=== PATIENT | female | born 1945 | race Caucasian/White ===

== ENCOUNTER → 2018-07-18 12:55 | Outpatient (CLI) | payer MEDICARE, SELFPAY ==
--- NOTE | 2018-07-18 | DI.MG.S_ITS ---
BILATERAL DIGITAL SCREENING MAMMOGRAM 3D/2D WITH CAD: 07/18/2018 CLINICAL: Routine screening. Comparison is made to exams dated: 02/05/2011 mammogram, 02/03/2010 mammogram, and 12/13/2008 mammogram - [facility]. The tissue of both breasts is heterogeneously dense. This may lower the sensitivity of mammography. Current study was also evaluated with a Computer Aided Detection (CAD) system. There is a focal asymmetry in the right breast central to the nipple middle depth. There also is a focal asymmetry with grouped calcifications in the right breast at 5 o'clock posterior depth. No other significant masses, calcifications, or other findings are seen in either breast. IMPRESSION: INCOMPLETE: NEEDS ADDITIONAL IMAGING EVALUATION The focal asymmetry in the right breast central to the nipple middle depth is indeterminate. Additional views with possible ultrasound are recommended. The focal asymmetry in the right breast at 5 o'clock posterior depth is indeterminate. Spot magnification views as well as additional views with possible ultrasound are recommended. This exam was interpreted at Station ID: [id number]. NOTE: For mammograms, a report in lay terms will be sent to the patient. Approximately 15% of breast malignancies will not be visualized mammographically. In the management of a palpable breast mass, a negative mammogram must not discourage biopsy of a clinically suspicious lesion. Electronically Signed By: Shira Perez M.D. lk/:07/18/2018 15:28:01 letter sent: Additional Imaging Needed ACR BI-RADS Category 0: Incomplete [id number]
== END ==
PROVIDERS: PCP Family Medicine; Visit Provider Family Medicine
DX: Z12.31 Encounter for screening mammogram for malignant neoplasm of breast (principal); Z78.0 Asymptomatic menopausal state
CPT/HCPCS: 77063; 77067; 77080

== ENCOUNTER → 2018-10-14 12:52 | Outpatient (CLI) | payer MEDICARE, SELFPAY ==
--- NOTE | 2018-10-14 | DI.MG.S_ITS ---
UNILATERAL RIGHT DIGITAL DIAGNOSTIC MAMMOGRAM 3D/2D WITH ADDITIONAL VIEWS: 10/14/2018 CLINICAL: Additional evaluation requested from prior study. Comparison is made to exams dated: 07/18/2018 mammogram, 02/05/2011 mammogram, and 02/03/2010 mammogram - [facility]. The tissue of right breast is heterogeneously dense. This may lower the sensitivity of mammography. There is 0.8 cm oval equal density asymmetry with an indistinct margin in the right breast at 7 o'clock posterior depth. There also are new grouped fine pleomorphic calcifications in the right breast at 5 o'clock posterior depth. No other significant masses or calcifications are seen in the breast. IMPRESSION: INCOMPLETE: NEEDS ADDITIONAL IMAGING EVALUATION The 0.8 cm oval equal density asymmetry in the right breast at 7 o'clock posterior depth is indeterminate. An ultrasound is recommended. The new grouped fine pleomorphic calcifications in the right breast at 5 o'clock posterior depth are at an intermediate suspicion for malignancy. A stereotactic biopsy is recommended. This exam was interpreted at Station ID: [id number]. NOTE: For mammograms, a report in lay terms will be sent to the patient. Approximately 15% of breast malignancies will not be visualized mammographically. In the management of a palpable breast mass, a negative mammogram must not discourage biopsy of a clinically suspicious lesion. Electronically Signed By: Dayton marshall/tamra:10/14/2018 13:40:12 letter sent: Need Ultrasound ACR BI-RADS Category 0: Incomplete [id number]
--- NOTE | 2018-10-14 | DI.US.S_ITS ---
LIMITED ULTRASOUND OF RIGHT BREAST AND AXILLA: 10/14/2018 CLINICAL: Patient returns for additional imaging over a suspected mass in the right breast. Comparison is made to exams dated: 10/14/2018 mammogram, 07/18/2018 mammogram, and 02/05/2011 mammogram - [facility]. Color flow and real-time ultrasound of the right breast lower outer quadrant and axilla regions were performed on the areas of interest. There is 0.6 cm x 0.7 cm x 0.6 cm irregular complicated cyst with a septated internal wall in the right breast at 7 o'clock middle depth. This irregular complicated cyst is hypoechoic with internal echoes and posterior acoustic enhancement. This correlates with mammography findings. Color flow imaging demonstrates that there is no vascularity present. No abnormalities were seen sonographically in the right axilla. IMPRESSION: SUSPICIOUS OF MALIGNANCY The 0.6 cm x 0.7 cm x 0.6 cm irregular complicated cyst in the right breast is consistent with a complicated cyst and is probably benign. A follow-up ultrasound in 6 months is recommended. A stereotactic guided biopsy is recommended for the calcifications at 5:00 seen on mammography. Findings were discussed with the patient at the conclusion of the study. This exam was interpreted at Station ID: [id number]. Electronically Signed By: Dayton marshall/:10/14/2018 15:28:16 letter sent: Biopsy Required Ultrasound BI-RADS: 4b Suspicious abnormality - intermediate suspicion of malignancy
== END ==
PROVIDERS: PCP Family Medicine; Visit Provider Family Medicine
DX: R92.1 Mammographic calcification found on diagnostic imaging of breast (principal); N60.01 Solitary cyst of right breast
CPT/HCPCS: 76642; 77065; G0279

== ENCOUNTER → 2019-05-06 14:21 | Outpatient (CLI) | payer MEDICARE, SELFPAY ==
--- NOTE | 2019-05-06 | DI.US.S_ITS ---
ULTRASOUND OF RIGHT BREAST AND AXILLA: 05/06/2019 CLINICAL: Patient returns for a 6 month follow up of the right breast. Comparison is made to exams dated: 10/14/2018 ultrasound, 10/14/2018 mammogram, 07/18/2018 mammogram, and 02/05/2011 mammogram - [facility]. Color flow and real-time ultrasound of the right breast axilla were performed. Baez scale images of the real-time examination were reviewed. There is a 0.9 cm x 0.7 cm x 0.7 cm cluster of irregular microcysts in the right breast at 7 o'clock middle depth 5 cm from the nipple. This cluster of irregular micro cysts is of mixed echogenicity, and in some views, appears taller than wide. This abnormality has increased slightly in size. Color flow imaging demonstrates that there is now increased vascularity in surrounding tissue. Possible adjacent architectural distortion. No abnormalities were seen sonographically in the right axilla. IMPRESSION: SUSPICIOUS OF MALIGNANCY The 0.9 cm cluster of irregular micro cysts in the right breast has developed mildly suspicious features and is at a low suspicion for malignancy. An ultrasound guided biopsy is recommended. Findings and recommendations were discussed with the patient by Dr. Beltrán at time of exam. This exam was interpreted at Station ID: [id number]. Electronically Signed By: Aliyah cruz/:05/06/2019 17:55:43 letter sent: Biopsy Required Ultrasound BI-RADS: 4a Suspicious abnormality - low suspicion for malignancy
== END ==
PROVIDERS: PCP Family Medicine; Visit Provider Family Medicine
DX: R92.8 Other abnormal and inconclusive findings on diagnostic imaging of breast (principal)
CPT/HCPCS: 76642

== ENCOUNTER → 2019-06-04 14:34 | Outpatient (CLI) | payer MEDICARE, SELFPAY ==
--- NOTE | 2019-06-04 | PATH_ITS ---
[facility] Accession Number: [id number] . 01 Material submitted: . breast - RIGHT BREAST MASS . 01 Diagnosis: Right Breast Mass, Biopsy: Portions of cyst wall, dilated ducts with hemosiderin-laden macrophages, minimal chronic inflammation, and multinucleated stromal giant cells. Background of fibrocystic change including microcysts, focal mild usual ductal hyperplasia, and associated scant microcalcifications. Negative for atypia, carcinoma in situ, and malignancy. [facility]/06/08/2019 . 01 Electronically signed: Stacey Macias MD, Pathologist NPI- [id number] . 01 Gross description: . Received in formalin and labeled right breast biopsy, are multiple pieces of alcantar-yellow soft tissue with a plastic filter. Specimen is loose in container. Specimen measures 1.9 x 1.0 x 0.3 cm in aggregate. Per the label on the jar, the specimen collection date was 06/04/2019 and the collection time was 3:35 p.m. Total fixation time between 12 and 24 hours. (MR:[id number]) /MRV . 01 Microscopic: . Deeper levels examined. . 01 Pathologist provided ICD-10: N63.10 . 01 CPT . 641080 Performed at: 01 [facility] [address], [place], [place] [id number] MD Dayton Nation MD Phone: [phone]
--- NOTE | 2019-06-04 | DI.US.S_ITS ---
ULTRASOUND GUIDED BIOPSY RIGHT BREAST USING VACUUM DEVICE WITH POST MAMMOGRAPHIC AND ULTRASOUND IMAGIN06/04/2019 CLINICAL: Right breast mass. PATIENT CONSENT: Risks (minor bleeding, infection, vasovagal reaction and repeat procedure), benefits and alternatives were explained to the patient and written informed consent was obtained. Correlation is made to exams dated: 06/04/2019 mammogram, 05/06/2019 ultrasound - [facility], 10/30/2018 specimen - [facility], 10/14/2018 ultrasound, 10/14/2018 mammogram, and 07/18/2018 mammogram - [facility]. An ultrasound guided biopsy using real-time ultrasound was performed for the oval mass located in the right breast at 7 o'clock middle depth. This was described on the previous ultrasound report. The skin was prepped in the usual manner. Local anesthetic was administered to the access site. The abnormality was approached from the lateral aspect. A 13 gauge biopsy needle was placed adjacent to the abnormality under ultrasound guidance. Once the needle was documented to be in the correct location, five specimens were obtained using the Mammotome biopsy system. Post procedure mammographic and ultrasound imaging demonstrates the clip at the targeted area. The specimens were sent to the laboratory for pathological analysis. IMPRESSION: ULTRASOUND GUIDED BIOPSY BENIGN Ultrasound guided biopsy of the mass in the right breast middle depth was successful. Pathology indicates portions of cyst wall, dilated ducts with hemosiderin laden macrophages, benign usual ductal hyperplasia (DHU), fibrocystic changes (FC), and chronic inflammation. Pathology results are concordant with imaging findings. Return to annual mammogram screening schedule is recommended. This exam was interpreted at Station ID: [id number]. Jaqueline Rea M.D. fx,aty/:06/09/2019 19:13:46
--- NOTE | 2019-06-04 | DI.MG.S_ITS ---
UNILATERAL RIGHT DIGITAL DIAGNOSTIC MAMMOGRAM POST-NEEDLE BIOPSY: 06/04/2019 CLINICAL: Post clip. Comparison is made to exams dated: 10/30/2018 stereotactic biopsy - [facility], 10/14/2018 mammogram, and 07/18/2018 mammogram - [facility]. The tissue of right breast is heterogeneously dense. This may lower the sensitivity of mammography. There is a surgical clip in the right breast at 7 o'clock posterior depth. IMPRESSION: POST PROCEDURE MAMMOGRAM FOR MARKER PLACEMENT The surgical clip is at the biopsy site. This exam was interpreted at Station ID: [id number]. NOTE: For mammograms, a report in lay terms will be sent to the patient. Approximately 15% of breast malignancies will not be visualized mammographically. In the management of a palpable breast mass, a negative mammogram must not discourage biopsy of a clinically suspicious lesion. Electronically Signed By: Jaqueline Garg M.D. fx/:06/05/2019 09:54:28 Entry: - 06/05/2019 09:54:28 ACR BI-RADS Category Post-procedure mammogram for marker placement
== END ==
PROVIDERS: PCP Family Medicine; Visit Provider Family Medicine
DX: N60.01 Solitary cyst of right breast (principal); N60.91 Unspecified benign mammary dysplasia of right breast; N60.41 Mammary duct ectasia of right breast; N61.0 Mastitis without abscess
CPT/HCPCS: 19083; 77065

== ENCOUNTER → 2020-01-06 16:11 | Outpatient (ROUT) | payer MEDICARE, SELFPAY ==
[2020-01-06 16:18] LABS: Add Manual Diff / Slide Review NO; Basophils Absolute Auto 0 /uL (0-100); Basophils Percent Auto 0.9 % (0-2); Eosinophils Absolute Auto 100 /uL (0-450); Eosinophils Percent Auto 2.8 % (2-4); Hematocrit 30.6 % (36-46); Hemoglobin 9.9 g/dL (12.0-16.0); Lymphocytes Absolute Auto 900 /uL (1100-4500); Lymphocytes Percent Auto 18.5 % (25-40); Mean Corpuscular HGB Conc 32.5 % (30-36); Mean Corpuscular Hemoglobin 33.4 PG (26-34); Mean Corpuscular Volume 102.9 fL (80-100); Monocytes Absolute Auto 400 /uL (0-900); Monocytes Percent Auto 7.8 % (3-14); Neutrophils Absolute Auto 3600 /uL (1500-7000); Platelet Count 293 X10^3/uL (150-400); Red Blood Cell Count 2.97 X10^6/uL (4.0-5.2); Red Cell Distribution Width 20.3 % (11.6-14.8); White Blood Cell Count 5.1 X10^3/uL (4.5-11.0)
[2020-01-06 16:30] LABS: Hemoglobin A1C% w Est Avg Glu 4.9 % (4.0-6.0)
[2020-01-06 16:39] LABS: Erythrocyte Sedimentation Rate 47 MM/HR (0-20)
== END ==
PROVIDERS: PCP Family Medicine; Visit Provider Family Medicine
DX: R73.01 Impaired fasting glucose (principal); R62.7 Adult failure to thrive; D64.9 Anemia, unspecified
CPT/HCPCS: 83036; 85025; 85651

== ENCOUNTER → 2020-01-14 15:27 | Outpatient (ROUT) | payer MEDICARE, SELFPAY ==
[2020-01-14 15:52] LABS: HEMOLYSIS < 15 (0-50); Iron 46 ug/dL (37-170)
[2020-01-14 15:56] LABS: Alanine Aminotransferase 14 IU/L (<35); Albumin 2.7 g/dL (3.5-5.0); Albumin Globulin Ratio 0.9 (1.0-2.8); Alkaline Phosphatase 97 U/L (38-126); Amylase < 30 U/L (30-110); Aspartate Aminotransferase 24 IU/L (14-36); BUN Creatinine Ratio 10.3 (6-22); Bilirubin Total 0.3 mg/dL (0.2-1.3); Blood Urea Nitrogen 6 mg/dL (7-17); C-Reactive Protein Quant 4.8 mg/dL (<1.0); Carbon Dioxide 25 mmol/L (22-32); Chloride 98 mmol/L (98-107); Estimated Glomerular Filt Rate > 60.0 mL/min (>60); Glucose 79 mg/dL (80-110); HEMOLYSIS < 15 (0-50); Lipase 45 U/L (23-300); Potassium 3.7 mmol/L (3.4-5.1); Sodium 131 mmol/L (137-145); Total Protein 5.7 g/dL (6.3-8.2)
[2020-01-14 16:03] LABS: Percent Iron Saturation 18 % (15-50); Total Iron Binding Capacity 253 ug/dL (265-497); Transferrin 198 mg/dL (206-381)
[2020-01-14 16:25] LABS: Thyroid Stimulating Hormone 4.31 uIU/mL (0.47-4.68)
[2020-01-14 16:29] LABS: Ferritin 31 ng/mL (11-264)
[2020-01-14 16:59] LABS: Folate 3.9 ng/mL (2.76-20.0); Vitamin B12 816 pg/mL (239-931)
== END ==
PROVIDERS: PCP Family Medicine; Visit Provider Family Medicine
DX: R62.7 Adult failure to thrive (principal); E03.9 Hypothyroidism, unspecified; N39.0 Urinary tract infection, site not specified; D64.9 Anemia, unspecified
CPT/HCPCS: 80053; 82150; 82607; 82728; 82746; 83540; 83550; 83690; 84443; 86140; 87086

== ENCOUNTER 2020-03-02 13:25 | Emergency (ER) | payer MEDICARE, SELFPAY ==
[2020-03-02 13:30] VITALS: BP 132/60; PULSE 69; RESP 13; TEMP 36.4; O2SAT 96; BMI 18.1
--- NOTE | 2020-03-02 13:34 | DI.CT.S_ITS ---
PROCEDURE: CT HEAD/BRAIN WO CON INDICATIONS: Acute altered mental status TECHNIQUE: Noncontrast 4.5 mm thick angled axial sections acquired from the foramen magnum to the vertex, with coronal and sagittal reformats. For radiation dose reduction, the following was used: automated exposure control, adjustment of mA and/or kV according to patient size. COMPARISON: None. FINDINGS: Image quality: Excellent. CSF spaces: Basal cisterns are patent. No extra-axial fluid collections. The ventricles are symmetric in size and shape. Brain: No intracranial bleeds or masses. There is cerebral volume loss for age, with resultant ventricular and sulcal prominence. There are periventricular and deep white matter chronic small vessel ischemic changes. There is intracranial internal carotid artery atherosclerosis. Skull and face: Calvarium and visualized facial bones appear intact, without suspicious lesions. Sinuses: Mucosal thickening causes complete opacification of the maxillary sinuses, ethmoid air cells and frontal sinuses. mastoids are clear. IMPRESSION: 1. No acute intracranial disease process. 2. 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 Dictated by: Kim Travis MD, PhD on 03/02/2020 at 14:10 Approved by: Kim Travis MD, PhD on 03/02/2020 at 14:14
[2020-03-02 13:58] LABS: Add Manual Diff / Slide Review NO; Basophils Absolute Auto 0 /uL (0-100); Basophils Percent Auto 0.7 % (0-2); Eosinophils Absolute Auto 100 /uL (0-450); Eosinophils Percent Auto 1.5 % (2-4); Hematocrit 32.3 % (36-46); Hemoglobin 11.2 g/dL (12.0-16.0); Lymphocytes Absolute Auto 1100 /uL (1100-4500); Lymphocytes Percent Auto 18.8 % (25-40); Mean Corpuscular HGB Conc 34.7 % (30-36); Mean Corpuscular Hemoglobin 38.2 PG (26-34); Mean Corpuscular Volume 110.2 fL (80-100); Monocytes Absolute Auto 500 /uL (0-900); Monocytes Percent Auto 8.5 % (3-14); Neutrophils Absolute Auto 4100 /uL (1500-7000); Neutrophils Percent Auto 70.5 % (50-75); Platelet Count 225 X10^3/uL (150-400); Red Blood Cell Count 2.93 X10^6/uL (4.0-5.2); Red Cell Distribution Width 21.3 % (11.6-14.8); White Blood Cell Count 5.8 X10^3/uL (4.5-11.0)
[2020-03-02 14:00] VITALS: BP 143/64; PULSE 67; RESP 12; O2SAT 98
[2020-03-02 14:05] LABS: Prothrombin Time 11.6 SECONDS (10.1-12.7)
--- NOTE | 2020-03-02 14:05 | PC.NURSE ---
Pt here from home. Pts states that she has been getting more weak over the last few months,mostly bed bound. Pt is normally asleep at this time of day per spouse,she is more of a night person up until approx 0400. Pt is very pale upon arrival and has some slurred speech and droopy eyelids. Pts spouse states that this is not abnormal for her.
[2020-03-02 14:08] LABS: PTT Partial Thromboplastin Tim 32 SECONDS (26.4-36.2)
--- NOTE | 2020-03-02 14:08 | ED.GENADULT ---
HPI - General Adult General Chief complaint: Weakness Stated complaint: increase in weakness Time Seen by Provider: 03/02/20 13:30 Source: patient and EMS Mode of arrival: EMS Limitations: no limitations History of Present Illness HPI narrative: 74-year-old female arrives by EMS with her after they were instructed to come to the emergency department by the patient's primary provider. Is reported by the patient's that over the past several months she has had a decline in oral intake to include food and liquid. Also spends most the time lying in bed during the day because she is too weak to get out of bed. Patient's states that over the past couple days she has had more problems even getting out of the bed and transitioning into the bedside commode. Related Data Home Medications Medication Instructions Recorded Confirmed Fexofenadine Hydrochloride 180 mg PO Q DAY #0 05/11/06 03/02/20 (Ada) Metoprolol Succinate (METOPROLOL 100 mg PO BID #0 06/06/13 03/02/20 XL) aspirin 81 mg PO QDAY #0 06/06/13 03/02/20 atorvastatin [Lipitor] 40 mg PO QDAY #0 tab 06/06/13 03/02/20 duloxetine [Cymbalta] 60 mg PO DAILY #0 ecc 06/06/13 03/02/20 furosemide 80 mg PO QDAY #0 tab 06/06/13 03/02/20 gabapentin [Neurontin] 900 mg PO TID #0 06/06/13 03/02/20 montelukast [Singulair] 10 mg PO QDAY #0 tab 06/06/13 03/02/20 omeprazole 40 mg PO QDAY #0 06/06/13 03/02/20 trazodone 100 mg PO ONCE HS #0 tab 06/06/13 03/02/20 Lactobacillus acidophilus 1 tab PO QDAY #0 12/25/16 03/02/20 alprazolam 0.25 mg PO QHS PRN #0 12/25/16 03/02/20 fluticasone propionate [24 Hour 1 spray INTRANASAL DAILY #0 12/25/16 03/02/20 Allergy Relief] acetaminophen 650 mg PO Q4H PRN 03/02/20 03/02/20 albuterol sulfate [Ventolin HFA] 2 puff INHALATION Q4-6H PRN 03/02/20 03/02/20 dicyclomine [Bentyl] 10 mg IM PRN PRN 03/02/20 03/02/20 naproxen sodium [Aleve] 220 mg PO Q12H PRN 03/02/20 03/02/20 ondansetron HCl [Zofran] 4 mg PO Q4HP PRN 03/02/20 03/02/20 Allergies Allergy/AdvReac Type Severity Reaction Status Date / Time No Known Drug Allergies Allergy Verified 03/02/20 13:33 Review of Systems Constitutional Constitutional: Reports fatigue, Denies fever(s), Denies headache(s), Reports lethargy, Reports malaise, Reports poor appetite and Reports weakness ENT Ears, Nose, Mouth, and Throat: Denies headache(s) Cardiovascular Cardiovascular: Denies chest pain Respiratory Respiratory: Denies cough Gastrointestinal Gastrointestinal: Denies abdominal pain Musculoskeletal Musculoskeletal: Denies deformity Integumentary/Breasts Skin/Breast: Denies lesions and Denies rash Neurologic Neurologic: Denies behavioral changes, Denies headache(s) and Reports weakness Psychiatric Psychiatric: Denies behavioral changes Endocrine Endocrine: Reports fatigue Hematologic/Lymphatic Hematologic/Lymphatic: Denies easy bleeding and Denies easy bruising Patient History Medical History Irritable bowel (Acute) Social History Smoking Status: Unknown if ever smoked Smoking Status: Unknown if ever smoked alcohol intake frequency: holidays/special occasions only Substance Use Type: does not use Exam Initial Vital Signs Initial Vital Signs: Vital Signs Temperature 97.6 F 03/02/20 13:30 Pulse Rate 69 03/02/20 13:30 Respiratory Rate 13 03/02/20 13:30 Blood Pressure 132/60 03/02/20 13:30 Pulse Oximetry 96 03/02/20 13:30 Const General: cooperative and frail appearing Limitations: mental status not altered HENSC Head: normal to inspection and normocephalic Resp Effort & Inspection: normal respiratory effort Auscultation: clear to auscultation bilaterally Cardio Rate: regular rate Rhythm: regular rhythm GI Inspection: non-distended Palpation: soft and No tender Skin General: pallor Lesions: no lesions Rashes: no rashes Neuro General: patient alert, patient awake and patient oriented x3 Cognition: normal cognition Speech: speech normal Extrem General: normal to inspection and capillary refill normal Psych Appearance: grossly normal and well kempt Scores GCS [place] coma scale eye opening: Spontaneous [place] coma scale verbal response: Orientated [place] coma scale motor response: Obey commands [place] coma scale total score: 15 Course Orders Ordered: ED Orders 03/02/20 13:32 EKG-12 Lead Stat 03/02/20 13:34 CT head/brain wo con Stat 03/02/20 13:45 Acetaminophen Stat Ammonia (NH3) Stat Complete Blood Count AUTO DIFF Stat Comprehensive Metabolic Panel Stat Ethanol (ETOH) Stat Lipase Stat Partial Thromboplastin Time Stat Prothrombin Time INR Stat Salicylate Stat Troponin I Stat Type and Screen Stat Sodium Chloride (Normal Saline 0.9%) 1,000 mls @ 100 mls/hr IV CONT CARINA Last Infusion: 03/02/20 18:05 Dose: 0 mls/hr Documented by: Admin: 03/02/20 15:12 Dose: 100 mls/hr Documented by: BRAVO Discontinued Medications Potassium Chloride 20 meq/ (Sodium Chloride) 260 mls @ 130 mls/hr IV NOW ONE Stop: 03/02/20 16:53 Last Infusion: 03/02/20 17:34 Dose: 0 mls/hr Documented by: MAGEN Cosigned by: RYLAND Admin: 03/02/20 15:24 Dose: 130 mls/hr Documented by: MAGEN Cosigned by: BRAVO Potassium Chloride (Potassium Chloride) 40 meq PO NOW ONE Stop: 03/02/20 14:55 Last Admin: 03/02/20 15:12 Dose: 40 meq Documented by: BRAVO Vital Signs Vital signs: Vital Signs - 8 hr 03/02/20 13:30 03/02/20 14:00 03/02/20 15:30 Temperature 97.6 F Pulse Rate 69 67 79 Respiratory Rate 13 12 16 Blood Pressure 132/60 Blood Pressure [Right Arm] 143/64 H 130/61 Pulse Oximetry 96 98 99 03/02/20 16:00 03/02/20 17:28 Temperature Pulse Rate 79 73 Respiratory Rate 14 18 Blood Pressure Blood Pressure [Right Arm] 158/86 H 109/53 L Pulse Oximetry 99 100 Medical Decision Making Lab Data Lab results reviewed: Yes I reviewed the patient's lab results. Result diagrams: 03/02/20 13:45 03/02/20 13:45 Labs: Lab Results 03/02/20 03/02/20 03/02/20 Range/Units 13:45 13:45 13:45 WBC 5.8 (4.5-11.0) X10^3/uL RBC 2.93 L (4.0-5.2) X10^6/uL Hgb 11.2 L (12.0-16.0) g/dL Hct 32.3 L (36-46) % MCV 110.2 H (80-100) fL MCH 38.2 H (26-34) PG MCHC 34.7 (30-36) % RDW 21.3 H (11.6-14.8) % Plt Count 225 (150-400) X10^3/uL Neut % (Auto) 70.5 (50-75) % Lymph % (Auto) 18.8 L (25-40) % [place] % (Auto) 8.5 (3-14) % Eos % (Auto) 1.5 L (2-4) % Baso % (Auto) 0.7 (0-2) % Neut # (Auto) 4100 (9570-5550) /uL Lymph # (Auto) 1100 (5922-3634) /uL [place] # (Auto) 500 (0-900) /uL Eos # (Auto) 100 (0-450) /uL Baso # (Auto) 0 (0-100) /uL RBC Morphology Not Reportable Macrocytosis 3+ H PT (10.1-12.7) SECONDS INR (0.9-1.3) APTT (26.4-36.2) SECONDS Sodium 129 L (137-145) mmol/L Potassium 2.5 L* (3.4-5.1) mmol/L Chloride 92 L (98-107) mmol/L Carbon Dioxide 31 (22-32) mmol/L BUN < 2 L (7-17) mg/dL Creatinine 0.43 L (0.52-1.04) mg/dL Estimated GFR > 60.0 (>60) mL/min BUN/Creatinine Ratio 4.7 L (6-22) Glucose 94 (80-110) mg/dL Calcium 7.8 L (8.4-10.2) mg/dL Total Bilirubin 0.6 (0.2-1.3) mg/dL AST 33 (14-36) IU/L ALT 24 (<35) IU/L Alkaline Phosphatase 88 (38-126) U/L Ammonia < 9 L (9-30) umol/L Troponin I (0.01-0.034) ng/mL Total Protein 6.0 L (6.3-8.2) g/dL Albumin 2.7 L (3.5-5.0) g/dL Globulin 3.3 (1.7-4.1) g/dL Albumin/Globulin Ratio 0.8 L (1.0-2.8) Lipase 58 (23-300) U/L Salicylates (<20) mg/dL Acetaminophen 36 H (10-30) ug/mL Ethyl Alcohol < 10 ( - 10) mg/dL Blood Type Antibody Screen 03/02/20 03/02/20 03/02/20 Range/Units 13:45 13:45 13:45 WBC (4.5-11.0) X10^3/uL RBC (4.0-5.2) X10^6/uL Hgb (12.0-16.0) g/dL Hct (36-46) % MCV (80-100) fL MCH (26-34) PG MCHC (30-36) % RDW (11.6-14.8) % Plt Count (150-400) X10^3/uL Neut % (Auto) (50-75) % Lymph % (Auto) (25-40) % [place] % (Auto) (3-14) % Eos % (Auto) (2-4) % Baso % (Auto) (0-2) % Neut # (Auto) (1734-2912) /uL Lymph # (Auto) (8879-8954) /uL [place] # (Auto) (0-900) /uL Eos # (Auto) (0-450) /uL Baso # (Auto) (0-100) /uL RBC Morphology Macrocytosis PT 11.6 (10.1-12.7) SECONDS INR 1.0 (0.9-1.3) APTT 32 (26.4-36.2) SECONDS Sodium (137-145) mmol/L Potassium (3.4-5.1) mmol/L Chloride (98-107) mmol/L Carbon Dioxide (22-32) mmol/L BUN (7-17) mg/dL Creatinine (0.52-1.04) mg/dL Estimated GFR (>60) mL/min BUN/Creatinine Ratio (6-22) Glucose (80-110) mg/dL Calcium (8.4-10.2) mg/dL Total Bilirubin (0.2-1.3) mg/dL AST (14-36) IU/L ALT (<35) IU/L Alkaline Phosphatase (38-126) U/L Ammonia (9-30) umol/L Troponin I < 0.012 (0.01-0.034) ng/mL Total Protein (6.3-8.2) g/dL Albumin (3.5-5.0) g/dL Globulin (1.7-4.1) g/dL Albumin/Globulin Ratio (1.0-2.8) Lipase (23-300) U/L Salicylates 1.0 (<20) mg/dL Acetaminophen (10-30) ug/mL Ethyl Alcohol ( - 10) mg/dL Blood Type A Positive Antibody Screen Negative Urine Dip Bedside Urine Glucose Negative Bedside Urine Bilirubin - Negative Bedside Urine Ketone - Negative Urine Specific [place] 1.005 Bedside Urine Occult Blood - Negative Bedside Urine pH 7.0 Bedside Urine Protein - Negative Bedside Urine Urobilinogen - Negative Bedside Urine Nitrite - Negative Bedside Urine Leukocytes - Negative Esterase Point of care testing: Urine Dip Bedside Urine Glucose Negative Bedside Urine Bilirubin - Negative Bedside Urine Ketone - Negative Urine Specific [place] 1.005 Bedside Urine Occult Blood - Negative Bedside Urine pH 7.0 Bedside Urine Protein - Negative Bedside Urine Urobilinogen - Negative Bedside Urine Nitrite - Negative Bedside Urine Leukocytes - Negative Esterase Imaging Data CT scan - head: Radiologist's Impression: [address] [address] [address] Scan Report Signed Patient: Kelly Benavidez R#: [id number] : 7Acct:[id number] Age/Sex: 74 / FDate of Service: 03/02/20 Loc: ED Accession Number: [id number] Procedure: CT head/brain wo con Ordering Provider: Berhane Espinal D.O. PROCEDURE: CT HEAD/BRAIN WO CON INDICATIONS: Acute altered mental status TECHNIQUE: Noncontrast 4.5 mm thick angled axial sections acquired from the foramen magnum to the vertex, with coronal and sagittal reformats. For radiation dose reduction, the following was used: automated exposure control, adjustment of mA and/or kV according to patient size. COMPARISON: None. FINDINGS: Image quality: Excellent. CSF spaces: Basal cisterns are patent. No extra-axial fluid collections. The ventricles are symmetric in size and shape. Brain: No intracranial bleeds or masses. There is cerebral volume loss for age, with resultant ventricular and sulcal prominence. There are periventricular and deep white matter chronic small vessel ischemic changes. There is intracranial internal carotid artery atherosclerosis. Skull and face: Calvarium and visualized facial bones appear intact, without suspicious lesions. Sinuses: Mucosal thickening causes complete opacification of the maxillary sinuses, ethmoid air cells and frontal sinuses. mastoids are clear. IMPRESSION: 1. No acute intracranial disease process. 2. 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 Dictated by: Kim Travis MD, PhD on 03/02/2020 at 14:10 Approved by: Kim Travis MD, PhD on 03/02/2020 at 14:14 ECG Data Attestation: I personally reviewed and interpreted this ECG as follows: Prior ECG tracings: not available for review Interpretation: Sinus rhythm Ventricular rate is 71 Normal axis Normal QRS Nonspecific ST T wave changes MDM Narrative Medical decision making narrative: Patient was hypokalemic upon arrival. This was replaced with oral and IV medicines. Patient's weakness has been progressively worsening over weeks/months per her . No definitive cause was found today. I feel that the hypokalemia his less likely the cause of her weakness. Had several discussions today with her primary provider. Patient does not meet criteria to be admitted to the hospital. Patient's primary provider would like to see the patient tomorrow in the office. Her already has an appointment with him. I did discuss this with the family the importance of taking her to this appointment. Patient has been given return precautions and follow-up instructions. They expressed understanding and agreement. Discharge Plan Departure Patient Disposition: Home Clinical Impression: Hypokalemia, Hyponatremia, Weakness Instructions: DI for Muscle Weakness Activity Restrictions/Additional Instructions: Continue all of your medications as directed. Dr. Mccloud would like to see both of you in his office tomorrow like we discussed. Return to the emergency department for any new symptoms Prescriptions: No Action Fexofenadine Hydrochloride (Ada) tablet 180 mg PO Q DAY Qty: 0 RF: 0 furosemide 40 MG tablet 80 mg PO QDAY Qty: 0 RF: 0 aspirin 81 MG tablet,delayed release (DR/EC) 81 mg PO QDAY Qty: 0 RF: 0 omeprazole 40 MG capsule,delayed release(DR/EC) 40 mg PO QDAY Qty: 0 RF: 0 Metoprolol Succinate (METOPROLOL XL) tablet 100 mg PO BID Qty: 0 RF: 0 atorvastatin [Lipitor] 20 MG tablet 40 mg PO QDAY Qty: 0 RF: 0 gabapentin [Neurontin] 300 MG capsule 900 mg PO TID Qty: 0 RF: 0 trazodone 50 MG tablet 100 mg PO ONCE HS Qty: 0 RF: 0 montelukast [Singulair] 10 MG tablet 10 mg PO QDAY Qty: 0 RF: 0 duloxetine [Cymbalta] 60 MG capsule,delayed release(DR/EC) 60 mg PO DAILY Qty: 0 RF: 0 Lactobacillus acidophilus 1 EACH capsule 1 tab PO QDAY Qty: 0 RF: 0 fluticasone propionate [24 Hour Allergy Relief] 16 GM spray,suspension 1 spray Intranasal DAILY Qty: 0 RF: 0 alprazolam 0.25 MG tablet 0.25 mg PO QHS PRN (Reason: Anxiety) Qty: 0 RF: 0 dicyclomine [Bentyl] 10 mg/mL Solution 10 mg IM PRN PRN (Reason: Diarrhea) RF: 0 naproxen sodium [Aleve] 220 mg Tablet 220 mg PO Q12H PRN (Reason: Pain (Scale Score 1-3)) RF: 0 albuterol sulfate [Ventolin HFA] 90 mcg/actuation Hfa Aerosol Inhaler 2 puff INHALATION Q4-6H PRN (Reason: Shortness Of Breath) RF: 0 ondansetron HCl [Zofran] 4 MG tablet 4 mg PO Q4HP PRN (Reason: Nausea) RF: 0 acetaminophen 325 mg Capsule 650 mg PO Q4H PRN (Reason: Pain (Scale Score 1-3)) RF: 0 Referrals: Berhane Mccloud MD [Primary Care Provider] -
[2020-03-02 14:11] LABS: Ammonia (NH3) < 9 umol/L (9-30)
[2020-03-02 14:12] LABS: Acetaminophen 36 ug/mL (10-30); Alanine Aminotransferase 24 IU/L (<35); Albumin 2.7 g/dL (3.5-5.0); Albumin Globulin Ratio 0.8 (1.0-2.8); Alkaline Phosphatase 88 U/L (38-126); Aspartate Aminotransferase 33 IU/L (14-36); Bilirubin Total 0.6 mg/dL (0.2-1.3); Calcium 7.8 mg/dL (8.4-10.2); Carbon Dioxide 31 mmol/L (22-32); Chloride 92 mmol/L (98-107); Estimated Glomerular Filt Rate > 60.0 mL/min (>60); Ethanol (ETOH) < 10 mg/dL; Globulin 3.3 g/dL (1.7-4.1); Glucose 94 mg/dL (80-110); HEMOLYSIS < 15 (0-50); Lipase 58 U/L (23-300); Sodium 129 mmol/L (137-145)
[2020-03-02 14:13] LABS: BUN Creatinine Ratio 4.7 (6-22); Blood Urea Nitrogen < 2 mg/dL (7-17)
[2020-03-02 14:14] LABS: Potassium 2.5 mmol/L (3.4-5.1)
[2020-03-02 14:17] LABS: Macrocytosis 3+
[2020-03-02 14:23] LABS: Troponin I < 0.012 ng/mL (0.01-0.034)
[2020-03-02] MEDS: SODIUM CHLORIDE 0.9% 1,000 ML 100 ML IV (15:12)
[2020-03-02] MEDS: POTASSIUM CHLORIDE 20 MEQ/15 ML UDC 40 MEQ PO (15:12)
[2020-03-02] MEDS: POTASSIUM CHLORIDE 20 MEQ in SODIUM CHLORIDE 0.9% 250 ML 130 ML IV (15:24)
[2020-03-02 15:30] VITALS: BP 130/61; PULSE 79; RESP 16; O2SAT 99
[2020-03-02 16:00] VITALS: BP 158/86; PULSE 79; RESP 14; O2SAT 99
[2020-03-02 17:28] VITALS: BP 109/53; PULSE 73; RESP 18; O2SAT 100
[2020-03-02 18:25] VITALS: BP 109/53; PULSE 73; RESP 22; O2SAT 100
== END 2020-03-02 18:26 | disposition home or self-care (01) ==
PROVIDERS: Emergency Provider Emergency Medicine; PCP Family Medicine
DX: E87.6 Hypokalemia (principal); E87.1 Hypo-osmolality and hyponatremia; R53.1 Weakness; R41.82 Altered mental status, unspecified
CPT/HCPCS: 36415; 70450; 80053; 80320; 80329; 81003; 82140; 83690; 84484; 85025; 85610; 85730; 86850; 86900; 86901; 93005; 93010; 96365; 96366; 96368; 99284; G0480; J3480

== ENCOUNTER 2020-03-07 10:10 | Inpatient (IN) | payer MEDICARE, SELFPAY ==
[2020-03-07 12:14] VITALS: BP 189/75; PULSE 73; RESP 16; TEMP 36.6; O2SAT 98
[2020-03-07 12:25] VITALS: BMI 16.8
[2020-03-07 12:27] LABS: Add Manual Diff / Slide Review NO; Basophils Absolute Auto 100 /uL (0-100); Basophils Percent Auto 1.9 % (0-2); Eosinophils Absolute Auto 100 /uL (0-450); Eosinophils Percent Auto 1.8 % (2-4); Hematocrit 33.2 % (36-46); Hemoglobin 11.3 g/dL (12.0-16.0); Lymphocytes Absolute Auto 1000 /uL (1100-4500); Lymphocytes Percent Auto 31.5 % (25-40); Mean Corpuscular HGB Conc 34.1 % (30-36); Mean Corpuscular Hemoglobin 38.3 PG (26-34); Mean Corpuscular Volume 112.4 fL (80-100); Monocytes Absolute Auto 300 /uL (0-900); Monocytes Percent Auto 10.1 % (3-14); Neutrophils Absolute Auto 1800 /uL (1500-7000); Neutrophils Percent Auto 54.7 % (50-75); Platelet Count 218 X10^3/uL (150-400); Red Blood Cell Count 2.95 X10^6/uL (4.0-5.2); Red Cell Distribution Width 20.8 % (11.6-14.8); White Blood Cell Count 3.3 X10^3/uL (4.5-11.0)
[2020-03-07] MEDS: SODIUM CHLORIDE 0.9% 1,000 ML 100 ML IV ×2 (12:30→23:47)
[2020-03-07 12:39] LABS: Alanine Aminotransferase 29 IU/L (<35); Albumin 2.5 g/dL (3.5-5.0); Albumin Globulin Ratio 0.7 (1.0-2.8); Alkaline Phosphatase 65 U/L (38-126); BUN Creatinine Ratio 12.5 (6-22); Bilirubin Total 0.6 mg/dL (0.2-1.3); Blood Urea Nitrogen 5 mg/dL (7-17); Calcium 7.6 mg/dL (8.4-10.2); Carbon Dioxide 28 mmol/L (22-32); Chloride 96 mmol/L (98-107); Estimated Glomerular Filt Rate > 60.0 mL/min (>60); Globulin 3.5 g/dL (1.7-4.1); Glucose 78 mg/dL (80-110); HEMOLYSIS 76 (0-50); Sodium 126 mmol/L (137-145)
[2020-03-07 12:40] LABS: Anisocytosis 1+; Aspartate Aminotransferase 43 IU/L (14-36); Poikilocytosis 1+
--- NOTE | 2020-03-07 13:35 | DI.CT.S_ITS ---
PROCEDURE: CT ABDOMEN PELVIS W CON INDICATIONS: failure to thrive. abdominal pain TECHNIQUE: After the administration of oral and intravenous contrast, 5 mm thick sections acquired from the diaphragms to the symphysis. 5 mm thick coronal and sagittal reformats were performed. For radiation dose reduction, the following was used: automated exposure control, adjustment of mA and/or kV according to patient size. COMPARISON: None. FINDINGS: Image quality: Excellent. ABDOMEN: Lung bases: There are partially visualized bilateral [id number] pleural effusions with associated mild compressive atelectasis. Heart size is normal. Solid organs: Within the anterior left hepatic lobe in segment 2, there is a subcapsular oval hypodense lesion measuring up to 1.8 x 1.0 cm with attenuation values higher than expected for a simple cyst. In segment 4B of the anterior left hepatic lobe, there is also a small subcapsular hypodense lesion measuring up to 1.1 x 1.0 cm also demonstrating attenuation values higher than expected for a simple cyst. The liver demonstrates heterogeneous enhancement with indistinct peripheral areas of mild hypervascularity. The hepatic artery and portal vein appear patent. The inferior vena cava also appears grossly patent with mild mixing or or artifact. The gallbladder appears within normal limits without calcified gallstones. Biliary system is non-dilated. Pancreas enhances normally. No peripancreatic fat stranding or fluid collections. No pancreatic duct dilatation. The spleen is normal in size. No adrenal nodules. Kidneys demonstrate no hydronephrosis. Peritoneum and bowel: Stomach and small bowel loops are normal in caliber and wall thickness. No pericecal inflammatory changes to suggest appendicitis. There is mild segmental wall thickening of the descending and sigmoid colon compatible with a mild nonspecific colitis. A small amount of intraperitoneal free fluid is demonstrated in the abdomen and pelvis. No free air. Nodes and vessels: No retroperitoneal or mesenteric adenopathy. Aorta and inferior vena cava are normal in caliber. Miscellaneous: No ventral hernias. PELVIS: Genitourinary: Bladder wall thickness is normal. Miscellaneous: No inguinal hernias or adenopathy. Bones: No suspicious bony lesions. No vertebral body compression fractures. IMPRESSION: 1. Mild segmental wall thickening within the descending and sigmoid colon compatible with a nonspecific colitis, likely infectious or inflammatory. 2. Low-density lesions in the left hepatic lobe with attenuation values higher than expected for simple cysts. The findings are nonspecific and may represent complex cysts or hemangiomas among other etiologies. 3. Partially visualized bilateral [id number] pleural effusions. Dictated by: Dayton Warren M.D. on 03/07/2020 at 14:18 Approved by: Dayton Warren M.D. on 03/07/2020 at 14:35
[2020-03-07 13:52] LABS: Iron 69 ug/dL (37-170)
[2020-03-07 13:53] LABS: HEMOLYSIS 63 (0-50)
[2020-03-07 14:03] LABS: Percent Iron Saturation 36 % (15-50); Total Iron Binding Capacity 191 ug/dL (265-497); Transferrin 143 mg/dL (206-381)
--- NOTE | 2020-03-07 14:20 | PC.NURSE ---
Day Shift- Pt arrived via [employer] transfer to room 221 via stretcher at 1150. Pt settled into the bed, oriented to call light. Pt's Davey entered room shortly after and helped wih admission questions. NS @ 100mls per hr per order started at 1230 to new PIV to right AC. Bed alarm on, pt has hx of falls at home, states is bed bound, weakness, malnourished. Pt to CT abd Scan and back at 1405 via bed.
[2020-03-07 14:31] LABS: Ferritin 47 ng/mL (11-264)
[2020-03-07 16:00] VITALS: BP 139/92; PULSE 70; RESP 17; TEMP 36.1; O2SAT 99
[2020-03-07 16:12] VITALS: BP 139/92; PULSE 70
[2020-03-07] MEDS: METOPROLOL ER 50 MG TABLET PO (16:12)
[2020-03-07] MEDS: GABAPENTIN 300 MG CAPSULE 900 MG PO ×2 (16:12→20:56)
--- NOTE | 2020-03-07 17:06 | P.HP_ITS ---
History of Present Illness History of Present Illness Date Patient Seen: 03/07/20 Time Patient Seen: 13:52 Date of Onset of Symptoms: 07/08/19 Chief complaint: Failure to thrive Narrative: Patient is a patient of Dr. Mccloud is doing cross covering for. Apparently she has had since July progressive weakness and to the point of bed-bound status. There was no definitive event as far as I can tell. It was just a progressive worsening. She has had a history of some emotional issues but patient herself felt like mostly is just she did not feel like eating and she had diarrhea. It has been chronic. There has never been any blood. Over the last 2 months or so. She has been unable to do much other than stay in bed. She had been getting up to go to the bathroom but even toileting is become an issue recently. Is at least a single person if not 2 person assist getting out of bed. Home health had came in and did not feel as if they had anything definitive to offer. She is is not felt well. Has progressively been weak. Has had some headaches but a CT scan done not too long ago was normal. She has had no chest pain. No shortness of breath. No orthopnea. No PND. She has had a history of ulcer disease. With multiple ulcers in the past. She is not really having any dysphagia or early satiety. She is really not eating. She has been progressively nauseated. No fevers or chills. No cough. No night sweats. No urinary complaints. No one else has been sick in the house. Patient did was having significant cramping in her abdomen over the last 3 weeks but started on dicyclomine and now is doing much better. Still having loose stools but no other issues. Patient does have a history of colon polyps. Is past due for her last colonoscopy. It sounds as if she had adenomatous polyps but unclear. Patient has had a 20 lb plus weight loss over the last 6-12 months Patient has a history of anxiety and depression. Does not totally feel that way. Has been seen by psych in the past. Past medical history: Myocardial infarction, hypertension, hyperlipidemia, anxiety, history of gastric ulcer, history of colon polyps, hypokalemia, asthma, history of anemia, Past surgical history: Eye surgery 1958, D&C x3, hysterectomy 1988 Family history: Father age 88 prostate cancer, mother age 51 lung cancer, siblings diabetes, hypertension, hyperlipidemia, Social history. 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[facility] [employer], 1 son Noah, Habits nonsmoker, occasional alcohol in the past, Patient History Medical History Irritable bowel (Acute) Family & Social History Social History: household members spouse Prior Living Arrangements House Safety & Behavioral: Feels Safe in Current Yes Environment Been Physically Hurt or No Threatened By a Person Suicidal Ideation Description None Suicide Plan Description No Plan Tobacco & Substance use: Smoking Status Never smoker alcohol intake frequency holiday/special occasion Substance Use Type does not use Meds Home Medications and Allergies Home Medications Medication Instructions Recorded Confirmed Type Fexofenadine Hydrochloride 180 mg PO Q DAY #0 05/11/06 03/02/20 History (Ada) Metoprolol Succinate (METOPROLOL 100 mg PO BID #0 06/06/13 03/02/20 History XL) aspirin 81 mg PO QDAY #0 06/06/13 03/02/20 History atorvastatin [Lipitor] 40 mg PO QDAY #0 tab 06/06/13 03/02/20 History duloxetine [Cymbalta] 60 mg PO DAILY #0 ecc 06/06/13 03/02/20 History furosemide 80 mg PO QDAY #0 tab 06/06/13 03/02/20 History gabapentin [Neurontin] 900 mg PO TID #0 06/06/13 03/02/20 History montelukast [Singulair] 10 mg PO QDAY #0 tab 06/06/13 03/02/20 History omeprazole 40 mg PO QDAY #0 06/06/13 03/02/20 History trazodone 100 mg PO ONCE HS #0 tab 06/06/13 03/02/20 History Lactobacillus acidophilus 1 tab PO QDAY #0 12/25/16 03/02/20 History alprazolam 0.25 mg PO QHS PRN #0 12/25/16 03/02/20 History fluticasone propionate [24 Hour 1 spray INTRANASAL DAILY #0 12/25/16 03/02/20 History Allergy Relief] acetaminophen 650 mg PO Q4H PRN 03/02/20 03/02/20 History albuterol sulfate [Ventolin HFA] 2 puff INHALATION Q4-6H PRN 03/02/20 03/02/20 History dicyclomine [Bentyl] 10 mg IM PRN PRN 03/02/20 03/02/20 History naproxen sodium [Aleve] 220 mg PO Q12H PRN 03/02/20 03/02/20 History ondansetron HCl [Zofran] 4 mg PO Q4HP PRN 03/02/20 03/02/20 History Allergies Allergy/AdvReac Type Severity Reaction Status Date / Time adhesive tape AdvReac Rash Verified 03/07/20 12:05 Review of Systems Review of Systems ROS: Yes All systems reviewed with the patient and are negative except as otherwise documented Exam Vital Signs (past 8 hours): - 03/07/20 12:14 03/07/20 16:00 03/07/20 16:12 Temperature 98 F 97.0 F L Pulse Rate 73 70 70 Respiratory Rate 16 17 Blood Pressure 189/75 H 139/92 H 139/92 H Pulse Oximetry 98 99 Oxygen Delivery Method Room Air Oxygen Flow Rate 0 Narrative Exam Narrative: Alert elderly female pale in appearance in no acute distress. Fatigued. Mucous membranes moist. Bulbar conjunctivae are pale. No oral lesions. Neck supple without adenopathy JVD or bruits. No thyromegaly. No adenopathy supraclavicular period lungs are clear. Heart regular rate and rhythm. Abdomen is soft positive bowel sounds nontender. Extremities without cyanosis clubbing edema. Neurologic exam is nonfocal. Patient is somewhat flat affect but interactive and answering questions. Objective Labs Result Diagrams: 03/07/20 12:17 03/07/20 12:17 Labs: Laboratory Results - last 24 hr 03/07/20 03/07/20 03/07/20 12:17 12:17 12:17 WBC 3.3 L RBC 2.95 L Hgb 11.3 L Hct 33.2 L MCV 112.4 H MCH 38.3 H MCHC 34.1 RDW 20.8 H Plt Count 218 Neut % (Auto) 54.7 Lymph % (Auto) 31.5 [place] % (Auto) 10.1 Eos % (Auto) 1.8 L Baso % (Auto) 1.9 Neut # (Auto) 1800 Lymph # (Auto) 1000 L [place] # (Auto) 300 Eos # (Auto) 100 Baso # (Auto) 100 RBC Morphology Not Reportable Poikilocytosis 1+ H Anisocytosis 1+ H Sodium 126 L Potassium 4.0 D Chloride 96 L Carbon Dioxide 28 BUN 5 L Creatinine 0.40 L Estimated GFR > 60.0 BUN/Creatinine Ratio 12.5 Glucose 78 L Calcium 7.6 L Iron 69 TIBC 191 L % Saturation 36 Transferrin 143 L Ferritin Total Bilirubin 0.6 AST 43 H ALT 29 Alkaline Phosphatase 65 Total Protein 6.0 L Albumin 2.5 L Globulin 3.5 Albumin/Globulin Ratio 0.7 L 03/07/20 12:17 WBC RBC Hgb Hct MCV MCH MCHC RDW Plt Count Neut % (Auto) Lymph % (Auto) [place] % (Auto) Eos % (Auto) Baso % (Auto) Neut # (Auto) Lymph # (Auto) [place] # (Auto) Eos # (Auto) Baso # (Auto) RBC Morphology Poikilocytosis Anisocytosis Sodium Potassium Chloride Carbon Dioxide BUN Creatinine Estimated GFR BUN/Creatinine Ratio Glucose Calcium Iron TIBC % Saturation Transferrin Ferritin 47 Total Bilirubin AST ALT Alkaline Phosphatase Total Protein Albumin Globulin Albumin/Globulin Ratio Assessment & Plan Assessment & Plan narrative: Failure to thrive. Consists of multiple issues. Well patient does seem to be or have an interesting psychological presentation she does have some issues at need to be addressed. Question is why issue so nauseated we can she eat and will have to figure that out. Will go from where we are and proceed from there. Chronic diarrhea with abnormal CT scan. Probably needs colonoscopy. Will see what she has for blood in her stool. Does not appear to be part of her anemia. Seems to be more chronic. Whether not her diarrhea is related to her: Her not will have to be seen. Will discuss with surgeons tomorrow. Continue with her Bentyl. Nausea. Etiology is unclear. Patient has significant history gastric ulcers. May need EGD. Certainly have a lot of work to do before we have answers to this question. Could be related to: Issues also. Will continue her PPI Zofran for nausea and will discuss with surgeons once I know more. Bilateral pleural effusions. Could be related to her nutritional status. Could be other issues. May need echo. May also need CT scan to evaluate pulmonary status and rule out any masses. Certainly with her history of weight loss. I would like to go over the CT scan with radiologist when I have the chance. Will do that in the morning. Liver masses. Probably benign but unclear. Will discuss with radiologist may need ultrasound to evaluate. Hypertension. Poorly controlled the patient did take her medicines this morning will see what that means. Will follow from there. Hopefully getting back on medicine is an adequate otherwise will have to follow. Generalized weakness. Patient has had a CT scan certainly not an MRI but no ev idence of loss. Otherwise no significant other change. At this point will need physical therapy but I would like to clear a few things up before I order. Hopefully in the next day he. Suspect that will have some time to do this. History of hypokalemia stable. History of coronary artery disease. Does not appear to be cardiac but does have bilateral pleural effusions. May need echo to follow. Otherwise will continue usual medicines. Anemia. Appears to be chronic iron studies overall look pretty good. Will check B12 and folate. Will see will guaiac shows but I do not think this is an iron deficiency anemia. Code status full. DVT prophylaxis SCDs. GI prophylaxis will be on PPI. Disposition. Interesting case patient is severely compromised at this point. I suspect it will take 3 or 4 days to clarify what is going on depending on what we need and surgical consults input. Hopefully will have clarity once I talk with radiologist and get a better idea what is going on. Will go from there. Quality VTE Deep Vein Thrombosis/Pulmonary Embolism Present on Admission: No
[2020-03-07 17:18] LABS: Bacteria Urine None Seen; RBC Urine None Seen (0-5/HPF)
[2020-03-07 17:22] LABS: Appearance Urine UA CLEAR; Bilirubin Urine UA NEGATIVE (NEGATIVE); Color Urine UA YELLOW; Glucose Urine UA NEGATIVE (Negative); Ketones Urine UA TRACE (NEGATIVE); Leukocyte Esterase Urine UA NEGATIVE (NEGATIVE); Nitrite Urine UA NEGATIVE (Negative); Occult Blood Urine UA NEGATIVE (Negative); Protein Urine UA NEGATIVE (Negative); Specific Gravity Urine UA <=1.005 (1.000-1.035); Urobilinogen Urine UA 0.2 E.U./dL (0.2)
[2020-03-07 17:28] LABS: Culture Indicated Urine Cult Not Indicated; Squamous Epithelial Cell Urine 0-1 /HPF (0-5/HPF); WBC Urine 0-1/HPF (0-5/HPF)
[2020-03-07 20:25] VITALS: BP 163/66; PULSE 75; RESP 16; TEMP 36.4
[2020-03-07] MEDS: ATORVASTATIN 20 MG TABLET 40 MG PO (20:56)
[2020-03-07] MEDS: TRAZODONE 50 MG TABLET 100 MG PO (20:56)
[2020-03-07] MEDS: SODIUM CHLORIDE 0.9% FLUSH 10 ML IV (20:56)
[2020-03-07] MEDS: DULOXETINE 30 MG CAPSULE 60 MG PO ×2 (20:56→21:13)
[2020-03-07] MEDS: ONDANSETRON 4 MG/2 ML INJ IV (20:56)
[2020-03-07 22:20] VITALS: O2SAT 98
[2020-03-07 23:35] VITALS: BP 120/54; PULSE 81; RESP 14; TEMP 36.6; O2SAT 96
[2020-03-08] MEDS: PANTOPRAZOLE 40 MG TABLET PO (05:56)
[2020-03-08 07:00] VITALS: BP 160/60; PULSE 75; RESP 18; TEMP 36.4; O2SAT 98
[2020-03-08 07:19] LABS: Add Manual Diff / Slide Review NO; Basophils Absolute Auto 0 /uL (0-100); Basophils Percent Auto 0.2 % (0-2); Eosinophils Absolute Auto 100 /uL (0-450); Hematocrit 30.1 % (36-46); Hemoglobin 10.3 g/dL (12.0-16.0); Lymphocytes Absolute Auto 1000 /uL (1100-4500); Lymphocytes Percent Auto 15.6 % (25-40); Mean Corpuscular HGB Conc 34.1 % (30-36); Mean Corpuscular Hemoglobin 38.7 PG (26-34); Mean Corpuscular Volume 113.6 fL (80-100); Monocytes Absolute Auto 500 /uL (0-900); Neutrophils Absolute Auto 4900 /uL (1500-7000); Neutrophils Percent Auto 75.2 % (50-75); Platelet Count 198 X10^3/uL (150-400); Red Blood Cell Count 2.65 X10^6/uL (4.0-5.2); Red Cell Distribution Width 20.9 % (11.6-14.8); White Blood Cell Count 6.5 X10^3/uL (4.5-11.0)
[2020-03-08 07:26] LABS: BUN Creatinine Ratio 11.8 (6-22); Blood Urea Nitrogen 4 mg/dL (7-17); Calcium 7.2 mg/dL (8.4-10.2); Carbon Dioxide 24 mmol/L (22-32); Chloride 102 mmol/L (98-107); Estimated Glomerular Filt Rate > 60.0 mL/min (>60); Glucose 80 mg/dL (80-110); HEMOLYSIS 18 (0-50); Magnesium 1.1 mg/dL (1.6-2.3); Potassium 3.2 mmol/L (3.4-5.1); Sodium 130 mmol/L (137-145)
[2020-03-08 07:41] LABS: Anisocytosis 2+
--- NOTE | 2020-03-08 07:51 | PM.CN ---
History of Present Illness Consult details Date Patient Seen: 03/08/20 Time Patient Seen: 07:50 Chief complaint: Failure to thrive Reason for consult: Failure to thrive Requesting provider: Berhane Santana Narrative: CHIEF COMPLAINT: ??I had a rough year? HISTORY OF PRESENT ILLNESS: Kelly Benavidez is a 74-year-old female who was referred by her home team for an evaluation of depression after being admitted with vague symptoms of nausea and chronic diarrhea as well as significant weight loss, weakness, and failure to thrive. The patient reports a long history of depression most closely associated with seasonal affective disorder dating back to 1971. She was 1st diagnosed with depression after she was caring for her mother who had cancer and while at the same time the patient lost her 1st to miscarriage. This plunged her into a significant level of depression and she has had numerous episodes of depression over the ensuing 50 years since then. The patient states that many of her depressive episodes relate to living in the [place] and suffering from seasonal affective disorder. For many years she and her would travel [facility] for the winter and this was effective in helping to reduce the level of her depression, but in the last 3-4 years, they have been unable to do so due to various reasons related to family obligations. This past winter, they were planning to go to [facility] when the patient's and son both came down with a very severe upper respiratory illness in August and September which she then contracted into October and November. By that time the COVID-[address] and they were unable to leave. During the past several months, her mood has gradually declined with worsening depression, as well as decreased motivation and energy. Patient states that she has a fairly large master bedroom which makes comfortable to stay there and essentially never leave. In terms of symptoms, the patient reports severely depressed mood, anhedonia, initial insomnia, psychomotor retardation, fatigue, anergy, poor concentration, and most significantly anorexia with a 20 lb weight loss since October. She denies any suicidal ideation, intent, or plan and this has never been an issue for her during her lifetime with depression. She also endorses symptoms of chronic anxiety for which she takes a very low dose of alprazolam on a daily basis. She denies any symptoms of psychosis, susanna, or PTSD. She has been treated in the past with numerous antidepressants including tricyclic antidepressants, serotonin reuptake inhibitors, and others. Her usual antidepressant regimen of Cymbalta 60 mg per day and trazodone 50 mg at bedtime has been recently changed by Dr. Santana to taper off the Cymbalta and start her on Lexapro. COLLATERAL FROM STAFF: The patient has been alert and cooperative as well as friendly with the staff. PAST PSYCHIATRIC HISTORY: As noted above, the patient was 1st evaluated for depression in 1971 and has had multiple psychiatrists over the years. He has also been treated with numerous different antidepressants. She had difficulty remembering her naming them at the time many include multiple tricyclics as well as several SSRIs including fluoxetine, sertraline, and paroxetine. She has no prior suicide attempts or psychiatric admissions. He has also been treated with multiple series of psychotherapy. Her most recent and successful treatment of depression was with Cymbalta 60 mg per day and trazodone 50 mg at night. SUBSTANCE USE HISTORY: Rarely drinks, does not use drugs FAMILY HISTORY: Patient denies a family history of depression at this time DEVELOPMENTAL AND SOCIAL HISTORY: The patient was born and raised in [facility] and lived there until age 12 when she moved with her family around various problems is in [facility] including [facility], [place], and [place]. Her mom was a [id number] mom and did a lot of volunteer work. Her dad was an product safety administrator with the [email or web address]. Her childhood was described as generally unremarkable. 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 She moved to the [place] after meeting her in college and marrying him and then went to graduate school for nursing as well. 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 She has been for 50 years with their 50th anniversary coming up next month. PCP: DR. BERHANE SANTANA SIGNIFICANT MEDICAL HISTORY: SEE BELOW Meds Home Medications and Allergies Home Medications Medication Instructions Recorded Confirmed Type Fexofenadine Hydrochloride 180 mg PO Q DAY #0 05/11/06 03/08/20 History (Ada) Metoprolol Succinate (METOPROLOL See Rx Instructions .ROUTE 06/06/13 03/08/20 History XL) .COMPLEX #0 MDD 150 aspirin 81 mg PO QDAY #0 06/06/13 03/08/20 History atorvastatin [Lipitor] 40 mg PO QDAY #0 tab 06/06/13 03/08/20 History duloxetine [Cymbalta] 30 mg PO DAILY #0 ecc 06/06/13 03/08/20 History gabapentin [Neurontin] 900 mg PO TID #0 06/06/13 03/08/20 History montelukast [Singulair] 10 mg PO QDAY #0 tab 06/06/13 03/08/20 History omeprazole 40 mg PO QDAY #0 06/06/13 03/08/20 History trazodone 100 mg PO ONCE HS #0 tab 06/06/13 03/08/20 History Lactobacillus acidophilus 1 tab PO QDAY #0 12/25/16 03/08/20 History alprazolam 0.25 mg PO QHS PRN #0 12/25/16 03/08/20 History fluticasone propionate [24 Hour 1 spray INTRANASAL DAILY #0 12/25/16 03/02/20 History Allergy Relief] acetaminophen 650 mg PO Q4H PRN 03/02/20 03/08/20 History albuterol sulfate [Ventolin HFA] 2 puff INHALATION Q4-6H PRN 03/02/20 03/08/20 History dicyclomine [Bentyl] 10 mg IM PRN PRN 03/02/20 03/08/20 History naproxen sodium [Aleve] 220 mg PO Q12H PRN 03/02/20 03/08/20 History ondansetron HCl [Zofran] 4 mg PO Q4HP PRN 03/02/20 03/08/20 History conjugated estrogens [Premarin] 03/08/20 History dimenhydrinate [Dramamine] 25 mg PO Q4-6H PRN 03/08/20 03/08/20 History escitalopram oxalate 20 mg PO DAILY 03/08/20 03/08/20 History eszopiclone 2 mg PO BEDTIME 03/08/20 03/08/20 History Allergies Allergy/AdvReac Type Severity Reaction Status Date / Time adhesive tape AdvReac Rash Verified 03/07/20 12:05 Review of Systems Review of Systems ROS: Yes All systems reviewed with the patient and are negative except as otherwise documented Constitutional Constitutional: Reports fatigue, Reports lethargy and Reports weight loss Gastrointestinal Gastrointestinal: Reports cramping and Reports nausea Psychiatric Psychiatric: Reports as per HPI Endocrine Endocrine: Reports fatigue Exam Vital Signs (past 8 hours): Oxygen Delivery Method Room Air Oxygen Flow Rate 0 Narrative Exam Narrative: MENTAL STATUS EXAM: Appearance: the patient is a thin and pale female seen in her hospital room lying in her hospital bed. She is dressed in [facility] and adequately groomed for her situation 1st thing in the morning. Behavior: She is pleasant, friendly, calm, and cooperative with the evaluation. Eye contact is good. There appears to be mild psychomotor slowing. There were no involuntary movements or tremor. Gait: Not observed Speech: Normal rate, volume, and herlinda Mood: I have been pretty depressed. Affect: Moderately dysphoric, somewhat constricted but congruent with content. Thought Process: Linear, logical, goal-directed Thought Content: Thought content consists of vague nihilistic thoughts of but no overt suicidal or homicidal ideation, intent, or plan. There was no evidence of a formal thought or perceptual disturbance. Attention: Attentive to interview Orientation: Oriented to person place and time Memory: Intact for interview, not formally tested Insight: Good Judgment: Good Objective Labs Result Diagrams: 03/08/20 06:55 03/08/20 06:55 Labs: Laboratory Results - last 24 hr 03/07/20 03/07/20 03/07/20 12:17 12:17 12:17 WBC 3.3 L RBC 2.95 L Hgb 11.3 L Hct 33.2 L MCV 112.4 H MCH 38.3 H MCHC 34.1 RDW 20.8 H Plt Count 218 Neut % (Auto) 54.7 Lymph % (Auto) 31.5 [place] % (Auto) 10.1 Eos % (Auto) 1.8 L Baso % (Auto) 1.9 Neut # (Auto) 1800 Lymph # (Auto) 1000 L [place] # (Auto) 300 Eos # (Auto) 100 Baso # (Auto) 100 RBC Morphology Not Reportable Poikilocytosis 1+ H Anisocytosis 1+ H Sodium 126 L Potassium 4.0 D Chloride 96 L Carbon Dioxide 28 BUN 5 L Creatinine 0.40 L Estimated GFR > 60.0 BUN/Creatinine Ratio 12.5 Glucose 78 L Calcium 7.6 L Magnesium Iron 69 TIBC 191 L % Saturation 36 Transferrin 143 L Ferritin Total Bilirubin 0.6 AST 43 H ALT 29 Alkaline Phosphatase 65 Total Protein 6.0 L Albumin 2.5 L Globulin 3.5 Albumin/Globulin Ratio 0.7 L Urine Color Urine Appearance Urine pH Ur Specific [place] Urine Protein Urine Glucose (UA) Urine Ketones Urine Occult Blood Urine Nitrate Urine Bilirubin Urine Urobilinogen Ur Leukocyte Esterase Urine RBC Urine WBC Ur Squamous Epith Cells Urine Bacteria Ur Culture Indicated? 03/07/20 03/07/20 03/08/20 12:17 17:05 06:55 WBC 6.5 D RBC 2.65 L Hgb 10.3 L Hct 30.1 L MCV 113.6 H MCH 38.7 H MCHC 34.1 RDW 20.9 H Plt Count 198 Neut % (Auto) 75.2 H D Lymph % (Auto) 15.6 L [place] % (Auto) 8.0 Eos % (Auto) 1.0 L Baso % (Auto) 0.2 Neut # (Auto) 4900 Lymph # (Auto) 1000 L [place] # (Auto) 500 Eos # (Auto) 100 Baso # (Auto) 0 RBC Morphology Not Reportable Poikilocytosis Anisocytosis 2+ H Sodium Potassium Chloride Carbon Dioxide BUN Creatinine Estimated GFR BUN/Creatinine Ratio Glucose Calcium Magnesium Iron TIBC % Saturation Transferrin Ferritin 47 Total Bilirubin AST ALT Alkaline Phosphatase Total Protein Albumin Globulin Albumin/Globulin Ratio Urine Color Yellow Urine Appearance Clear Urine pH 7.0 Ur Specific [place] <=1.005 Urine Protein Negative Urine Glucose (UA) Negative Urine Ketones Trace H Urine Occult Blood Negative Urine Nitrate Negative Urine Bilirubin Negative Urine Urobilinogen 0.2 Ur Leukocyte Esterase Negative Urine RBC None seen Urine WBC 0-1/hpf Ur Squamous Epith Cells 0-1 /hpf Urine Bacteria None seen Ur Culture Indicated? Cult not indicated 03/08/20 06:55 WBC RBC Hgb Hct MCV MCH MCHC RDW Plt Count Neut % (Auto) Lymph % (Auto) [place] % (Auto) Eos % (Auto) Baso % (Auto) Neut # (Auto) Lymph # (Auto) [place] # (Auto) Eos # (Auto) Baso # (Auto) RBC Morphology Poikilocytosis Anisocytosis Sodium 130 L Potassium 3.2 L Chloride 102 Carbon Dioxide 24 BUN 4 L Creatinine 0.34 L Estimated GFR > 60.0 BUN/Creatinine Ratio 11.8 Glucose 80 Calcium 7.2 L Magnesium 1.1 L Iron TIBC % Saturation Transferrin Ferritin Total Bilirubin AST ALT Alkaline Phosphatase Total Protein Albumin Globulin Albumin/Globulin Ratio Urine Color Urine Appearance Urine pH Ur Specific [place] Urine Protein Urine Glucose (UA) Urine Ketones Urine Occult Blood Urine Nitrate Urine Bilirubin Urine Urobilinogen Ur Leukocyte Esterase Urine RBC Urine WBC Ur Squamous Epith Cells Urine Bacteria Ur Culture Indicated? Assessment & Plan Assessment & Plan narrative: ASSESSMENT: Kelly Benavidez is a 74-year-old woman with a long history of depression and probable seasonal affective disorder recently suffered a number of stressors which inhibited her ability to go to [facility] for the winter. Since the beginning of the year, her symptoms of depression have gradually worsened to the point that she is practically bed rid and has no energy to do anything. Diagnostically, she clearly fits a diagnosis of recurrent episode of major depression. However, given that she has a family history of cancer and her age of 74, prudence would indicate a thorough medical workup in addition to initiating treatment for depression. She has had multiple trials of different antidepressants with successfully treatment with duloxetine and trazodone for many years, but their effectiveness seems to have waned in the last couple of years. At this time, we will do a trial of an SSRI, Lexapro, as already initiated by Dr. Santana. However we may also be more aggressive with respect to augmentation strategies given the level of weight loss and decline which puts this patient at significant risk of other complications. DIAGNOSES: Major depressive disorder, recurrent episode, severe without psychotic features Anxiety RECOMMENDATIONS: 1. Continue escitalopram 20 mg p.o. q.day 2. Continue trazodone 100 mg p.o. q.h.s. 3. Concur with nutritional augmentation and dietary consult 4. Concur with physical therapy evaluation and treatment, would also encourage, as much as feasible, that patient get up and about and move to interact with people and get exposure to daylight. 5. Will continue to follow with you while patient is an inpatient. Also happy to follow up with this patient as an outpatient following discharge. 6. Will consider antidepressant augmentation strategies in future. Time Spent With Patient Time with patient: Greater than 35 minutes
[2020-03-08 08:31] LABS: Vitamin B12 854 pg/mL (239-931)
--- NOTE | 2020-03-08 08:38 | PM.PN.1 ---
Subjective Subjective Date Patient Seen: 03/08/20 Time Patient Seen: 08:42 Interval history: Patient overall about the same. Had some increase in diet last night. Has not had a bowel movement. Nausea is overall controlled. Seen by psychiatrist today. Feels depression certainly has a major contributors to her issue. She otherwise has no change. Exam Vital Signs (past 8 hours): Oxygen Delivery Method Room Air Oxygen Flow Rate 0 Narrative Exam Narrative: Alert fatigued female in no acute distress. HEENT exam mucous membranes moist. Neck supple without adenopathy. Lungs are clear. Heart regular rate and rhythm without murmurs clicks rubs or gallops. Abdomen is soft positive bowel sounds nontender. Extremities without cyanosis clubbing edema. Skin is pale. Neurologic exam is nonfocal. Objective Labs Result Diagrams: 03/08/20 06:55 03/08/20 06:55 Labs: Laboratory Results - last 24 hr 03/07/20 03/07/20 03/07/20 12:17 12:17 12:17 WBC 3.3 L RBC 2.95 L Hgb 11.3 L Hct 33.2 L MCV 112.4 H MCH 38.3 H MCHC 34.1 RDW 20.8 H Plt Count 218 Neut % (Auto) 54.7 Lymph % (Auto) 31.5 Ness % (Auto) 10.1 Eos % (Auto) 1.8 L Baso % (Auto) 1.9 Neut # (Auto) 1800 Lymph # (Auto) 1000 L Ness # (Auto) 300 Eos # (Auto) 100 Baso # (Auto) 100 RBC Morphology Not Reportable Poikilocytosis 1+ H Anisocytosis 1+ H Sodium 126 L Potassium 4.0 D Chloride 96 L Carbon Dioxide 28 BUN 5 L Creatinine 0.40 L Estimated GFR > 60.0 BUN/Creatinine Ratio 12.5 Glucose 78 L Calcium 7.6 L Magnesium Iron 69 TIBC 191 L % Saturation 36 Transferrin 143 L Ferritin Total Bilirubin 0.6 AST 43 H ALT 29 Alkaline Phosphatase 65 Total Protein 6.0 L Albumin 2.5 L Globulin 3.5 Albumin/Globulin Ratio 0.7 L Vitamin B12 Folate Urine Color Urine Appearance Urine pH Ur Specific [place] Urine Protein Urine Glucose (UA) Urine Ketones Urine Occult Blood Urine Nitrate Urine Bilirubin Urine Urobilinogen Ur Leukocyte Esterase Urine RBC Urine WBC Ur Squamous Epith Cells Urine Bacteria Ur Culture Indicated? 06/05/1903/07/20 03/08/20 12:17 17:05 06:55 WBC 6.5 D RBC 2.65 L Hgb 10.3 L Hct 30.1 L MCV 113.6 H MCH 38.7 H MCHC 34.1 RDW 20.9 H Plt Count 198 Neut % (Auto) 75.2 H D Lymph % (Auto) 15.6 L Ness % (Auto) 8.0 Eos % (Auto) 1.0 L Baso % (Auto) 0.2 Neut # (Auto) 4900 Lymph # (Auto) 1000 L Ness # (Auto) 500 Eos # (Auto) 100 Baso # (Auto) 0 RBC Morphology Not Reportable Poikilocytosis Anisocytosis 2+ H Sodium Potassium Chloride Carbon Dioxide BUN Creatinine Estimated GFR BUN/Creatinine Ratio Glucose Calcium Magnesium Iron TIBC % Saturation Transferrin Ferritin 47 Total Bilirubin AST ALT Alkaline Phosphatase Total Protein Albumin Globulin Albumin/Globulin Ratio Vitamin B12 Folate Urine Color Yellow Urine Appearance Clear Urine pH 7.0 Ur Specific [place] <=1.005 Urine Protein Negative Urine Glucose (UA) Negative Urine Ketones Trace H Urine Occult Blood Negative Urine Nitrate Negative Urine Bilirubin Negative Urine Urobilinogen 0.2 Ur Leukocyte Esterase Negative Urine RBC None seen Urine WBC 0-1/hpf Ur Squamous Epith Cells 0-1 /hpf Urine Bacteria None seen Ur Culture Indicated? Cult not indicated 03/08/20 03/08/20 06:55 06:55 WBC RBC Hgb Hct MCV MCH MCHC RDW Plt Count Neut % (Auto) Lymph % (Auto) Ness % (Auto) Eos % (Auto) Baso % (Auto) Neut # (Auto) Lymph # (Auto) Ness # (Auto) Eos # (Auto) Baso # (Auto) RBC Morphology Poikilocytosis Anisocytosis Sodium 130 L Potassium 3.2 L Chloride 102 Carbon Dioxide 24 BUN 4 L Creatinine 0.34 L Estimated GFR > 60.0 BUN/Creatinine Ratio 11.8 Glucose 80 Calcium 7.2 L Magnesium 1.1 L Iron TIBC % Saturation Transferrin Ferritin Total Bilirubin AST ALT Alkaline Phosphatase Total Protein Albumin Globulin Albumin/Globulin Ratio Vitamin B12 854 Folate 3.0 Urine Color Urine Appearance Urine pH Ur Specific [place] Urine Protein Urine Glucose (UA) Urine Ketones Urine Occult Blood Urine Nitrate Urine Bilirubin Urine Urobilinogen Ur Leukocyte Esterase Urine RBC Urine WBC Ur Squamous Epith Cells Urine Bacteria Ur Culture Indicated? Assessment & Plan Assessment & Plan narrative: Failure to thrive. Suspected multiple issues see below. Certainly depression from Dr. baxter prospective does have a potential significant role. Will see how things go. And work from there. Severe malnutrition. Dietitian will be seen and hopefully as we get her feeling better and established diagnosis is completely this will improve but will have to watch closely. Hypo magnesium. IV replacement today. Hypokalemia. Will replace orally today recheck tomorrow. Decrease calcium. IV replacement today. Re-evaluate in a.m.. Pleural effusions. Etiology is unclear. Could be secondary to a low-protein for malnutrition, could be secondary to congestive heart failure we have to see what develops with that. Could be pulmonary issue. Discussed with radiologist. Will obtain CT scan with and without contrast and re-evaluate. Depending on findings may need to consider tap but will see what that shows. History of ulcers with decreased ability to eat and failure to thrive. Has been on medication but due to her history I think she with her nausea needs EGD period of discussed with surgeon. Chronic diarrhea with abnormal CT scan: with persistent diarrhea needs to have colonoscopy. Patient has a history of abnormalities. Discussed with surgeon hopefully we get this done in the near future. Depression. Probably main contributor but certainly have multiple other issues to deal with. Appreciate Dr. baxter input. Will continue trazodone switch to Lexapro has been recent and will need to continue to follow as an outpatient. Dr. ruano said he would follow her as an outpatient and we will see how things go. Generalized weakness. No evidence of central change. CT scan was negative at this point I think this is just deconditioning but will have to see what happens. PT evaluation today. Anemia. B12 and folate are normal. Iron studies are low normal. Could be secondary to GI loss will hold further treatment at this time seems to be stable and see what GI evaluation shows. May need to consider housekeeping department worker if no obvious findings are developed. Could be secondary [place] nutrition. History of coronary artery disease. No evidence of cardiac issue other than possible pleural effusions. Will see. Liver lesions. Suspect this is secondary to benign cyst discussed with radiologist will follow-up ultrasound as outpatient. Code status full. DVT prophylaxis SCDs. GI prophylaxis on PPI. Disposition. Patient with multiple issues that need to be resolved. Will begin with electrolyte treatment today and will begin physical therapy. Consult surgeons for EGD and colonoscopy. Will follow and proceed from there. If CT scan of chest does not show anything definitive will obtain echo. Quality VTE Deep Vein Thrombosis/Pulmonary Embolism Present on Admission: No
[2020-03-08] MEDS: MONTELUKAST 10 MG TABLET PO (08:58)
[2020-03-08] MEDS: GABAPENTIN 300 MG CAPSULE 900 MG PO ×4 (08:58→20:52)
[2020-03-08] MEDS: METOPROLOL ER 50 MG TABLET PO (08:58)
[2020-03-08] MEDS: SODIUM CHLORIDE 0.9% FLUSH 10 ML IV (08:59)
[2020-03-08] MEDS: CALCIUM GLUCONATE 9.3 MEQ in SODIUM CHLORIDE 0.9% 50 ML 70 ML IV (09:03)
[2020-03-08] MEDS: MAGNESIUM SULFATE 2 GM/50 ML PIGGYBACK IV (09:04)
--- NOTE | 2020-03-08 09:46 | DI.CT.S_ITS ---
PROCEDURE: CT CHEST WO/W CON COMPARISON: [facility], CT, CT ABDOMEN PELVIS W CON, 03/07/2020, 13:27. INDICATIONS: plueral effusion Technique: [address] images of chest were obtained before and after IV infusion of contrast material. Coronal and sagittal reformats were obtained and reviewed. FINDINGS: Lungs: Moderate left greater than right bilateral pleural effusion is seen with adjacent compressive atelectasis in posterior aspect of bilateral upper and lower lobes. No pneumothorax. Biapical scarring is seen. Central and peripheral airway is patent and normal in size. Mediastinum: The heart size is normal, and no pericardial effusion. Subcentimeter right precarinal lymph node measures 8mm in size is seen. No enlarged hilar lymph node is seen by size criteria. Thoracic aorta and pulmonary arteries are well-opacified with no intraluminal filling defect or dissection. No thoracic aortic aneurysm. Esophageal wall thickness is normal, with a small hiatal hernia. Chest wall: There is no supraclavicular or axillary lymphadenopathy. Thyroid gland is within normal limits. No acute osseous abnormality. No suspicious osseous lesion. No compression fracture is seen in thoracic spine. Abdomen: Visualized upper abdomen again shows hypodense areas involving right and left hepatic lobes which may represent hemangioma. IMPRESSION: 1. Left greater than right bilateral moderate pleural effusion with atelectasis in posterior aspect of bilateral lung restrepo. No pneumothorax. Airway is patent. 2. Subcentimeter mediastinal lymph nodes as above. Heart size is normal. No thoracic aortic aneurysm or dissection. No gross pulmonary embolism. 3. Stable hypodensities in right and left hepatic lobes likely represent benign process such as hepatic cysts and hemangioma. Dictated by: Artemio Shaw M.D. on 03/08/2020 at 9:58 Approved by: Artemio Shaw M.D. on 03/08/2020 at 10:39
[2020-03-08 10:44] VITALS: BMI 16.9
--- NOTE | 2020-03-08 10:47 | DIET.PN ---
Dietary Progress Note Assessment: 74y F admitted for failure to thrive referred to nutrition to assess malnutrition. Spoke c pt and her spouse at bedside. Pt has had slow decline for +3mo with quicker decline in past few weeks. Pt UBW is 47kg most of adult life, pt has 15% unintentional wt loss since late 2019 with 6.5% unintentional wt loss in past week c accompanying chronic diarrhea, weakness, low BMI (16.9) qualifying pt as Severe Acute on Chronic Protein Calorie Malnutrition. Pt has IBS manifesting as cramping diarrhea frequently c undigested vegetable matter in toilet. Pt reports her mother always said pt has sensitive stomach. Pt endorses food avoidance r/t fear of IBS sx. Additionally pt has loss of appetite consuming 1 meal/d c a few bites otherwise. Pt's started measuring her fluid intake which has been 20-24oz water/d for past week. Pt has IBS associated chronic diarrhea and takes no MVI, was taking align probiotic. Pt had met c RD several years in past. Used to tolerate a glass of wine c dinner, but has no current etoh intake. Pt's says pt has [employer] on 22/04 as background noise which leads her to become stressed. High association c stress and IBS flares. HT: 154.9cm WT: 40.5kg UBW: 47kg (85% of [place] Body Weight) BMI: 16.9 Labs: Na 130 L, K+ 3.2 L MNA: 2 malnourished George: 15 high risk for skin breakdown Nutrition Diagnosis: Severe Acute on Chronic PCM r/t low appetite and also fear of IBS sx (diarrhea) aeb unintentional weight loss 15% in 6 mo and 6.5% in 1 w, pt consuming <50% EERs in >1mo, BMI 16.9 (severe), chronic cramping diarrhea secondary to IBS, severe muscle and fat wasting throughout c accompanying weakness. Interventions: 1. Discussed stress management for IBS flares, pt idea generated several easy to access stress reducers (sitting on her boat, napping, turning off tv). 2. Recc ONS Ricardo as PRO supp as pt appetite still quite low and pt not drinking Ensures. Diet Order: General EER: 1400 kcal (+350kcal for weight gain), 55g PRO (1.3g/kg per malnutrition) Monitoring/Evaluations: ONS tolerance, POs
[2020-03-08 11:47] VITALS: BP 154/68; PULSE 81
[2020-03-08] MEDS: ONDANSETRON 4 MG/2 ML INJ IV ×2 (12:29→23:53)
[2020-03-08 12:56] VITALS: BP 167/68; PULSE 85; RESP 18; TEMP 36.6; O2SAT 99
[2020-03-08] MEDS: SODIUM CHLORIDE 0.9% 1,000 ML 100 ML IV ×2 (13:11→21:04)
--- NOTE | 2020-03-08 13:30 | PT.IIE ---
Surgery Performed Operation Date: 03/09/20 15:45 <No data on this case meets the specified criteria> Medical History (Last Reviewed 03/08/20 @ 09:17 by Chris Perez MD) Irritable bowel (Acute) Physical Therapy Inpatient Evaluation/Re-Eval M1 PT/OT-IP Prior Functional Status Start: 03/08/20 16:50 Freq: NEEDED Status: Active Protocol: Document 03/08/20 13:30 AB (Rec: 03/08/20 17:24 AB [id number]) Medical Review Prior Functional Status Medical History Reviewed Yes Communication able to make needs known Mobility and Gait pt stated that she is able to walk to the toilet using 4WW but has not been walking or moving much and just stays in bed or sitting on her recliner . spouse stated that pt has been declining in function since last june but due to the pandemic did not go to the hospital Social History Household Members spouse,children Living Arrangements House Number of Floors (Floors) 3 or More Floors Number of Stairs To Enter/Railing? has no step to get into the house but has 1 flight of steps with R rail to living area and another flight of steps with L rail to bedroom level Home Environment Standard Height Toilet,Walk in Shower Home Equipment Four Wheel Walker,Bedside Commode,Shower Seat without Backrest,Hand Held Shower,Grab Bars In Shower Additional Social History Comment stated that she has an adjustable bed with L rail M2 PT-IP Current Condition Start: 03/08/20 16:50 Freq: NEEDED Status: Active Protocol: Document 03/08/20 13:30 AB (Rec: 03/08/20 17:24 AB [id number]) Physical Therapy Current Condition Current Condition Evaluation Date 03/08/20 Treatment Diagnosis failure to thrive; difficulty in walking Onset Date 03/07/20 M3 PT-IP Subjective Start: 03/08/20 16:50 Freq: NEEDED Status: Active Protocol: Document 03/08/20 13:30 AB (Rec: 03/08/20 17:24 AB [id number]) Subjective Physical Therapy Visit Type Type Initial Evaluation Visit Start Time 13:30 Visit Stop Time 14:10 Total Visit Minutes 40 Number of PRECONSTRUCTION MANAGER Visits 0 Physical Therapy Visit Comments Patient Comments pt agreed to do PT but refused to sit up on chair Therapy Pain Assessment Pain Present Pain Present Denied Pain M4 PT-IP Mobility and Gait Start: 03/08/20 16:50 Freq: NEEDED Status: Active Protocol: Document 03/08/20 13:30 AB (Rec: 03/08/20 17:24 AB [id number]) PT-Bed Mobility Assessment Supine to Sit Supine to Sit Maximum Assistance,1 Person Assistance,Head of Bed Elevated Sit to Supine Sit to Supine Maximum Assistance Scooting Scooting to Edge of Bed Maximum Assistance Scooting Up and Down in Bed Maximum Assistance PT-Transfer Assessment Sit to and From Stand Sit to and from Stand Maximum Assistance,1 Person Assistance,2 Person Assistance ,Use of Upper Extremities Equipment Transfer Assistive Device Bed Rail,Front Wheeled Walker Orthotic/Prosthetic Devices or Brace: No Transfers Transfer Destination Bedside Commode Transfer Technique Stand Step Pivot Transfer Ability Level of Assist Maximum Assistance,1 Person Assistance,2 Person Assistance ,Use of Upper Extremities Comments Mobility Comments BP in supine: 140/60. completed supine to sit with HOB elevated max A and max cues. pt required mod A to maintain sitting balance on EOB. pt with increase cervical flexion and cued to sit up straigth but pt stated that it is hard to keep her head up. c/o dizziness. completed sit to stand max A x 2 and max cues but stated that she has to sit down. BP checked: 122/62. pt completed sit to stand max A x 2 and max cues and completed stand step transfer max A x 1-2 to bedside commode. completed sit to stand from bedside commode max A x 2 and max cues and was able to maintain standing using FWW for support max A. pt stated that she will not be able to sit up on chair and just wants to go back to bed. completed step transfer using FWW max A x 1-2 and max cues. sit to supine max A and max cues. positioned pt on bed. call light and table placed within reach. BP: 147/63. PT-Balance Assessment Sitting Balance and Reactions Static Sitting Balance Ability Fair Dynamic Sitting Balance Ability Poor Standing Balance and Reactions Static Standing Balance Ability Poor Dynamic Standing Balance Ability Poor Device Used FWW M5 PT-IP Objective Assessments Start: 03/08/20 16:50 Freq: NEEDED Status: Active Protocol: Document 03/08/20 13:30 AB (Rec: 03/08/20 17:24 AB [id number]) Orientation Orientation/Cognition Level of Alertness Alert Orientation Name Safety Awareness Decreased Safety Awareness Memory Description Short Term Impaired Gross Range of Motion Lower Extremity ROM Assessment Within Functional Limits Strength Lower Extremity Strength Assessment Bilaterally Impaired Hip 3+/5 Knee 3+/5 Coordination Assessment Gross Coordination Gross Coordination WNL Sensation Assessment Sensation Gross Sensation WNL Muscle Tone Muscle Tone WNL Yes M6 PT-IP Treatment Start: 03/08/20 16:50 Freq: NEEDED Status: Active Protocol: Document 03/08/20 13:30 AB (Rec: 03/08/20 17:24 AB [id number]) Physical Therapy Treatment Education Education Provided Safety M7 PT-IP Assessment and Plan Start: 03/08/20 16:50 Freq: NEEDED Status: Active Protocol: Document 03/08/20 13:30 AB (Rec: 03/08/20 17:24 AB [id number]) PT Summary Assessment and Plan Potential Rehabilitation Potential Fair Status of Condition at Evaluation Evolving Summary Impairments Pain,ROM,Strength,Balance, Coordination,Sensation,Tone, Cognition,Bed Mobility, Transfers,Gait,Activity Tolerance Assessment Summary pt requiring 2person max A with mobility and has decrease activity tolerance and unable to ambulate at this time. pt will require SNF rehab to improve strength and mobility. Goals Bed Mobility Goal Contact Guard Assistance Transfer Goal Contact Guard Assistance,Front Wheeled Walker Gait Goal Contact Guard Assistance,Front Wheel Walker Gait Distance 50 Other Goals up/down 12 steps 1 rail CGA Days to Meet Goals 10 Frequency of Treatment Frequency Of Treatment Once a Day Treatment Plan Physical Therapy Treatment Plan Bed Mobility Training,Transfer Training,Gait Training, Therapeutic Exercise,Balance Retraining,Discharge Planning, Neuromuscular Re-ed, Coordination Retraining Recommendations To Nursing Amount of Assist Needed 2 Person Assist Discharge Recommendations PT Discharge Recommendations SNF Rehab Transportation Needs at Discharge Wheelchair/Cabulance,Stretcher /Ambulance
--- NOTE | 2020-03-08 14:24 | PC.NURSE ---
Day shift note: Dr. Kendall made aware regarding Gabapentin dose change from 900 mg to 300 mg as per home routine TID, also addition of Albuterol INH.
[2020-03-08 15:40] VITALS: BP 143/61; PULSE 81; RESP 15; TEMP 36.6; O2SAT 97
--- NOTE | 2020-03-08 16:12 | CM.DANOTE ---
DCP/Assessment: Reviewed chart. Patient is a 74yr old female admitted to [facility] with failure to thrive. Patient admitted directly by PCP office. PCP is Dr. Mccloud. Primary payor is 1)Medicare 2)[facility]. Met with patient this AM explained role. Patient alert and oriented, resting in bed at time of visit. Patient reports a decline in her mobility over the last week. Patient reports up until last week she had home health through [facility] for therapy. Patient having difficulty with meal intake and reports that she is a small eater. Patient resides with spouse/Davey and has supportive son/Noah nearby. Patient currently with therapy evaluation pending to help determine d/c planning needs. Patient also with psychiatric consult with Dr. Perez. Patient agreeable to return home with HH but refuses SNF if recommended. Patient reports that she has plenty of help at home. SPINNING FRAME CHANGER notified patient that CM team will follow up tomorrow 03-09-20 to assist with safe d/c planning. P: Anticipate home with and outpatient psychiatry if recommended? Patient would like to use [facility]. Continue to follow. KASSIDY Valles Discharge Planning/Care Management Advanced directive, confirm from FAMILY Start: 03/07/20 12:40 Freq: Q24H Status: Active Protocol: Document 03/08/20 11:41 (Rec: 03/08/20 11:41 [id number]) Advance Directive, confirm on record Time 11:41 Person contacted patient Copy received No CM Discharge Assessment Start: 03/08/20 16:08 Freq: Status: Active Protocol: Document 03/08/20 16:08 KJS (Rec: 03/08/20 16:12 KJS [id number]) Discharge Planning Assessment Assigned Blaster Helper KASSIDY Valles Contact Information Davey Benavidez (spouse) Advance Directives? Yes Advance Directives on File Yes: gave to ED 4 days ago History Provided By Patient,Medical Record Prior Living Arrangements House Household Members spouse Type of transporation used prior to Relies on Others admit Comment Patient reports that spouse/ Davey and son/Noah take her to/from errands. Independent with ADL's No: Patient reports decline in mobllity Is patient alert and oriented? Yes Needs Assistance With Meal Prep,Home Chores / Shopping Caregiver for Another No DME Already Rented / Owned FWW / Walker Comment Pending needs. Discharge Plan Home with Home Health Transportation Arrangement Family available to provide transport. Additional Comment Pending therapy evaluations. SNF/HH Preference [facility] if HH needed ph# [phone] Whiteboard Updated in Patient Room with Yes name and ext. # of Blaster Helper Review Status In Process Next Review Type Continued Stay Review
[2020-03-08] MEDS: BISACODYL 5 MG TABLET 10 MG PO (17:14)
[2020-03-08] MEDS: MAGNESIUM CITRATE 300 ML SOLUTION 150 ML PO (17:15)
--- NOTE | 2020-03-08 17:29 | PC.NURSE ---
Addendum entered by Qian Skinner R.N. 03/08/20 21:34: Pt resting @ intervals this evening. IVF continue as per orders. Beginning to have results from bowel prep. Relatively uneventful evening. Call light w/in reach, bed alarm on for pt safety. Continue w/plan of care. Original Note: Pt awake, Lungs clear/diminished at bases bilaterally. SpO2 96% RA. Continues w/some old brusing on left arm. Assisted to BSC, voided clear yellow urine. Dr Martin in to see, orders for bowel prep for 03/09 given. Pt drank 150cc mag citrate & two ducolax given as per orders. IVF NS@ 100ccc/hr infusing into the RAC via pump with out incidence. SCD on. Call light w/in reach/ bed alarm on for pt safety.
--- NOTE | 2020-03-08 17:46 | PM.CN ---
History of Present Illness Consult details Date Patient Seen: 03/08/20 Time Patient Seen: 11:02 Chief complaint: Failure to thrive Reason for consult: Need for colonoscopy an EGD Requesting provider: Thai Kendall Narrative: The patient is a woman who has been having issues with intestinal function for long time. She has developed persistent nausea and weight loss and had an abnormal CT scan showing some thickening in her colon. She has had numerous EGD and colonoscopies in the past done elsewhere. Dr. Kendall has asked me to evaluate her and see if she needs additional endoscopic evaluation. She has lost about 10 lb over the last month or 2 according to her . She has lost more than that over the last several months. She feels generally weak. Has some diarrhea and crampy abdominal pain. The only relief she has found is with bentyl. Nothing else seems to work. She has not seen any blood in her stool. Meds Home Medications and Allergies Home Medications Medication Instructions Recorded Confirmed Type Fexofenadine Hydrochloride 180 mg PO Q DAY #0 05/11/06 03/08/20 History (Ada) Metoprolol Succinate (METOPROLOL See Rx Instructions .ROUTE 06/06/13 03/08/20 History XL) .COMPLEX #0 MDD 150 aspirin 81 mg PO QDAY #0 06/06/13 03/08/20 History atorvastatin [Lipitor] 40 mg PO QDAY #0 tab 06/06/13 03/08/20 History duloxetine [Cymbalta] 30 mg PO DAILY #0 ecc 06/06/13 03/08/20 History gabapentin [Neurontin] 300 mg PO TID #0 06/06/13 03/08/20 History montelukast [Singulair] 10 mg PO QDAY #0 tab 06/06/13 03/08/20 History omeprazole 40 mg PO QDAY #0 06/06/13 03/08/20 History trazodone 100 mg PO ONCE HS #0 tab 06/06/13 03/08/20 History Lactobacillus acidophilus 1 tab PO QDAY #0 12/25/16 03/08/20 History alprazolam 0.25 mg PO QHS PRN #0 12/25/16 03/08/20 History acetaminophen 650 mg PO Q4H PRN 03/02/20 03/08/20 History albuterol sulfate [Ventolin HFA] 2 puff INHALATION Q4-6H PRN 03/02/20 03/08/20 History dicyclomine [Bentyl] 10 mg IM PRN PRN 03/02/20 03/08/20 History naproxen sodium [Aleve] 220 mg PO Q12H PRN 03/02/20 03/08/20 History ondansetron HCl [Zofran] 4 mg PO Q4HP PRN 03/02/20 03/08/20 History Sudafed 120 mg PO PRN PRN 03/08/20 03/08/20 History conjugated estrogens [Premarin] 0.625 applic TOPICAL PRN PRN 03/08/20 03/08/20 History dimenhydrinate [Dramamine] 25 mg PO Q4-6H PRN 03/08/20 03/08/20 History escitalopram oxalate 20 mg PO DAILY 03/08/20 03/08/20 History eszopiclone 2 mg PO BEDTIME 03/08/20 03/08/20 History Allergies Allergy/AdvReac Type Severity Reaction Status Date / Time adhesive tape AdvReac Rash Verified 03/07/20 12:05 Review of Systems Review of Systems Narrative: Patient denies pain arise earaches or sore throat. No tooth aches. No trouble swallowing unless her throat is dry. No chronic cough or cold. No heart problems or chest pain. No black or bloody bowel movements. No hematemesis. No appetite. Last EGD and colonoscopy was about 5 years ago. No history kidney stones or blood in her urine. No seizures or blackouts. She does suffer from some psychiatric problems. She is under treatment for those. Exam Vital Signs (past 8 hours): - 03/08/20 11:47 03/08/20 12:56 03/08/20 15:40 Temperature 97.9 F 97.8 F Pulse Rate 81 85 81 Respiratory Rate 18 15 Blood Pressure 154/68 H 167/68 H 143/61 H Pulse Oximetry 99 97 Oxygen Delivery Method Room Air Oxygen Flow Rate 0 Narrative Exam Narrative: Thin, gas sleep pale emaciated looking woman. Cooperative trying to be pleasant. Clearly appears weak. Her eyes are nonicteric. Pupils equal round reactive to light. Conjunctivae are pink. Ears without lesion. Nasal septum is midline. Oral mucosa without open lesion. Tongue is a bit red and dry. I feel no nodes in the neck or supraclavicular areas. Trachea is midline mobile. Thyroid is not enlarged. No masses or tenderness in the neck or thyroid. Her lungs are clear to auscultation without rales or rhonchi. No wheezing appreciated. Equal percussion. Somewhat hyper resonant. Heart regular rate and rhythm without murmur gallop. No bruit in the neck. Abdomen skin on her abdomen is almost the consistency of leather. It is not dark it is just thickened dry. She has no significant abdominal musculature on exam. There is no tenderness no mass liver and spleen are not enlarged. The patient is alert and oriented. Flat affect. Speech rate and content are appropriate. Objective Labs Result Diagrams: 03/08/20 06:55 03/08/20 06:55 Labs: Laboratory Results - last 24 hr 03/08/20 03/08/20 03/08/20 06:55 06:55 06:55 WBC 6.5 D RBC 2.65 L Hgb 10.3 L Hct 30.1 L MCV 113.6 H MCH 38.7 H MCHC 34.1 RDW 20.9 H Plt Count 198 Neut % (Auto) 75.2 H D Lymph % (Auto) 15.6 L [place] % (Auto) 8.0 Eos % (Auto) 1.0 L Baso % (Auto) 0.2 Neut # (Auto) 4900 Lymph # (Auto) 1000 L [place] # (Auto) 500 Eos # (Auto) 100 Baso # (Auto) 0 RBC Morphology Not Reportable Anisocytosis 2+ H Sodium 130 L Potassium 3.2 L Chloride 102 Carbon Dioxide 24 BUN 4 L Creatinine 0.34 L Estimated GFR > 60.0 BUN/Creatinine Ratio 11.8 Glucose 80 Calcium 7.2 L Magnesium 1.1 L Vitamin B12 854 Folate 3.0 Assessment & Plan Assessment & Plan narrative: Patient with various GI symptoms due for a colonoscopy. She has had chronic nausea and vomiting and has been having reflux. Will proceed to an EGD and a colonoscopy. She is not able to tolerate large volumes of fluid so I have adapted her bowel prep somewhat and will check on her in the morning to make sure things are coming out clear will not be able to probably do this before the afternoon. Clear liquids have already been ordered by her primary care provider. I discussed the procedure and rationale with her. Risks of bleeding, infection, failure to find removal lesions in the potential tattoo discussed. Risk of perforation also discussed. She appears to understand wishes to proceed
[2020-03-08] MEDS: ATORVASTATIN 20 MG TABLET 40 MG PO (20:53)
[2020-03-08] MEDS: DULOXETINE 30 MG CAPSULE 60 MG PO (20:53)
[2020-03-08] MEDS: TRAZODONE 50 MG TABLET 100 MG PO (20:53)
[2020-03-09] VITALS (16 sets, daily range): BP systolic 121–159; BP diastolic 39–75; PULSE 79–108; RESP 12–19; TEMP 36.3–36.9; O2SAT 93–100
--- NOTE | 2020-03-09 | PATH_ITS ---
[facility] Accession Number: [id number] . 01 Material submitted: . PART A: gastrointestinal site - PROXIMAL STOMACH BIPOSY PART B: colon - RANDOM COLON BIOPSIES . 02 Diagnosis: A. Proximal Stomach, Biopsy: Body-type mucosa with no diagnostic abnormality. Negative for Helicobacter by immunochemistry. Negative for intestinal metaplasia. Negative for dysplasia and malignancy. . B. Random Colon, Biopsies: Colonic mucosa with no diagnostic abnormality. Negative for active, chronic, and microscopic colitis. Negative for dysplasia and malignancy. . V 03/15/2020 1445 Local . 02 Electronically signed: . Keyla Ulloa MD, Pathologist NPI- [id number] . 01 Gross description: . Part A: PROXIMAL STOMACH BIPOSY: Received in formalin are multiple fragment(s) of alcantar, soft tissue measuring 0.1 x 0.1 x 0.1 cm to 0.4 x 0.2 x 0.2 cm submitted entirely in 1 cassette(s) Part B: RANDOM COLON BIOPSIES: Received in formalin are multiple fragment(s) of alcantar, soft tissue measuring 0.1 x 0.1 x 0.1 cm to 0.2 x 0.2 x 0.2 cm submitted entirely in 1 cassette(s) /JEAN 03/11/2020 1848 Local . 02 Microscopic: . A. An immunohistochemical stain was performed to evaluate for Helicobacter organisms and is negative. . B. A trichrome stain wsa performed to evaluate the subepithelial collagen layer and is normal. Both control stains showed appropriate reactivity. . * This test was developed and its performance characteristics determined by [facility]. It has not been cleared or approved by the U.S. Food and Drug Administration. The FDA has determined that such clearance or approval is not necessary. This test is used for clinical purposes. It should not be regarded as investigational or for research. . 02 Pathologist provided ICD-10: R10.9 . 02 CPT . 143507, 671742, U15116, 771356 Performed at: 01 [facility] [address] [id number] MD Dayton Nation MD Phone: [phone] Performed at: 02 [place] [id number] [place] [address] [id number] MD Keyla Ulloa MD Phone: [phone]
[2020-03-09] MEDS: ONDANSETRON 4 MG/2 ML INJ IV ×2 (05:13→13:30)
[2020-03-09] MEDS: SODIUM CHLORIDE 0.9% FLUSH 10 ML IV (05:13)
[2020-03-09] MEDS: SODIUM CHLORIDE 0.9% 1,000 ML 100 ML IV ×2 (06:49→22:05)
[2020-03-09 07:26] LABS: Add Manual Diff / Slide Review NO; Basophils Absolute Auto 0 /uL (0-100); Basophils Percent Auto 0.7 % (0-2); Eosinophils Absolute Auto 0 /uL (0-450); Eosinophils Percent Auto 1.2 % (2-4); Hematocrit 26.8 % (36-46); Lymphocytes Absolute Auto 800 /uL (1100-4500); Lymphocytes Percent Auto 25.3 % (25-40); Mean Corpuscular HGB Conc 33.7 % (30-36); Mean Corpuscular Hemoglobin 38.7 PG (26-34); Mean Corpuscular Volume 114.7 fL (80-100); Monocytes Absolute Auto 500 /uL (0-900); Monocytes Percent Auto 14.3 % (3-14); Neutrophils Absolute Auto 1800 /uL (1500-7000); Neutrophils Percent Auto 58.5 % (50-75); Platelet Count 182 X10^3/uL (150-400); Red Blood Cell Count 2.34 X10^6/uL (4.0-5.2); Red Cell Distribution Width 21.3 % (11.6-14.8); White Blood Cell Count 3.1 X10^3/uL (4.5-11.0)
[2020-03-09 07:36] LABS: Alanine Aminotransferase 27 IU/L (<35); Albumin 1.9 g/dL (3.5-5.0); Albumin Globulin Ratio 0.7 (1.0-2.8); Alkaline Phosphatase 63 U/L (38-126); Aspartate Aminotransferase 28 IU/L (14-36); BUN Creatinine Ratio 9.4 (6-22); Bilirubin Total 0.3 mg/dL (0.2-1.3); Blood Urea Nitrogen 3 mg/dL (7-17); Calcium 7.3 mg/dL (8.4-10.2); Carbon Dioxide 24 mmol/L (22-32); Chloride 104 mmol/L (98-107); Estimated Glomerular Filt Rate > 60.0 mL/min (>60); Globulin 2.8 g/dL (1.7-4.1); Glucose 93 mg/dL (80-110); HEMOLYSIS < 15 (0-50); Sodium 132 mmol/L (137-145); Total Protein 4.7 g/dL (6.3-8.2)
[2020-03-09 07:40] LABS: Potassium 2.7 mmol/L (3.4-5.1)
[2020-03-09 07:43] LABS: Anisocytosis 2+
[2020-03-09] MEDS: METOCLOPRAMIDE 10 MG/2 ML INJ IV (08:31)
[2020-03-09] MEDS: POTASSIUM CHLORIDE 40 MEQ in SODIUM CHLORIDE 0.9% 500 ML 130 ML IV (08:59)
--- NOTE | 2020-03-09 09:03 | P.PN_ITS ---
Subjective Subjective Date Patient Seen: 03/09/20 Time Patient Seen: 09:03 Interval history: Nauseated this morning. No pain feeling weaker. Having no other changes or complaints. Was prepped yesterday for colonoscopy today. Appreciate surgeon's input. Patient otherwise having no chest pain. No shortness of breath. Has not seen any blood in her stool. Exam Vital Signs (past 8 hours): - 03/09/20 05:33 03/09/20 08:03 Temperature 97.7 F 97.3 F L Pulse Rate 87 79 Respiratory Rate 19 16 Blood Pressure 143/67 H 131/74 Pulse Oximetry 97 100 Oxygen Delivery Method Room Air Oxygen Flow Rate 0 Narrative Exam Narrative: Fatigued pale-appearing female lying in bed in no acute distress. Mucous membranes moist. Neck supple without adenopathy JVD or bruits. Lungs are mostly clear. Maybe some decreased base lung sounds. Heart regular rate and rhythm. Abdomen is soft positive bowel sounds nontender. Extremities without cyanosis clubbing edema. Neurologic exam continues to be nonfocal. Although she has fatigue. Emotionally somewhat flat but quite tired. Inte ractive but no real spark today. Objective Labs Result Diagrams: 03/09/20 07:00 03/09/20 07:00 Labs: Laboratory Results - last 24 hr 03/09/20 03/09/20 07:00 07:00 WBC 3.1 L D RBC 2.34 L Hgb 9.0 L Hct 26.8 L MCV 114.7 H MCH 38.7 H MCHC 33.7 RDW 21.3 H Plt Count 182 Neut % (Auto) 58.5 Lymph % (Auto) 25.3 [place] % (Auto) 14.3 H Eos % (Auto) 1.2 L Baso % (Auto) 0.7 Neut # (Auto) 1800 Lymph # (Auto) 800 L [place] # (Auto) 500 Eos # (Auto) 0 Baso # (Auto) 0 RBC Morphology Not Reportable Anisocytosis 2+ H Sodium 132 L Potassium 2.7 L* Chloride 104 Carbon Dioxide 24 BUN 3 L Creatinine 0.32 L Estimated GFR > 60.0 BUN/Creatinine Ratio 9.4 Glucose 93 Calcium 7.3 L Total Bilirubin 0.3 AST 28 ALT 27 Alkaline Phosphatase 63 Total Protein 4.7 L Albumin 1.9 L Globulin 2.8 Albumin/Globulin Ratio 0.7 L Assessment & Plan Assessment & Plan narrative: Hypokalemia. Probably worsened with bowel prep. IV replacement. Will give p.o. today this morning and recheck later this afternoon. When 1st K rider is done. Probably will need more but will see how things go. Hypo magnesium. Replace yesterday repeat in a.m.. Decrease calcium. Still low. Repeat with 2 g today. Pleural effusions. CT scan did not show any significant lesion. Bilateral pleural effusions. Could be secondary to her poor nutritional status and decreased protein. While she has no cardiac symptoms. She has a history of coronary artery disease. Will obtain echo to make sure she does not have any significant congestive heart failure although were not seeing it clinically. Question is whether not we need to do pleural effusion tap. I would like to see how it goes as we improve things but may need some that is needed to be done down the road. I do not think she is strong enough now to be doing this. Would just add a risk that I do not think we need to do right now but will see what echo shows. Chronic nausea with history of ulcers. EGD today. Anemia. Dropped 4 points. No evidence of bleeding. Probably combination hydration but will need to follow. Any lower will need type and screen. Patient has low but normal iron status B12 and folate are normal. Depending on results may need iron replacement would consider IV Hopefully today will find out if there is any risk secondary to colon or upper GI. Re-evaluate a.m.. Chronic diarrhea. Abnormal CT scan. Colonoscopy today hopefully and will get some answers. Re-evaluate tomorrow. Depression. Appreciate Dr. baxter input. Will continue her current medicine for now. And will adjust as outpatient with him. Failure to thrive. I think this is a multiple causes. We will be ruling out physical causes through this admission and may be related mostly to her depression will have to see what happens. Generalized weakness. Secondary to all of the above. Certainly nothing neurologic. Physical therapy. Patient may need penitentiary placement short stay but is not interested in that right now. Will see how things go. History of coronary artery disease appears stable as far as we can tell. Liver lesion benign but will need to be followed up as outpatient. Severe malnutrition. Will need reporter anchor and hopefully once we get her bowel issues dealt with we can start feeding at a more aggressive rate. Code status. Full. DVT prophylaxis SCDs. Disposition. Patient is not interested in penitentiary placement. Will need at least home health. Will see how we can get her strength. Also be determined by how much we can get figured out and diagnosed during this admission. I do not expect that to happen until Saturday at the earliest but will see how things go. She understands. Questions answered. Quality VTE Deep Vein Thrombosis/Pulmonary Embolism Present on Admission: No
[2020-03-09] MEDS: FLEETS ENEMA 1 EACH PR ×2 (09:48→13:12)
[2020-03-09] MEDS: MONTELUKAST 10 MG TABLET PO (09:48)
[2020-03-09] MEDS: GABAPENTIN 300 MG CAPSULE 900 MG PO ×2 (09:48→21:57)
[2020-03-09] MEDS: METOPROLOL ER 50 MG TABLET PO (09:48)
[2020-03-09] MEDS: POTASSIUM CHLORIDE 20 MEQ TAB 40 MEQ PO (09:49)
[2020-03-09] MEDS: ALBUTEROL 2.5 MG/3 ML NEB (ADULT) INH (11:00)
--- NOTE | 2020-03-09 12:41 | PT-IP ANOTE ---
checked on pt and pt refused PT. stated that she is too exhausted since they have been doing bowel prep on her for colonoscopy procedure this afternoon.
[2020-03-09] MEDS: CALCIUM GLUCONATE 9.3 MEQ in SODIUM CHLORIDE 0.9% 50 ML 140 ML IV (13:12)
--- NOTE | 2020-03-09 13:18 | OT.IPNOTE ---
Hold OT for pt as going to get colonoscopy soon, to check on pt tomorrow for OT eval.
--- NOTE | 2020-03-09 14:12 | PT-IP ANOTE ---
Pt refused PT this pm, stating I am feeling to weak to do anything and need some energy for her procedure in a little while. Pt verbally confirmed importance of mobility for increased strength post education and encouragement. Pt commented we can do more tomorrow.
[2020-03-09 14:29] LABS: COVID19 -Nasal RAPID Negative (Negative)
[2020-03-09] MEDS: MORPHINE 2 MG/ML INJ IV (15:22)
--- NOTE | 2020-03-09 15:25 | PM.PREOP ---
Pre-operative Note COVID-19 COVID-19 status: Negative Result date/Date tested (Pos, Neg/Pending): 03/09/20 Interval Note History & Physical reviewed/Exam performed by Physician: Yes Changes to H&P: No ASA Class (for procedural sedation): III
--- NOTE | 2020-03-09 15:27 | PC.NURSE ---
Addendum entered by Mariaelena Arreola R.N. 03/09/20 19:50: Pt requests assistance to commode. Two staff assist pt to commode for void. Back to bed and positioned onto right side with pillows to support. Room air 97%. Pedal pulses present BL with doppler. Addendum entered by Mariaelena Arreola R.N. 03/09/20 18:36: Pt fully awake and spouse is in room with pt. Pt's oxygen level 99% so trial of room air in progress. Pt denies pain, denies nausea. Sipping water. Diminished breath sounds to left posterior base, clear through all other posterior restrepo. Pt is actively coughing and clearing sputum into kleenex. Addendum entered by Mariaelena Arreola R.N. 03/09/20 17:39: Phone call from Dr. Martin. Telephone order to resume all orders as per pre procedure and pt may have clear liquids with ensure clear. Addendum entered by Mariaelena Arreola R.N. 03/09/20 17:31: Pt returned to room 220. Drowsy, but rousable. Congested cough. Room air 83% and SALVAGE CLERK placed pt on 3L per nc. 02 saturation level per continuous monitor increases to 96%. Pt denies pain. Normal saline infusing to newly started (in PACU) iv left ac. Pt has generalized edema and is pale. Original Note: Pt given 2 mg morphine ivp for complaints of pain in multiple areas; headache, neck pain. To O.R. with RN's x 2. Pt left room 221 alert, awake, conversant and pale.
--- NOTE | 2020-03-09 15:30 | PC.NURSE ---
GI: Nausea off and on all day, some retching this am. To soon for more zofran, called and order received for reglan and same given. Pt reported it was effective. Then this afternoon had nausea again and zofran was given. Pt reports nausea improved. Reporting some pain and order received for morphine and then she decided not to take anything until she went to the OR. Had fleets enema x2, mucous, greenish as well as quite odorous. pt reports she is exhausted after everything she has been through. Off to OR
[2020-03-09 15:39] LABS: HEMOLYSIS < 15 (0-50); Potassium 4.3 mmol/L (3.4-5.1)
[2020-03-09] MEDS: LACTATED RINGERS 1,000 ML 42 ML IV (15:50)
--- NOTE | 2020-03-09 15:51 | SUR.HOLD ---
Received patient from inpatient room. Right antecubital IV site noted to be red, swollen and tender on arrival to Pre-op. Removed existing IV catheter with tip intact. Compression placed with gauze. New IV site placed to left antecubital with one attempt, flushes well, good blood return noted.
--- NOTE | 2020-03-09 15:59 | CM.DANOTE ---
DCP/continued: Reviewed chart. Patient having procedure today. PT/OT both following. OT plans to see tomorrow 03-10-20. Spoke with Dr. Kendall this AM. He is aware that patient is refusing SNF if needed. Patient agreeable to HH with [facility] and [facility]2F signed. Dr. Kendall reports that Dr. Perez at [facility] is agreeable to follow patient as outpatient as well. Patient off floor and spouse not in room at time of visit today. Patient will need f/u for d/c planning needs. It would be beneficial to include spouse in d/c planning and possible caregiver training as well. Recommend checking latest PT/OT recommendations on 03-10-20 for most accurate planning. As noted patient refusing SNF but if recommended may need to revisit with spouse present. P: Pending. Needs f/u for safe d/c planning. Anticipate home with HH through [facility] and outpatient MH with Dr. Perez. All will need to be coordinated prior to d/c. KASSIDY Valles
--- NOTE | 2020-03-09 16:44 | P.OP.ENDO_ITS ---
Operative Date/Time/Diagnoses Date of procedure: 03/09/20 Time of procedure: 16:30 Pre-op diagnosis: Persistent nausea vomiting, anemia macrocytic, abnormal CT suggesting colonic narrowing, failure to thrive. Incredibly weak and felt to be high risk of complication and therefore anesthesiologist was requested to provide deep sedation Post-op diagnosis: same (Probable atrophic gastritis. Biopsies taken. Visually normal appearing but Friable colonic wall without distinct lesion. Random biopsies taken. Internal hemorrhoids without ulceration. External hemorrhoids pick) Procedure & Clinicians Study performed: EGD with cold biopsy. Colonoscopy with cold biopsy. Same procedure as scheduled: Yes Indications: See preop diagnosis Surgeon: Torsten Martin Procedure Notes SCOAP/Timeout: Performed Procedure in detail: The patient had topical anesthetic applied to oropharynx. She was placed in supine position and underwent deep IV sedation directed by the anesthesiologist. A bite block was inserted and the scope was advanced through it into the esophagus. The esophagus was unremarkable. GE junction was noted at 36 cm from the incisors. The stomach insufflated well. There were no ulcerative lesions seen in the body, antrum or at the incisura. Mucosa was bit pale. The pyloric channel was widely patent. The duodenum was unremarkable to the 3rd part. The scope was brought back into the stomach and retroflexed. The proximal stomach appeared to have punctate red lesion suggesting atrophic gastritis. Biopsies were taken.. The scope was straightened and brought out through the esophagus again. No lesions were seen. The scope was removed and the patient tolerated the procedure well. The patient was placed in the left lateral decubitus position and digital exam of the anus performed. The patient was noted to have external hemorrhoids. Scope was inserted advanced through the rectum into the sigmoid descending transverse and ascending colon. The cecum was reached identified by the ileocec al valve and the appendiceal opening. Of note on the way in the sigmoid was somewhat tubular. The mucosa was pale throughout but there was no distinct abnormality. Where the scope brushed against the wall of the colon it seemed to be a little bit friable. The ileocecal valve was cannulated and the terminal ileum was normal in appearance. I began backing the scope out taking random biopsies as I went. No other mucosal lesions were seen. I attempted to retroflex in the rectum but was unsuccessful so came through very slowly and noted internal hemorrhoids without ulceration. Patient tolerated the procedures well Scope withdrawal time: 8 minutes Sedation minutes: 0 (Anesthesiologist provided deep sedation) Findings: colitis (Mild) and gastritis Specimen(s): other (Gastric and colonic biopsies) Complications: none Post-procedure Plan for aftercare: As per primary care providers Follow up: as needed Disposition: PACU
[2020-03-09 16:48] LABS: Folate 3.1 ng/mL (2.76-20.0); Vitamin B12 881 pg/mL (239-931)
--- NOTE | 2020-03-09 17:02 | SUR.PHASEI ---
gisel-care given, new brief, minimal BM on brief. Coughing up pale colored sputum - suctioned prn. Pt states that it started this past weekend. Able to assist in turning herself in the bed. Report called to Sagrario Arreola RN.
--- NOTE | 2020-03-09 17:22 | SUR.PHASEI ---
1711 to room 221, bed down and locked, call light within reach, O2 on at 3LNP. Pt responsive to voice, mostly sleeping. SCDs on by GENERAL COUNSEL. No questions from staff.
[2020-03-09] MEDS: TRAZODONE 50 MG TABLET 100 MG PO (21:56)
[2020-03-09] MEDS: ATORVASTATIN 20 MG TABLET 40 MG PO (21:56)
[2020-03-09] MEDS: DULOXETINE 30 MG CAPSULE 60 MG PO (21:56)
[2020-03-10 02:33] VITALS: BP 146/66; PULSE 105; RESP 16; TEMP 36.2; O2SAT 96
--- NOTE | 2020-03-10 03:41 | PC.NURSE ---
Addendum entered by Debbie Moreau R.N. 03/10/20 06:16: Has only had small amount urine in brief tonight so bladder scan done showing 278cc. Original Note: Patient seen and assessed at 0230. Is alert and oriented. Breath sounds diminished throughout; RA sat 96% and is on continuous oximetry. HRR but tachy at 105 bpm. BP 146/66 which is consistent with previous readings. Denies nausea. BT present and abdomen is soft. Denies dysuria, frequency or urgency; has not yet voided on this shift but previous has been both continent and incontinent. Is not able to turn self due to weakness so is being repositioned q2h. Generalized 2+ edema. Red, abraised areas on bilateral forearms noted. Denies pain. Wearing bilateral calf SCD's. Fall risk score is high and bed alarm is activated.
[2020-03-10] MEDS: PANTOPRAZOLE 40 MG TABLET PO (05:56)
[2020-03-10 07:34] LABS: Add Manual Diff / Slide Review NO; Basophils Absolute Auto 0 /uL (0-100); Basophils Percent Auto 1.1 % (0-2); Eosinophils Absolute Auto 100 /uL (0-450); Eosinophils Percent Auto 2.5 % (2-4); Hematocrit 26.3 % (36-46); Hemoglobin 8.8 g/dL (12.0-16.0); Lymphocytes Absolute Auto 800 /uL (1100-4500); Mean Corpuscular HGB Conc 33.6 % (30-36); Mean Corpuscular Hemoglobin 38.7 PG (26-34); Mean Corpuscular Volume 115.3 fL (80-100); Monocytes Absolute Auto 500 /uL (0-900); Monocytes Percent Auto 13.5 % (3-14); Neutrophils Absolute Auto 2200 /uL (1500-7000); Neutrophils Percent Auto 60.9 % (50-75); Platelet Count 191 X10^3/uL (150-400); Red Blood Cell Count 2.28 X10^6/uL (4.0-5.2); Red Cell Distribution Width 21.5 % (11.6-14.8); White Blood Cell Count 3.6 X10^3/uL (4.5-11.0)
[2020-03-10 07:44] LABS: Alanine Aminotransferase 28 IU/L (<35); Albumin 1.9 g/dL (3.5-5.0); Albumin Globulin Ratio 0.6 (1.0-2.8); Alkaline Phosphatase 62 U/L (38-126); Aspartate Aminotransferase 29 IU/L (14-36); Bilirubin Total 0.3 mg/dL (0.2-1.3); Calcium 7.6 mg/dL (8.4-10.2); Carbon Dioxide 21 mmol/L (22-32); Chloride 108 mmol/L (98-107); Estimated Glomerular Filt Rate > 60.0 mL/min (>60); Glucose 85 mg/dL (80-110); HEMOLYSIS < 15 (0-50); Potassium 3.6 mmol/L (3.4-5.1); Sodium 134 mmol/L (137-145); Total Protein 4.9 g/dL (6.3-8.2)
[2020-03-10 07:45] LABS: BUN Creatinine Ratio 6.7 (6-22); Blood Urea Nitrogen < 2 mg/dL (7-17); Magnesium 1.6 mg/dL (1.6-2.3)
[2020-03-10 07:50] VITALS: BP 163/71; PULSE 96; RESP 18; TEMP 36.7; O2SAT 96
[2020-03-10 08:28] LABS: Anisocytosis 2+; Macrocytosis 3+
[2020-03-10] MEDS: METOPROLOL ER 50 MG TABLET PO (08:30)
[2020-03-10] MEDS: GABAPENTIN 300 MG CAPSULE 900 MG PO ×3 (08:30→21:11)
[2020-03-10] MEDS: MONTELUKAST 10 MG TABLET PO (08:31)
[2020-03-10] MEDS: POTASSIUM CHLORIDE 20 MEQ TAB 40 MEQ PO (08:31)
[2020-03-10] MEDS: SODIUM CHLORIDE 0.9% 1,000 ML 100 ML IV (08:46)
--- NOTE | 2020-03-10 09:01 | DI.ECHO.S_ITS ---
[place] [facility]---------+ [facility] +---------+ : : [address] : : : : [id number] : : : : Phone: [phone]+ Echocardiogram Report + + :Name: SEBAS BRENNER Study Date: 03/10/2020 Height: 60 in : :[facility] Weight: 91 lb : : Gender: Female BSA: 1.3 m2 : :: 1945 Age: 74 yrs BP: 139/63 mmHg: :Reason For Study: bilateral plueral effuisons, history of CAD : :Ordering Physician: Martha : :Hospitalist Performed By: Koki Wesley : :Referring: NOREEN ADAME : + + Interpretation Summary The left ventricular cavity is small; although this may be normal given small body habitus. The left ventricular ejection fraction is normal. There are no focal wall motion abnormalities. The right ventricle is normal in size and function. The right ventricular systolic pressure is estimated to be at least 40 mmHg based on an estimated right atrial pressure of 3 mm Hg. There is mild aortic regurgitation. There is moderate mitral regurgitation. There is a moderately large right-sided pleural effusion. -The prior echo was not available for direct comparison. -However, comparing to the report of the prior echocardiogram, the anterior wall motion abnormality has resolved and LVEF has normalized. Procedure: A two-dimensional transthoracic echocardiogram with color flow and Doppler was performed. The study quality was technically adequate. Comparison is made with the echocardiogram of 06/07/2013. The patient was in sinus rhythm with heart rates between 85-90 bpm during the exam. Left Ventricle: The left ventricular cavity is small. There is normal left ventricular wall thickness. The ejection fraction is estimated to be 60-65%. The left ventricular ejection fraction is normal. There are no focal wall motion abnormalities. Diastolic parameters suggest a relaxation abnormality of the left ventricle, consistent with probable normal filling pressures. Right Ventricle: The right ventricle is normal in size and function. Atria: The left atrium is mildly dilated. Right atrial size is normal. There is no Doppler evidence for an interatrial shunt. Mitral Valve: The mitral valve leaflets appear mildly thickened, but open well. There is moderate mitral regurgitation. Aortic Valve: The aortic valve is trileaflet. The aortic valve opens well. There is no aortic valve stenosis. There is mild aortic regurgitation. Tricuspid Valve: The tricuspid valve leaflets are thin and pliable. There is moderate tricuspid regurgitation. The right ventricular systolic pressure is estimated to be at least 40 mmHg based on an estimated right atrial pressure of 3 mm Hg. Pulmonic Valve: The pulmonic valve is not well visualized. There is no pulmonic valvular regurgitation. Great Vessels: The aortic root is normal size. The ascending aorta could not be visualized. The IVC is of normal diameter and collapses greater than 50% with a sniff. This suggests a low right atrial pressure of 3 mm Hg. Pericardium/ Pleura There is a trace pericardial effusion that is circumferential. There is a moderately large right-sided pleural effusion. MMode/2D Measurements & Calculations LVIDd: 3.5 cm LVOT diam: 1.9 cm LVIDs: 2.5 cm Ao root diam: 2.7 cm FS: 28.1 % Ao Arch Diam (Prox Trans): 2.1 cm EPSS: 0.45 cm IVSd: 0.70 cm LVPWd: 0.75 cm LV fang. diameter/BSA (cm/m^2): 2.6 LV sys. diameter/BSA (cm/m^2): 1.9 LA A2 area: 19.1 cm2 RA long axis: 4.0 cm LA A4 area: 16.9 cm2 RA area: 12.6 cm2 LA length (vol): 5.0 cm RA vol: 34.1 ml LA vol: 54.8 ml RA : 25.5 ml/m2 LA vol index: 41.0 ml/m2 IVC diam: 1.0 cm RVD1 (basal): 2.7 cm LVAd ap4: 20.1 cm2 TAPSE: 1.9 cm LVAs ap4: 12.4 cm2 LVLs ap4: 5.3 cm Doppler Measurements & Calculations Ao V2 max: 141.7 cm/sec LVOT Max Benitez: 91.9 cm/sec Ao V2 mean: 90.3 cm/sec LV V1 max P.4 mmHg Ao max P.0 mmHg LV V1 VTI: 20.5 cm Ao mean P.7 mmHg PREET(I,D): 2.0 cm2 Ao V2 VTI: 28.1 cm PREET(V,D): 1.8 cm2 sev ratio: 0.73 PREET indexed to BSA (cm^2/m^2): 1.5 MV E max benitez: 108.4 cm/sec TR max benitez: 301.8 cm/sec MV A max benitez: 136.0 cm/sec TR max P.5 mmHg MV E/A: 0.80 PA V2 max: 63.6 cm/sec Med Peak E' Benitez: 7.3 cm/sec PA V2 mean: 47.1 cm/sec E/E' med: 14.9 PA mean P.98 mmHg Lat Peak E' Benitez: 5.3 cm/sec PA pr(Accel): 36.2 mmHg E/E' lat: 20.3 E/e' average: 17.6 MV dec time: 0.16 sec SV(LVOT): 55.9 ml Electronically signed by: Milton Meza M.D. on Reading Physician:03/10/2020 08:15 PM
--- NOTE | 2020-03-10 09:57 | PM.PN.1 ---
Subjective Subjective Date Patient Seen: 03/10/20 Time Patient Seen: 09:57 Interval history: Patient is feeling tired this morning. I just want to rest. Denies pain. Appetite has been poor, no nausea or vomiting. Has been ambulating up to the commode. Nursing has no overnight concerns. Exam Vital Signs (past 8 hours): - 03/10/20 02:33 03/10/20 07:50 Temperature 97.1 F L 98.1 F Pulse Rate 105 H 96 H Respiratory Rate 16 18 Blood Pressure 146/66 H 163/71 H Pulse Oximetry 96 96 Oxygen Delivery Method Room Air Oxygen Flow Rate 0 Narrative Exam Narrative: GENERAL: Alert and oriented, appearing fraild and older than stated age and in no acute distress. HEENT: Head normocephalic/atraumatic. Pupils equal, round, and reactive to light and accomodation. Extraocular muscles intact. Nasal mucosa moist, septum midline. Oral mucosa moist, no lesions. Neck soft and supple, no lymphadenopathy. LUNGS: Clear to ausculation bilaterally, no wheezes, rhonchi or rales. CV: Normal S1 and S2 with regular rate and rhythm, no audible murmurs, rubs or gallops. ABDOMEN: Soft, non-tender, non-distended, no organomegaly. Positive bowel sounds. EXTREMITIES: No clubbing, cyanosis, or edema. NEURO: Cranial nerves II through XII grossly intact, no focal deficits. PSYCH: Alert and oriented x 3. SKIN: Pale, no concerning lesions. Objective Labs Result Diagrams: 03/10/20 07:20 03/10/20 07:20 Labs: Laboratory Results - last 24 hr 03/09/20 03/09/20 03/09/20 13:12 15:20 15:20 WBC RBC Hgb Hct MCV MCH MCHC RDW Plt Count Neut % (Auto) Lymph % (Auto) [place] % (Auto) Eos % (Auto) Baso % (Auto) Neut # (Auto) Lymph # (Auto) [place] # (Auto) Eos # (Auto) Baso # (Auto) RBC Morphology Anisocytosis Macrocytosis Sodium Potassium 4.3 D Chloride Carbon Dioxide BUN Creatinine Estimated GFR BUN/Creatinine Ratio Glucose Calcium Magnesium Total Bilirubin AST ALT Alkaline Phosphatase Total Protein Albumin Globulin Albumin/Globulin Ratio Vitamin B12 881 Folate 3.1 COVID-19 PCR Negative 03/10/20 03/10/2020 07:20 07:20 07:20 WBC 3.6 L RBC 2.28 L Hgb 8.8 L Hct 26.3 L MCV 115.3 H MCH 38.7 H MCHC 33.6 RDW 21.5 H Plt Count 191 Neut % (Auto) 60.9 Lymph % (Auto) 22.0 L [place] % (Auto) 13.5 Eos % (Auto) 2.5 Baso % (Auto) 1.1 Neut # (Auto) 2200 Lymph # (Auto) 800 L [place] # (Auto) 500 Eos # (Auto) 100 Baso # (Auto) 0 RBC Morphology See below Anisocytosis 2+ H Macrocytosis 3+ H Sodium 134 L Potassium 3.6 Chloride 108 H Carbon Dioxide 21 L BUN < 2 L Creatinine 0.30 L Estimated GFR > 60.0 BUN/Creatinine Ratio 6.7 Glucose 85 Calcium 7.6 L Magnesium 1.6 Total Bilirubin 0.3 AST 29 ALT 28 Alkaline Phosphatase 62 Total Protein 4.9 L Albumin 1.9 L Globulin 3.0 Albumin/Globulin Ratio 0.6 L Vitamin B12 Folate COVID-19 PCR Assessment & Plan Assessment & Plan narrative: 1. Hypokalemia. Normalized, will trend labs in am. 2. Hypomagnesemia. Normalized, will trend labs in a.m. 3. Hypocalcemia. Still low. Repeat with 2 g today. 4. Pleural effusions. CT scan did not show any significant lesion. Bilateral pleural effusions. Could be secondary to her poor nutritional status and decreased protein. Echo is pending, will follow closely. 5. Chronic nausea with history of ulcers. EGD showed likely gastritis, pathology pending. Will continue Protonix. 6. Anemia, megaloblastic with leukopenia. H/H slightly lower but stable this morning. EGD/colonoscopy reassuring. 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 Vitamin B12 and folate or normal. With her level of MCV and associated leukopenia, need to rule out a bone marrow problem such as myelodysplasia. Her anemia is especially concerning in light of her weight loss and protein deficiency. Will consult hematology. 7. Chronic diarrhea. Abnormal CT scan with colitis and liver lesions. Colonoscopy showed friable colonic mucosa, biopsies pending. Possibly related to larger systemic disease. Will continue to follow pathology and treat as appropriate. May benefit from budesonide course. 8. Depression. Dr. Perez has consulted, will proceed per his recommendations. 9. Failure to thrive. Possibly multifactorial, currently ruling out various etiologies. Concern for malignancy. Please see above. 10. Generalized weakness. Secondary to all of the above. Continue physical therapy. Likely need for home health upon discharge. 11. History of coronary artery disease, appears stable. 12. Liver cysts, appears to be benign, will need to be followed up as outpatient. 13. Severe malnutrition. Nutrition consulting, will start to advance diet as tolerated. Code status. Full. DVT prophylaxis SCDs. Quality VTE Deep Vein Thrombosis/Pulmonary Embolism Present on Admission: No
[2020-03-10] MEDS: CALCIUM GLUCONATE 9.3 MEQ in SODIUM CHLORIDE 0.9% 50 ML 140 ML IV (10:18)
[2020-03-10] MEDS: ALBUTEROL 2.5 MG/3 ML NEB (ADULT) INH ×2 (10:38→21:20)
[2020-03-10 10:39] VITALS: PULSE 87; RESP 16; O2SAT 98
--- NOTE | 2020-03-10 12:01 | PT.IPTN ---
Current Diagnoses Failure to thrive (child) (03/07/20) Surgery Performed Operation Date: 03/09/20 15:45 Actual Procedures p Esophagogastroduodenoscopy WITH BIOPSY(Not Applicable) - Torsten Martin MD s Colonoscopy WITH BIOPSY(Not Applicable) - Torsten Martin MD Physical Therapy Treatment Note M2 PT-IP Current Condition Start: 03/08/20 16:50 Freq: NEEDED Status: Active Protocol: Document 03/08/20 13:30 AB (Rec: 03/08/20 17:24 AB [id number]) Physical Therapy Current Condition Current Condition Evaluation Date 03/08/20 Treatment Diagnosis failure to thrive; difficulty in walking Onset Date 03/07/20 M3 PT-IP Subjective Start: 03/08/20 16:50 Freq: NEEDED Status: Active Protocol: Document 03/10/20 10:45 SP (Rec: 03/10/20 13:34 SP [id number]) Subjective Physical Therapy Visit Type Type Treatment Note Visit Start Time 10:45 Visit Stop Time 12:01 Total Visit Minutes 74 Notes Cotreatment with OT, caregiver training with . Number of PERSONAL LINES INSURANCE AGENT Visits 1 Physical Therapy Visit Comments Patient Comments Pt willing to work with therapy and work on caregiver training. I am very weak but will do what I can with my . Therapy Pain Assessment Pain Present Pain Present Denied Pain M4 PT-IP Mobility and Gait Start: 03/08/20 16:50 Freq: NEEDED Status: Active Protocol: Document 03/10/20 10:45 SP (Rec: 03/10/20 13:34 SP [id number]) PT-Bed Mobility Assessment Rolling Type of Rolling Bilateral Level of Assist Moderate Assistance,1 Person Assistance Supine to Sit Supine to Sit Maximum Assistance,1 Person Assistance,Head of Bed Elevated,Bedrails Sit to Supine Sit to Supine Maximum Assistance,1 Person Assistance,Bedrails Scooting Scooting to Edge of Bed Moderate Assistance PT-Transfer Assessment Sit to and From Stand Sit to and from Stand Standby Assistance,Minimal Assistance,Moderate Assistance ,1 Person Assistance,Use of Upper Extremities Equipment Transfer Assistive Device Gait Belt,Front Wheeled Walker Orthotic/Prosthetic Devices or Brace: No Transfers Transfer Destination Bed,Chair,Wheelchair Transfer Technique Stand Step Pivot Transfer Ability Level of Assist Minimal Assistance,Moderate Assistance,1 Person Assistance ,Use of Upper Extremities Comments Mobility Comments Pt had increased edema L>R hands and B LEs. stated hands is new. Pt was elevated supine when arrived with in room. PT/OT cotreatment including caregiver trainining and provided patient assist required. Supine <> sitting Max A of 1 doing a scoop pivot by with support at upper back and under legs, Mod A to scoot forward to EOB using bed pad as needed and BUE self support on bed. Pt able to sit EOB CGA, sit <> stand from EOB Mod-Min A of 1 initially and step pivot transfer to R onto commode Max cuing for safety proper hand placement. Pt required increased time throughout treatment for rest recovery secondary to decreased strength and activity tolerance. Pt required sitting support while on commode from OT due tiring and unableto support self. Sit to stand from bed side commode Min A x1 by using FWW then ambulated around bed to sit in chair CGA-Min A and cuing for pivoting and backing up to chair using fWW, Min A to descent in to chair with cue BUE reaaching back. Pt willing to assess stair mgt, required increase time seated rest. Pt ambulated chair to w/c then therapist wheeling her down to stairs. Pt required Mod A of 2 persons for trunk assist ascending/descending with RHR and SUPERVISOR [employer]IST[employer] at LUE and 3rd person to Min A reposition R LE ascend positioning step to gait. Pt required mod A of 2 person to descend and therapist positioning their LE in front LLE to decrease risk of buckling secondary to unsteady while descending RLE. Pt declined further walking. Completed step pivot transfer w/c> bed using FWW Max A of 1 person, sitting >supine scoop pivot assisted by back to bed. Pt and realize patient is very weak and unable to complete 12-14 ( 7 stairs each flight wtih 2 flights and landing between) stairs has at home at this time. Considering installing chair lift one or both flights . Patient and family are addiment that wanting to go home. Therapy recommending BLS transportation, stretcher assist to get into home, 24/7 assist, home health PT, and son to asssit but maybe consider additional caregivers for support. Pt requires continued acute PT at this time to increase strength and functional mobility. Pt required encouragement for participation to tolerance. Gait Assessment Gait Gait Assistance Required: Minimum Assistance,1 Person Assist Distance (Feet) 15 Able to Maintain Weight Bearing Status Yes During Gait Assistive Devices Assistive Device Gait Belt,Front Wheeled Walker Orthotic/Prosthetic Devices or Brace: No Gait Deviations General Gait Pattern Antalgic,Decreased Stride Length,Decreased Feet Clearance,Flexed Trunk,Narrow Based Gait Factors Limiting Gait Function Factors Limiting Gait Function Decreased Activity Tolerance, Decreased Strength,Poor Balance,Poor Safety Awareness Comments Gait Comments See mobility comments. Stair Climbing Assessment Evaluation Level of Assist On Stairs Moderate Assistance,2 Person Assistance Devices Stair Climbing Assistive Devices Right Railing Technique/Endurance Stair Climbing Direction Ascend and Descend Stair Climbing Technique Step to Step Number of Steps Climbed 3 Stair Climbing Set # Repetitions (reps) 1 Comments Stair Climbing Comments See mobility comments. PT-Balance Assessment Sitting Balance and Reactions Static Sitting Balance Ability Poor Dynamic Sitting Balance Ability Poor Standing Balance and Reactions Static Standing Balance Ability Poor Dynamic Standing Balance Ability Poor Device Used FWW M5 PT-IP Objective Assessments Start: 03/08/20 16:50 Freq: NEEDED Status: Active Protocol: Document 03/08/20 13:30 AB (Rec: 03/08/20 17:24 AB [id number]) Orientation Orientation/Cognition Level of Alertness Alert Orientation Name Safety Awareness Decreased Safety Awareness Memory Description Short Term Impaired Gross Range of Motion Lower Extremity ROM Assessment Within Functional Limits Strength Lower Extremity Strength Assessment Bilaterally Impaired Hip 3+/5 Knee 3+/5 Coordination Assessment Gross Coordination Gross Coordination WNL Sensation Assessment Sensation Gross Sensation WNL Muscle Tone Muscle Tone WNL Yes M6 PT-IP Treatment Start: 03/08/20 16:50 Freq: NEEDED Status: Active Protocol: Document 03/10/20 10:45 SP (Rec: 03/10/20 13:34 SP [id number]) Physical Therapy Treatment Education Education Provided Safety M7 PT-IP Assessment and Plan Start: 03/08/20 16:50 Freq: NEEDED Status: Active Protocol: Document 03/10/20 10:45 SP (Rec: 03/10/20 13:34 SP [id number]) PT Summary Assessment and Plan Potential Rehabilitation Potential Fair Status of Condition at Evaluation Evolving Summary Impairments Pain,ROM,Strength,Balance, Coordination,Sensation,Tone, Cognition,Bed Mobility, Transfers,Gait,Activity Tolerance Assessment Summary pt requiring 1 person max A with mobility using FWW, Mod A of 2-3 persons on limited stairs, unable to complete 12- 14 stairs has as at home and has decrease activity tolerance requiring encouragement to participate and increase multiple rest time for recovery . pt will require SNF rehab to improve strength and mobility or 24/7 assist of /son with home health PT and possibly caregiver assist support. Goals Bed Mobility Goal Contact Guard Assistance Transfer Goal Contact Guard Assistance,Front Wheeled Walker Gait Goal Contact Guard Assistance,Front Wheel Walker Gait Distance 50 Other Goals up/down 12 steps 1 rail CGA Days to Meet Goals 10 Frequency of Treatment Frequency Of Treatment Once a Day Treatment Plan Physical Therapy Treatment Plan Bed Mobility Training,Transfer Training,Gait Training, Therapeutic Exercise,Balance Retraining,Discharge Planning, Neuromuscular Re-ed, Coordination Retraining Recommendations To Nursing Amount of Assist Needed 1 Person Assist Discharge Recommendations PT Discharge Recommendations Home with 24/7 Assist,Home Health,SNF Rehab Transportation Needs at Discharge Wheelchair/Cabulance,Stretcher /Ambulance
--- NOTE | 2020-03-10 12:01 | OT.IP.EVAL ---
Current Diagnoses Failure to thrive (child) (03/07/20) Surgery Performed Operation Date: 03/09/20 15:45 Actual Procedures p Esophagogastroduodenoscopy WITH BIOPSY(Not Applicable) - Torsten Martin MD s Colonoscopy WITH BIOPSY(Not Applicable) - Torsten Martin MD Past Medical History (Last Updated 03/08/20 @ 17:50 by Torsten Martin MD) Acid reflux disease (Acute) Irritable bowel (Acute) Surgical History (Last Updated 03/08/20 @ 17:50 by Torsten Martin MD) H/O hysterectomy for benign disease (Acute) History of appendectomy (Acute) Occupational Therapy Inpatient Evaluation/Re-Eval M1 PT/OT-IP Prior Functional Status Start: 03/10/20 14:32 Freq: NEEDED Status: Active Protocol: Document 03/10/20 14:32 [facility] (Rec: 03/10/20 14:57 [facility] [id number]) Medical Review Prior Functional Status Medical History Reviewed Yes Communication able to make needs known Mobility and Gait pt stated that she is able to walk to the toilet using 4WW but has not been walking or moving much and just stays in bed or sitting on her recliner . spouse stated that pt has been declining in function since last june but due to the pandemic did not go to the hospital Activities of Daily Living and IADL's Pt's states has had to assist for all ADl's at this time as pt has been very weak . Social History Household Members spouse,children Living Arrangements House Number of Floors (Floors) 3 or More Floors Number of Stairs To Enter/Railing? has no step to get into the house but has 1 flight of steps with R rail to living area and another flight of steps with L rail to bedroom level Home Environment Standard Height Toilet,Walk in Shower Home Equipment Four Wheel Walker,Bedside Commode,Shower Seat without Backrest,Hand Held Shower,Grab Bars In Shower Additional Social History Comment stated that she has an adjustable bed with L rail M2 OT-IP Current Condition Start: 03/10/20 14:32 Freq: Status: Active Protocol: Document 03/10/20 14:32 [facility] (Rec: 03/10/20 14:57 [facility] [id number]) Occupational Therapy Current Condition Current Condition Evaluation Date 03/10/20 Treatment Diagnosis Hypokalemia, hyponatremia, decreased self care and mobility Diagnosis Onset Date 03/07/20 Weight Bearing Status Weight Bearing Status Weight Bear as Tolerated M3 OT- IP Subjective and Pain Start: 03/10/20 14:32 Freq: Status: Active Protocol: Document 03/10/20 14:32 [facility] (Rec: 03/10/20 14:57 [facility] [id number]) OT- Subjective Occupational Therapy Visit Type Type Initial Evaluation Visit Start Time 10:45 Visit Stop Time 12:02 Total Visit Minutes 76 Occupational Therapy Visit Comments Patient Comments Pt's present for caregiver training in addition to OTOLARYNGOLOGY SURGEON. Patient/Caregiver Goals To go home. OT Pain Assessment Pain When Pain Assessed At Rest Pain Present Pain Present Denied Pain M4 OT- IP ADL's Start: 03/10/20 14:32 Freq: Status: Active Protocol: Document 03/10/20 14:32 [facility] (Rec: 03/10/20 14:57 [facility] [id number]) OT ORY-Fcde-Pygxolf Comments OT Self-Feeding Comments Pt having poor appetite OT ADL-Grooming General Evaluation Grooming Ability Moderate Assistance Areas Needing Assistance Combing/Brushing Hair Comments OT Grooming Comments Pt having difficulty to brush her hand due to hands swollen and IV limiting her use of RUE . OT ADL-Dressing General Eval Lower Body Dressing Ability Maximum Assistance Areas Needing Assistance Socks OT ADL-Toileting Comments OT Toileting Comments Pt not having to go but would need MAX A for hygiene and for clothing management need. OT ADL-Bathing Comments OT Bathing Comments Not at this time, to attempt tomorrow. M5 OT- IP IADL's Start: 03/10/20 14:32 Freq: Status: Active Protocol: Document 03/10/20 14:32 [facility] (Rec: 03/10/20 14:57 [facility] [id number]) OT-Instrumental Activities of Daily Living Deficits IADL Deficits Identified Deficits Medication Management Medication Management Caregiver Administers Money Management Money Management Caregiver Provides Assistance Meal Preparation Meal Preparation Caregiver Provides Assist Grading Machine Operator Grading Machine Operator Caregiver Provides Assist Driving Driving Caregiver Provides Assist M6 OT- IP Functional Cognition Start: 03/10/20 14:32 Freq: Status: Active Protocol: Document 03/10/20 14:32 [facility] (Rec: 03/10/20 14:57 [facility] [id number]) Cognitive Factors Limiting Selfcare Function Cognitive Ability Level of Alertness Alert Patient Orientation Name,Place,Situation Attention Span Ability Capable of Focused Attention, Capable of Sustained Attention Ability to Follow Commands Able to Follow One Step Commands Memory Description Short Term Impaired Safety Awareness Underestimates Need for Assistance Cognitive Comments Cognitive Assessment Comments Pt needing concrete simple commands to follow. Pt also needing increased time to follow commands at this time. OT- Vision and Hearing OT- Hearing Assessment OT- Hearing Assessment WFL M7 OT- IP Mobility and Balance Start: 03/10/20 14:32 Freq: Status: Active Protocol: Document 03/10/20 14:32 [facility] (Rec: 03/10/20 14:57 [facility] [id number]) OT- Bed Mobility Assessment Rolling Type of Rolling Roll to Left Level of Assistance Moderate Assistance Supine to Sit Supine to Sit Assist Maximum Assistance,1 Person Assistance Sit to Supine Sit to Supine Assist Maximum Assistance,1 Person Assistance OT-Transfer Assessment Sit to and From Stand Sit to and from Stand Moderate Assistance,1 Person Assistance Transfers Transfer Ability Moderate Assistance,1 Person Assistance Technique Transfer Destination Bed,Chair,Wheelchair Transfer Technique Stand Step Pivot Devices Transfer Assistive Devices Gait Belt,Front Wheeled Walker Comments Mobility Comments Pt able to get pt out of the bed with MAXAx1, however encouraged pt to assist more as is capable of doing more. Pt needing from CGA to MODA to stand pending height of surface sitting from to stand to FWW. CONSUELO to MODA for transfer with FWW. As pt tires, pt needing more assist. Pt's tends to want to lift the pt up versus having pt try to assist with her hands to push up from the Bed/recliner. Attempted steps at at this time needing MODA X2, hand rails and additional 3rd person to help bend her right knee and lift her right leg up to the step, in addition on the way down the step to block her left knee from buckling. At this time would be best to have ambulance or fire department get her into the house if family still insistent on bringing her home. OT- Balance Assessment Sitting Balance and Reactions Static Sitting Balance Ability Fair Dynamic Sitting Balance Ability Poor Standing Balance and Reactions Static Standing Balance Ability Poor Dynamic Standing Balance Ability Poor M8 OT- IP Objective Assessments Start: 03/10/20 14:32 Freq: Status: Active Protocol: Document 03/10/20 14:32 [facility] (Rec: 03/10/20 14:57 [facility] [id number]) OT Gross Range of Motion Upper Extremity Range of Motion Assessment Bilaterally Impaired OT Strength Comments Strength Comments Decreased for MARV, pt having difficulty to use her hands due to swelling in her hands l>R. Encouraged pt to do active hand squeezes and keep her arms elevated if possible. OT- Coordination Assessment Comments Coordination Comments Decreased coordination due to her swelling in her hands. M9 OT- IP Assessment and Plan Start: 03/10/20 14:32 Freq: Status: Active Protocol: Document 03/10/20 14:32 [facility] (Rec: 03/10/20 14:57 [facility] [id number]) OT Summary Assessment and Plan Potential Rehabilitation Potential Fair Analytic Complexity at Evaluation Moderate Summary OT Impairments Range of Motion,Strength, Balance,Coordination, Functional Cognition, Functional Mobility,Self- Feeding,Grooming,Dressing, Toileting,Bathing,Toilet Transfers,Shower Transfers, Activity Tolerance Progress Towards Goals Slow Progress due to Medical Issues,Slow Progress due to Activity Tolerance,Slow Progress due to Cognition Assessment Summary Pt mod complexity due to significant medical issues, now needing extensive assist for ALd and mobility needs, steps to get into the house, decreased balance and activity tolerance and would benefit from skilled rehab but family and pt refusing and insisting on taking pt home. Pt's has initiated caregiver training and already looking into possible equipment needs if pt's status progresses- spoke or sit to stander lift, luis manuel lift, rolling shower chair, wc,etc.. . At this time pt was able to walk around the bed with one person assist. Therefore since family is refusing SNF, recommend home with 24/7 assist mainly for waking hours and home health. Pt's looking to hire caregivers to assist as well. Goals Self-Feeding Goal Standby Assistance Grooming Goal Standby Assistance Dressing Goal Moderate Assistance Toileting Goal Moderate Assistance Bathing Goal Moderate Assistance Toilet Transfer Goal Contact Guard Assistance Shower Transfer Goal Minimal Assistance Patient/Caregiver Education Goal Caregiver Independent Assisting Patient Days to Meet Goals 7 Frequency of Treatment Frequency Of Treatment Once a Day Treatment Plan OT Treatment Plan ADL Training,Functional Cognition Training,Functional Mobility,Patient/Family Education,Discharge Planning Other Treatment Recommendations and Next Shower Treatment Focus Discharge Recommendations OT Discharge Recommendations Home with 24/7 Assist,Home Health,SNF Rehab Home Equipment Needs FWW, WC, shower chair with back Transportation Needs at Discharge Private Vehicle,Stretcher/ Ambulance
[2020-03-10] MEDS: ESCITALOPRAM 10 MG TABLET 20 MG PO (13:37)
--- NOTE | 2020-03-10 14:44 | DIET.PN ---
Dietary Progress Note RD f/u as pt advanced to general diet. Pt visually edematous in face, hands, arms. Discussed with patient role of protein in holding fluid in vessels. Together we generated a list of high protein foods patient enjoys and is willing to eat. This RD will type up list for d/c packet so pt and spouse can hang on refrigerator for meal planning guide. Acceptable Items include: Eggs-scrambled, fried, poached Chicken thighs Steak Fish-salmon, whitefish, shrimp, crab Nuts-almonds, pistachios, pumpkin seeds, almond butter Dairy-sharp cheddar, havarti, yogurt, cottage cheese ONS-Ricardo, Glucerna, Ensure Enlive Pt cannot tolerate beans or walnuts. Home goal plan is to consume three high protein meals per day, if pt cannot consume a meal, it can be replaced with an ONS Ensure Enlive (350kcal, 20g PRO). HT: 154.9cm WT: 42.9kg (+2.4kg since admit, pt 2+ edema) UBW: 47kg (85% of [place] Body Weight) BMI: 17.9 Labs: Na 130 L, K+ 3.2 L MNA: 2 malnourished George: 15 high risk for skin breakdown Nutrition Diagnosis: Severe Acute on Chronic PCM r/t low appetite and also fear of IBS sx (diarrhea) aeb unintentional weight loss 15% in 6 mo and 6.5% in 1 w, pt consuming <50% EERs in >1mo, BMI 16.9 (severe), chronic cramping diarrhea secondary to IBS, severe muscle and fat wasting throughout c accompanying weakness. Interventions: 1. Pt to receive half portions of general diet order while in hospital c ONS Ricardo or Enlive. 2. Recc starting calorie and PRO count for 3d or until discharge, whichever is shorter to ensure pt is able to meet EERs as BMI is severe for age and pt expressing low appetite still. Diet Order: General EER: 1400 kcal (+350kcal for weight gain), 55g PRO (1.3g/kg per malnutrition) Monitoring/Evaluations: ONS tolerance, POs
--- NOTE | 2020-03-10 15:37 | CM.DPNOTE ---
DCP Cont Met w/patient and her Eric. Reviewed physical therapy rec-SNF. Patient/spouse understand the recommendation d/t patient's current physical limitations but continue to plan for DC home w/[facility]. Patient and spouse explain that w/assist from their son (who lives down stairs), and visits from [facility] they can get home and then aggressively seek assist from privately paid caregivers. Spouse already has lists of private paid cgs and agency cgs and plans to begin making calls, arranging interviews etc., spouse does not feel he needs a cg in place in order to bring patient back home. Asked patient about f/u w/ Dr Perez once DC and spouse responded quickly that patient needs this greatly and patient agreed. Spouse felt confident that he could either get patient to an appt or facilitate a tele medicine visit. This LINSEED OIL REFINER encouraged both patient/spouse to follow closely w/ Dr Perez. LINSEED OIL REFINER team may be able to assist Saturday in investigating f/u appts available to patient (?) Placed call to [facility]; suggested that patient may DC over the w/e. faxed signed F2F, HH order, H+P and other clinical notes. [facility] will need DC Summary and update on DC date upon DC P: DC home w/family to assist, likely need transport via BLS vs family pov (?), [facility] following for RN/PT/PUTTY AND CAULKING SUPERVISOR Following closely. KASSIDY Henderson
[2020-03-10 16:00] VITALS: BP 180/78; PULSE 89; RESP 20; TEMP 36.1; O2SAT 93
[2020-03-10] MEDS: DULOXETINE 30 MG CAPSULE 60 MG PO (21:11)
[2020-03-10] MEDS: TRAZODONE 50 MG TABLET 100 MG PO (21:11)
[2020-03-10] MEDS: ATORVASTATIN 20 MG TABLET 40 MG PO (21:11)
[2020-03-10] MEDS: SODIUM CHLORIDE 0.9% FLUSH 10 ML IV (21:12)
[2020-03-10 21:20] VITALS: PULSE 85; RESP 16; O2SAT 93
[2020-03-10] MEDS: ONDANSETRON 4 MG/2 ML INJ IV (21:48)
--- NOTE | 2020-03-11 02:05 | PC.NURSE ---
live ammunition inspector note tilted taras bed to left side for patient comfort
--- NOTE | 2020-03-11 02:06 | PC.NURSE ---
laboratory operations coordinator note: tilted taras bed towards center for comfort
[2020-03-11 05:32] LABS: Add Manual Diff / Slide Review NO; Basophils Absolute Auto 0 /uL (0-100); Basophils Percent Auto 0.8 % (0-2); Eosinophils Absolute Auto 100 /uL (0-450); Eosinophils Percent Auto 1.3 % (2-4); Hematocrit 25.3 % (36-46); Hemoglobin 8.6 g/dL (12.0-16.0); Lymphocytes Absolute Auto 1000 /uL (1100-4500); Lymphocytes Percent Auto 18.4 % (25-40); Mean Corpuscular HGB Conc 33.8 % (30-36); Mean Corpuscular Volume 115.2 fL (80-100); Monocytes Absolute Auto 600 /uL (0-900); Monocytes Percent Auto 11.5 % (3-14); Neutrophils Absolute Auto 3600 /uL (1500-7000); Platelet Count 208 X10^3/uL (150-400); Red Cell Distribution Width 21.4 % (11.6-14.8); White Blood Cell Count 5.2 X10^3/uL (4.5-11.0)
[2020-03-11 05:40] LABS: Alanine Aminotransferase 27 IU/L (<35); Albumin 1.9 g/dL (3.5-5.0); Albumin Globulin Ratio 0.6 (1.0-2.8); Alkaline Phosphatase 65 U/L (38-126); Aspartate Aminotransferase 34 IU/L (14-36); Bilirubin Total 0.4 mg/dL (0.2-1.3); Blood Urea Nitrogen 3 mg/dL (7-17); Carbon Dioxide 27 mmol/L (22-32); Chloride 105 mmol/L (98-107); Estimated Glomerular Filt Rate > 60.0 mL/min (>60); Glucose 96 mg/dL (80-110); HEMOLYSIS 16 (0-50); Potassium 4.1 mmol/L (3.4-5.1); Sodium 131 mmol/L (137-145); Total Protein 4.9 g/dL (6.3-8.2)
[2020-03-11 05:42] LABS: Magnesium 1.5 mg/dL (1.6-2.3)
[2020-03-11 06:00] VITALS: BP 147/68; PULSE 104; RESP 15; TEMP 36.1; O2SAT 93
[2020-03-11 06:07] LABS: Anisocytosis 2+
[2020-03-11] MEDS: PANTOPRAZOLE 40 MG TABLET PO (06:18)
--- NOTE | 2020-03-11 06:24 | PC.NURSE ---
LEASING AGENT note: stood patient up at side of the bed to stand pivot to the BSC. Patient was holding my hand and was moving well. When getting her back into bed, she was slumping more and more saying she was tired. She was holding my hand but I was using her pull up to help keep her up. Patient will be a two person up next time.
[2020-03-11 07:25] VITALS: BP 153/66; PULSE 104; RESP 14; TEMP 37.7; O2SAT 92
--- NOTE | 2020-03-11 08:39 | P.PN_ITS ---
Subjective Subjective Date Patient Seen: 03/11/20 Time Patient Seen: 08:39 Interval history: Patient needing this morning. Feeling slightly better. Not complaining of any pain. No other change. Exam Vital Signs (past 8 hours): - 03/11/20 06:00 Temperature 97.0 F L Pulse Rate 104 H Respiratory Rate 15 Blood Pressure 147/68 H Pulse Oximetry 93 Oxygen Delivery Method Room Air Oxygen Flow Rate 0 Narrative Exam Narrative: Alert smiling female in no acute distress. Lungs are clear. Heart regular rate and rhythm. Abdomen is soft positive bowel sounds nontender. Objective Labs Result Diagrams: 03/11/20 04:55 03/11/20 04:55 Labs: Laboratory Results - last 24 hr 03/11/20 03/11/20 03/11/20 04:55 04:55 04:55 WBC 5.2 RBC 2.20 L Hgb 8.6 L Hct 25.3 L MCV 115.2 H MCH 39.0 H MCHC 33.8 RDW 21.4 H Plt Count 208 Neut % (Auto) 68.0 Lymph % (Auto) 18.[address] [place] % (Auto) 11.5 Eos % (Auto) 1.3 L Baso % (Auto) 0.8 Neut # (Auto) 3600 Lymph # (Auto) [address] [place] # (Auto) 600 Eos # (Auto) 100 Baso # (Auto) 0 RBC Morphology See below Anisocytosis 2+ H Sodium 131 L Potassium 4.1 Chloride 105 Carbon Dioxide 27 BUN 3 L Creatinine 0.30 L Estimated GFR > 60.0 BUN/Creatinine Ratio 10.0 Glucose 96 Calcium 8.0 L Magnesium 1.5 L Total Bilirubin 0.4 AST 34 ALT 27 Alkaline Phosphatase 65 Total Protein 4.9 L Albumin 1.9 L Globulin 3.0 Albumin/Globulin Ratio 0.6 L Assessment & Plan Assessment & Plan narrative: Hypokalemia. Much improved. Will continue 40 mil equivalents once a day. Probably secondary to her diarrhea. Seems to be improving and will follow Decreased magnesium. Stable. Will continue peer to follow. Hypo calcemia. Still low. Will repeat calcium today. Pleural effusions. Probably secondary to severe dietary protein decrease and chronic nausea and chronic diarrhea. Echo was negative. Appears to be mostly related to her depression. At this point will continue to follow. As outpatient. Echo appears normal in other workup has been negative. Unlikely to be cancers process but may need to be drained and evaluated. Will follow as outpatient and decide. Chronic nausea. EGD is negative CT is negative. Workup is otherwise unremarkable. Probably related to her depression. Will continue PPI and follow from there. Chronic diarrhea. Negative workup at this point. Will follow. Seems to be improved at this time. Depression. Probably the biggest issue with her failure to thrive. Appreciate Dr. hernadez worse input. Will follow-up with him as outpatient. Failure to thrive. Combination of multifactorial issues. Depression probably the most likely. History of coronary artery disease. Stable. Will follow. Liver cyst. Appear benign. Severe malnutrition. Main issue. Combination with her depression. Will follow fire prevention forester's support. Disposition. If stable with labs could go home tomorrow. Appears to need 24 hour care. Home health is already set up. Family is going to set up care. If labs are normal can go home. Quality VTE Deep Vein Thrombosis/Pulmonary Embolism Present on Admission: No
[2020-03-11] MEDS: MONTELUKAST 10 MG TABLET PO (09:56)
[2020-03-11] MEDS: SODIUM CHLORIDE 0.9% FLUSH 10 ML IV ×2 (09:57→21:10)
[2020-03-11] MEDS: ESCITALOPRAM 10 MG TABLET 20 MG PO (09:57)
[2020-03-11] MEDS: GABAPENTIN 300 MG CAPSULE 900 MG PO ×3 (09:57→21:10)
[2020-03-11] MEDS: CALCIUM GLUCONATE 9.3 MEQ in SODIUM CHLORIDE 0.9% 50 ML 140 ML IV (09:57)
[2020-03-11] MEDS: METOPROLOL ER 50 MG TABLET PO (09:57)
[2020-03-11 13:05] VITALS: PULSE 90; RESP 16; O2SAT 100
[2020-03-11] MEDS: ALBUTEROL 2.5 MG/3 ML NEB (ADULT) INH ×2 (13:05→21:25)
--- NOTE | 2020-03-11 13:37 | CM.DPC ---
DCP Cont: Per MD, pt's Echo/CT/EGD all came back negative and still waiting for electrolytes to get in the normal range and likely plan of d/c home with family assist/PP CG and HH tomorrow if stable. DESHAWN called [facility] and updated on likely d/c tomorrow if stable and confirmed they have accepted the new referral. DESHAWN spoke to pt's spouse Davey and updated on [facility] at d/c and he is very agreeable and states he continues to work on securing private pay caregiver and has attempted private caregivers in the past not through an agency and that he has had difficulty finding a competent and good caregiver and therefore he plans to call [facility] agencies today towards setting up caregiver for tomorrow. DESHAWN inquired if spouse would like the contact number for Dr. Perez Psychiatrist for scheduling a new pt/follow up appointment and he requests SW to call [facility] just to determine their availability. DESHAWN called [facility] [employer] [facility] and currently Dr. Perez scheduling out into April but could have a sooner opening. Pt/spouse first need to fill out new patient forms prior to being scheduled and SW printed off the new client packet to provide to pt and spouse to complete prior or after discharge. Plan: SW to follow closely for plan of d/c home tomorrow with spouse and son if stable and [facility] to open pt to service and spouse calling [facility] agency. SW to fax the d/c summ to [facility] at discharge. KASSIDY Irizarry
--- NOTE | 2020-03-11 15:14 | DIET.PN ---
Dietary Progress Note Results of first 24h calorie and protein count show pt is consuming 515kcals (37% EER) and 38.5g PRO (70% EER). Pt initially agreeable to ONS Ricardo, Enlive, Glucerna but has consumed 0% ONS in 24h despite repeat offers and being included on meal trays. Pt being served half portions of all items and eating at best, half of the half. Intake Includes: B: 1/4c scrambled egg c cheese and tomato, water L: 1/2 veggie burger c cheese, pickle, lettuce, tomato, mustard D: 1/4 chicken breast, 1/2 c mashed potatoes and gravy Sn: few bites apple sauce Current POs not at the level to resolve Severe Acute on Chronic Protein Calorie Malnutrition Will continue calorie count. HT: 154.9cm WT: 44kg (+3.5kg since admit, pt 2+ edema) UBW: 47kg (85% of [place] Body Weight) BMI: 18.3 Labs: Na 130 L, K+ 3.2 L MNA: 2 malnourished George: 15 high risk for skin breakdown Nutrition Diagnosis: ongoing Severe Acute on Chronic PCM r/t low appetite and also fear of IBS sx (diarrhea) aeb unintentional weight loss 15% in 6 mo and 6.5% in 1 w, pt consuming <50% EERs in >1mo, BMI 16.9 (severe), chronic cramping diarrhea secondary to IBS, severe muscle and fat wasting throughout c accompanying weakness. Interventions: 1. Pt to receive half portions of general diet order while in hospital c ONS. 2. Home goal plan is to consume three high protein meals per day, if pt cannot consume a meal, it can be replaced with an ONS Ensure Enlive (350kcal, 20g PRO). Diet Order: General EER: 1400 kcal (+350kcal for weight gain), 55g PRO (1.3g/kg per malnutrition) Monitoring/Evaluations: ONS tolerance, POs
[2020-03-11 15:18] LABS: BUN Creatinine Ratio 9.7 (6-22); Blood Urea Nitrogen 3 mg/dL (7-17); Calcium 8.4 mg/dL (8.4-10.2); Carbon Dioxide 27 mmol/L (22-32); Chloride 103 mmol/L (98-107); Estimated Glomerular Filt Rate > 60.0 mL/min (>60); Glucose 116 mg/dL (80-110); HEMOLYSIS < 15 (0-50); Potassium 3.7 mmol/L (3.4-5.1); Sodium 130 mmol/L (137-145)
--- NOTE | 2020-03-11 15:21 | OT.IP.TRT ---
Current Diagnoses Failure to thrive (child) (03/07/20) Surgery Performed Operation Date: 03/09/20 15:45 Actual Procedures p Esophagogastroduodenoscopy WITH BIOPSY(Not Applicable) - Torsten Martin MD s Colonoscopy WITH BIOPSY(Not Applicable) - Torsten Martin MD Occupational Therapy Treatment Note M2 OT-IP Current Condition Start: 03/10/20 14:32 Freq: Status: Active Protocol: Document 03/10/20 14:32 [facility] (Rec: 03/10/20 14:57 [facility] [id number]) Occupational Therapy Current Condition Current Condition Evaluation Date 03/10/20 Treatment Diagnosis Hypokalemia, hyponatremia, decreased self care and mobility Diagnosis Onset Date 03/07/20 Weight Bearing Status Weight Bearing Status Weight Bear as Tolerated M3 OT- IP Subjective and Pain Start: 03/10/20 14:32 Freq: Status: Active Protocol: Document 03/11/20 14:43 [facility] (Rec: 03/11/20 15:21 [facility] [id number]) OT- Subjective Occupational Therapy Visit Type Type Treatment Note Visit Start Time 14:43 Visit Stop Time 15:06 Total Visit Minutes 23 Occupational Therapy Visit Comments Patient Comments Pt in bed and not wanting to shower at this time. Pt's son came in for part of the session and able to go over bed mobility with him. Patient/Caregiver Goals To go home. OT Pain Assessment Pain When Pain Assessed At Rest Pain Present Pain Present Denied Pain M4 OT- IP ADL's Start: 03/10/20 14:32 Freq: Status: Active Protocol: Document 03/10/20 14:32 [facility] (Rec: 03/10/20 14:57 [facility] [id number]) OT [id number] Comments OT Self-Feeding Comments Pt having poor appetite OT ADL-Grooming General Evaluation Grooming Ability Moderate Assistance Areas Needing Assistance Combing/Brushing Hair Comments OT Grooming Comments Pt having difficulty to brush her hand due to hands swollen and IV limiting her use of RUE . OT ADL-Dressing General Eval Lower Body Dressing Ability Maximum Assistance Areas Needing Assistance Socks OT ADL-Toileting Comments OT Toileting Comments Pt not having to go but would need MAX A for hygiene and for clothing management need. OT ADL-Bathing Comments OT Bathing Comments Not at this time, to attempt tomorrow. M5 OT- IP IADL's Start: 03/10/20 14:32 Freq: Status: Active Protocol: Document 03/10/20 14:32 [facility] (Rec: 03/10/20 14:57 [facility] [id number]) OT-Instrumental Activities of Daily Living Deficits IADL Deficits Identified Deficits Medication Management Medication Management Caregiver Administers Money Management Money Management Caregiver Provides Assistance Meal Preparation Meal Preparation Caregiver Provides Assist Veneer Sample Maker Veneer Sample Maker Caregiver Provides Assist Driving Driving Caregiver Provides Assist M8 OT- IP Objective Assessments Start: 03/10/20 14:32 Freq: Status: Active Protocol: Document 03/11/20 14:43 [facility] (Rec: 03/11/20 15:21 [facility] [id number]) OT Gross Range of Motion Upper Extremity Range of Motion ROM Impairments Able to do gentle ROM due to swelling for bilateral hands L > R. Pt now able to make a fist with her left hand. Encourage pt to elevate her arms and make a fist with her hands throughout the day. M9 OT- IP Assessment and Plan Start: 03/10/20 14:32 Freq: Status: Active Protocol: Document 03/11/20 14:43 [facility] (Rec: 03/11/20 15:21 [facility] [id number]) OT Summary Assessment and Plan Potential Rehabilitation Potential Fair Analytic Complexity at Evaluation Moderate Summary OT Impairments Range of Motion,Strength, Balance,Coordination, Functional Cognition, Functional Mobility,Self- Feeding,Grooming,Dressing, Toileting,Bathing,Toilet Transfers,Shower Transfers, Activity Tolerance Progress Towards Goals Slow Progress due to Medical Issues,Slow Progress due to Activity Tolerance,Slow Progress due to Cognition Assessment Summary Able to do caregiver training with pt's son for bed mobility needs. Pt to educated pt on positioning needs for BUE to keep her arms elevated as much as possible and encourage her to use her hands to help get the swelling out of her hands. Pt looking to go home tomorrow with family, bar helper, and home health. At this time would be best to have fire department bring pt into the house. Goals Self-Feeding Goal Standby Assistance Grooming Goal Standby Assistance Dressing Goal Moderate Assistance Toileting Goal Moderate Assistance Bathing Goal Moderate Assistance Toilet Transfer Goal Contact Guard Assistance Shower Transfer Goal Minimal Assistance Patient/Caregiver Education Goal Caregiver Independent Assisting Patient Days to Meet Goals 6 Frequency of Treatment Frequency Of Treatment Once a Day Treatment Plan OT Treatment Plan ADL Training,Functional Cognition Training,Functional Mobility,Patient/Family Education,Discharge Planning Other Treatment Recommendations and Next Shower Treatment Focus Discharge Recommendations OT Discharge Recommendations Home with 24/ Assist,Home Health Home Equipment Needs FWW, WC, shower chair with back Transportation Needs at Discharge Private Vehicle,Stretcher/ Ambulance
--- NOTE | 2020-03-11 15:59 | PT.IPTN ---
Current Diagnoses Failure to thrive (child) (03/07/20) Surgery Performed Operation Date: 03/09/20 15:45 Actual Procedures p Esophagogastroduodenoscopy WITH BIOPSY(Not Applicable) - Torsten Martin MD s Colonoscopy WITH BIOPSY(Not Applicable) - Torsten Martin MD Physical Therapy Treatment Note M2 PT-IP Current Condition Start: 03/08/20 16:50 Freq: NEEDED Status: Active Protocol: Document 03/08/20 13:30 AB (Rec: 03/08/20 17:24 AB [id number]) Physical Therapy Current Condition Current Condition Evaluation Date 03/08/20 Treatment Diagnosis failure to thrive; difficulty in walking Onset Date 03/07/20 M3 PT-IP Subjective Start: 03/08/20 16:50 Freq: NEEDED Status: Active Protocol: Document 03/11/20 15:45 KS (Rec: 03/11/20 16:39 KS [email or web address]) Subjective Physical Therapy Visit Type Type Treatment Note Visit Start Time 15:45 Visit Stop Time 15:59 Total Visit Minutes 14 Number of CAR FRAMER Visits 2 Physical Therapy Visit Comments Patient Comments Pt agreeable to do exercises in bed only. Therapy Pain Assessment Pain Present Pain Present Denied Pain M4 PT-IP Mobility and Gait Start: 03/08/20 16:50 Freq: NEEDED Status: Active Protocol: Document 03/11/20 15:45 KS (Rec: 03/11/20 16:39 KS [id number]) PT-Transfer Assessment Comments Mobility Comments Pt stated that she was very tired and did not want to get out of bed, but she agreed to do exercises in bed. Pt completed 1x10 bilateral ankle pumps, quad sets, glute sets, heel slides, and bridges. Pt required verbal and tactile cues for heel slides and bridges. Reported fatigue secondary to exercise. Gait Assessment Comments Gait Comments Not assessed at this time d/t pt fatigue. M5 PT-IP Objective Assessments Start: 03/08/20 16:50 Freq: NEEDED Status: Active Protocol: Document 03/08/20 13:30 AB (Rec: 03/08/20 17:24 AB [id number]) Orientation Orientation/Cognition Level of Alertness Alert Orientation Name Safety Awareness Decreased Safety Awareness Memory Description Short Term Impaired Gross Range of Motion Lower Extremity ROM Assessment Within Functional Limits Strength Lower Extremity Strength Assessment Bilaterally Impaired Hip 3+/5 Knee 3+/5 Coordination Assessment Gross Coordination Gross Coordination WNL Sensation Assessment Sensation Gross Sensation WNL Muscle Tone Muscle Tone WNL Yes M6 PT-IP Treatment Start: 03/08/20 16:50 Freq: NEEDED Status: Active Protocol: Document 03/11/20 15:45 KS (Rec: 03/11/20 16:39 KS [email or web address]) Physical Therapy Treatment Exercises Exercises Ankle Pumps,Gluteal Sets,Quad Sets,Heel Slides Other Treatments Other Treatment Performed Bridges M7 PT-IP Assessment and Plan Start: 03/08/20 16:50 Freq: NEEDED Status: Active Protocol: Document 03/11/20 15:45 KS (Rec: 03/11/20 16:39 KS [id number]) PT Summary Assessment and Plan Potential Rehabilitation Potential Fair Status of Condition at Evaluation Evolving Summary Impairments Pain,ROM,Strength,Balance, Coordination,Sensation,Tone, Cognition,Bed Mobility, Transfers,Gait,Activity Tolerance Assessment Summary Pt rerfused getting out of bed this treatment, but completed LE strengthening exercises to improve strength and bed mobility. Pt is very weak, has low tolerance for activity and will require SNF to improve functional mobility. Goals Bed Mobility Goal Contact Guard Assistance Transfer Goal Contact Guard Assistance,Front Wheeled Walker Gait Goal Contact Guard Assistance,Front Wheel Walker Gait Distance 50 Other Goals up/down 12 steps 1 rail CGA Days to Meet Goals 10 Frequency of Treatment Frequency Of Treatment Once a Day Treatment Plan Physical Therapy Treatment Plan Bed Mobility Training,Transfer Training,Gait Training, Therapeutic Exercise,Balance Retraining,Discharge Planning, Neuromuscular Re-ed, Coordination Retraining Recommendations To Nursing Amount of Assist Needed 1 Person Assist Discharge Recommendations PT Discharge Recommendations Home with 22/04 Assist,Home Health,SNF Rehab Transportation Needs at Discharge Wheelchair/Cabulance,Stretcher /Ambulance
[2020-03-11 16:00] VITALS: BP 156/75; PULSE 92; RESP 18; TEMP 36.2; O2SAT 99
[2020-03-11] MEDS: DULOXETINE 30 MG CAPSULE 60 MG PO (21:10)
[2020-03-11] MEDS: TRAZODONE 50 MG TABLET 100 MG PO (21:10)
[2020-03-11] MEDS: ATORVASTATIN 20 MG TABLET 40 MG PO (21:10)
[2020-03-11 21:27] VITALS: PULSE 97; RESP 16; O2SAT 94
[2020-03-12] VITALS: BP 139/67; PULSE 89; RESP 16; TEMP 36.3; O2SAT 95
[2020-03-12 05:41] LABS: Add Manual Diff / Slide Review NO; Basophils Absolute Auto 0 /uL (0-100); Basophils Percent Auto 0.8 % (0-2); Eosinophils Absolute Auto 100 /uL (0-450); Eosinophils Percent Auto 2.9 % (2-4); Hematocrit 24.7 % (36-46); Hemoglobin 8.9 g/dL (12.0-16.0); Lymphocytes Absolute Auto 1100 /uL (1100-4500); Lymphocytes Percent Auto 23.1 % (25-40); Mean Corpuscular Hemoglobin 41.6 PG (26-34); Mean Corpuscular Volume 115.6 fL (80-100); Monocytes Absolute Auto 500 /uL (0-900); Monocytes Percent Auto 11.1 % (3-14); Neutrophils Absolute Auto 3000 /uL (1500-7000); Neutrophils Percent Auto 62.1 % (50-75); Platelet Count 207 X10^3/uL (150-400); Red Blood Cell Count 2.13 X10^6/uL (4.0-5.2); Red Cell Distribution Width 21.2 % (11.6-14.8); White Blood Cell Count 4.9 X10^3/uL (4.5-11.0)
[2020-03-12 05:50] LABS: Alanine Aminotransferase 23 IU/L (<35); Albumin 1.9 g/dL (3.5-5.0); Albumin Globulin Ratio 0.7 (1.0-2.8); Alkaline Phosphatase 73 U/L (38-126); Aspartate Aminotransferase 29 IU/L (14-36); Bilirubin Total 0.3 mg/dL (0.2-1.3); Carbon Dioxide 30 mmol/L (22-32); Chloride 104 mmol/L (98-107); Estimated Glomerular Filt Rate > 60.0 mL/min (>60); Globulin 2.8 g/dL (1.7-4.1); Glucose 100 mg/dL (80-110); HEMOLYSIS < 15 (0-50); Potassium 3.8 mmol/L (3.4-5.1); Sodium 132 mmol/L (137-145); Total Protein 4.7 g/dL (6.3-8.2)
[2020-03-12 05:52] LABS: BUN Creatinine Ratio 6.9 (6-22); Blood Urea Nitrogen 2 mg/dL (7-17)
[2020-03-12 06:01] LABS: Anisocytosis 2+
[2020-03-12 06:03] LABS: Macrocytosis 3+
[2020-03-12] MEDS: PANTOPRAZOLE 40 MG TABLET PO (06:14)
[2020-03-12 07:49] VITALS: BP 134/61; PULSE 82; RESP 16; TEMP 36.1; O2SAT 95
[2020-03-12 08:31] VITALS: BP 134/61
[2020-03-12] MEDS: POTASSIUM CHLORIDE 20 MEQ TAB 40 MEQ PO (08:31)
[2020-03-12] MEDS: METOPROLOL ER 50 MG TABLET PO (08:31)
[2020-03-12] MEDS: GABAPENTIN 300 MG CAPSULE 900 MG PO (08:32)
[2020-03-12] MEDS: SODIUM CHLORIDE 0.9% FLUSH 10 ML IV (08:32)
[2020-03-12] MEDS: MONTELUKAST 10 MG TABLET PO (08:32)
[2020-03-12] MEDS: ESCITALOPRAM 10 MG TABLET 20 MG PO (08:35)
--- NOTE | 2020-03-12 08:56 | PM.DS.1 ---
History of Present Illness History of Present Illness Date Patient Seen: 03/12/20 Time Patient Seen: 08:59 Chief complaint: Failure to thrive Discharge Providers Provider Date of admission: 03/07/20 10:10 Discharge Date: 03/12/20 Primary care physician: Berhane Mccloud MD Consults: 03/07/20 12:24 Consult to Dietitian, Adult Routine Comment: Reason For Exam: loss of appetite, weakness 03/07/20 12:39 Consult to Dietitian, Adult Routine Comment: Reason For Exam: weight loss, weakness, loss of appetite, bed bound 03/07/20 13:35 Consult to Dietitian, Adult Routine Comment: Reason For Exam: failure to thrive malnutrition weight loss Consult to Discharge Planning Routine Comment: 03/07/20 13:37 Consult to Physician Routine Comment: Consulting Provider: Chris Ruano Reason for consultation: depression and failure to thrive Has provider been notified: Yes 03/08/20 08:36 Consult to Physician Routine Comment: Consulting Provider: Torsten Martin Reason for consultation: nausea abnormal ct scan Has provider been notified: Yes 03/08/20 08:50 Consult to Physical Therapy Evaluate & Treat Comment: Physician Instructions: Evaluate and Treat 03/09/20 10:45 Consult to Occupational Therapy Evaluate & Treat Comment: Physician Instructions: Evaluate and treat 03/09/20 18:46 Consult to Dietitian, Adult Routine Comment: Reason For Exam: failure to thrive 03/10/20 16:04 Consult to Home Health Routine Comment: Reason For Exam: Home health Upon DC Discharge provider: Amina Howell MD Summary Hospital Course Discharge Diagnosis: Failure to thrive Hypokalemia Depression Anxiety Anemia, macrocytic unclear etiology Atrophic gastritis Inflammation: On CT scan Consultations: Dr. alden Martin Procedures: 03/09/2020 EGD showing atrophic gastritis; colonoscopy showing some inflammation and biopsies pending Hospital Course: Patient admitted to the hospital for failure to thrive. Patient found to have hypokalemia and macrocytic anemia which has been longstanding. This was treated. Dr. ruano was consulted for depression. Appreciate his input. Patient had recently been started on the citalopram. She was maintained on her outpatient antidepressant therapy. She was consulted by Dr. Martin after CT scan showed inflammation of the colon. She had persistent nausea vomiting and EGD showed atrophic gastritis. Colonoscopy biopsies are pending. Patient's condition improved with IV Reglan and potassium supplementation. Patient was discharged home in improved and stable condition. Patient discharged on all home medications the same. The only change was adding potassium and Raglan. Prescriptions were sent to [facility]. Discharge follow-up with Dr. Mccloud next week and with Dr. ruano Status at Discharge Cognitive/behavioral status at discharge: oriented Functional status at discharge: uses cane/walker Overall status at discharge: patient is progressing back to baseline Time Spent with Patient Time spent: Greater than 30 minutes Exam Vital Signs (past 8 hours): - 03/12/20 08:31 Blood Pressure 134/61 Oxygen Delivery Method Room Air Oxygen Flow Rate 0 Narrative Exam Narrative: Afebrile, vital signs are stable Patient is alert and oriented x3 and pleasant. Patient is pale HEENT: Unremarkable Neck: Supple Chest: Clear to auscultation without wheezes rhonchi or crackles Cor: Regular rate and rhythm without murmur Abdomen: Positive bowel sounds, soft, nontender, nondistended Extremities: Trace pretibial edema, warm, pulses intact Neurologic exam nonfocal Objective Labs Result Diagrams: 03/12/20 05:17 03/12/20 05:17 Labs: Laboratory Results - last 24 hr 03/11/20 03/12/20 03/12/20 14:56 05:17 05:17 WBC 4.9 RBC 2.13 L Hgb 8.9 L Hct 24.7 L MCV 115.6 H MCH 41.6 H MCHC 36.0 RDW 21.2 H Plt Count 207 Neut % (Auto) 62.1 Lymph % (Auto) 23.1 L [place] % (Auto) 11.1 Eos % (Auto) 2.9 Baso % (Auto) 0.8 Neut # (Auto) 3000 Lymph # (Auto) 1100 [place] # (Auto) 500 Eos # (Auto) 100 Baso # (Auto) 0 RBC Morphology See below Anisocytosis 2+ H Macrocytosis 3+ H Sodium 130 L 132 L Potassium 3.7 3.8 Chloride 103 104 Carbon Dioxide 27 30 BUN 3 L 2 L Creatinine 0.31 L 0.29 L Estimated GFR > 60.0 > 60.0 BUN/Creatinine Ratio 9.7 6.9 Glucose 116 H 100 Calcium 8.4 8.0 L Total Bilirubin 0.3 AST 29 ALT 23 Alkaline Phosphatase 73 Total Protein 4.7 L Albumin 1.9 L Globulin 2.8 Albumin/Globulin Ratio 0.7 L Discharge Plan Discharge Plan Patient Disposition: Home Discharge orders & Medications Prescriptions: New metoclopramide HCl 5 mg/mL Solution 10 mg PO Q6HR PRN (Reason: Nausea And Vomiting) Qty: 60 RF: 1 potassium chloride [Klor-Con M20] 20 mEq Tablet,Er Particles/Crystals 40 meq PO DAILYCC Qty: 30 RF: 1 Continued Fexofenadine Hydrochloride (Ada) tablet 180 mg PO Q DAY Qty: 0 RF: 0 aspirin 81 MG tablet,delayed release (DR/EC) 81 mg PO QDAY Qty: 0 RF: 0 omeprazole 40 MG capsule,delayed release(DR/EC) 40 mg PO QDAY Qty: 0 RF: 0 Metoprolol Succinate (METOPROLOL XL) tablet See Rx Instructions .ROUTE .COMPLEX MDD 150 Qty: 0 RF: 0 atorvastatin [Lipitor] 20 MG tablet 40 mg PO QDAY Qty: 0 RF: 0 gabapentin [Neurontin] 300 MG capsule 300 mg PO TID Qty: 0 RF: 0 trazodone 50 MG tablet 100 mg PO ONCE HS Qty: 0 RF: 0 montelukast [Singulair] 10 MG tablet 10 mg PO QDAY Qty: 0 RF: 0 duloxetine [Cymbalta] 60 MG capsule,delayed release(DR/EC) 30 mg PO DAILY Qty: 0 RF: 0 Lactobacillus acidophilus 1 EACH capsule 1 tab PO QDAY Qty: 0 RF: 0 alprazolam 0.25 MG tablet 0.25 mg PO QHS PRN (Reason: Anxiety) Qty: 0 RF: 0 dicyclomine [Bentyl] 10 mg/mL Solution 10 mg IM PRN PRN (Reason: Diarrhea) RF: 0 naproxen sodium [Aleve] 220 mg Tablet 220 mg PO Q12H PRN (Reason: Pain (Scale Score 1-3)) RF: 0 albuterol sulfate [Ventolin HFA] 90 mcg/actuation Hfa Aerosol Inhaler 2 puff INHALATION Q4-6H PRN (Reason: Shortness Of Breath) RF: 0 ondansetron HCl [Zofran] 4 MG tablet 4 mg PO Q4HP PRN (Reason: Nausea) RF: 0 acetaminophen 325 mg Capsule 650 mg PO Q4H PRN (Reason: Pain (Scale Score 1-3)) RF: 0 escitalopram oxalate 20 mg tablet 20 mg PO DAILY RF: 0 eszopiclone 2 mg Tablet 2 mg PO BEDTIME RF: 0 Dramamine 25 mg Tablet,Chewable 25 mg PO Q4-6H PRN (Reason: Nausea) RF: 0 Premarin 0.625 mg/gram Cream 0.625 applic topical PRN PRN (Reason: other) RF: 0 Sudafed 120 mg PO PRN PRN (Reason: allergies) RF: 0 Follow up/Referrals: Berhane Mccloud MD [Primary Care Provider] - Discharge Data Primary Care Provider: Berhane Mccloud Quality VTE Deep Vein Thrombosis/Pulmonary Embolism Present on Admission: No
--- NOTE | 2020-03-12 09:25 | CM.DPC ---
DCP Discharge home with HH Per MD, pt is medically stable to d/c home with HH today. SW met bedside with pt and explained role and provided pt with her Medicare Rights and she acknowledged understanding and signed her Medicare Message. Pt confirmed that she is agreeable with d/c home with spouse today and [facility] and states her plans to call [facility] early Saturday morning as he did not have time yesterday. Pt and spouse still agreeable with d/c home with private caregivers to be set up in the next couple days. SW provided the new patient packet to complete for [facility] prior to calling to set up the first appointment and pt states she is still agreeable with following up with Dr. Perez after discharge and printed packet placed in pt's d/c folder and updated RN. DESHAWN called [facility] and faxed d/c summary and F2F/MD orders again to alert them that pt is discharging home today. Plan: Patient to d/c home today via spouse POV around lunchtime with [facility] to open pt to service, spouse to secure [facility] caregiver at home, and follow up with Dr. Perez Psychiatrist [facility] after discharge. KASSIDY Irizarry
[2020-03-12] MEDS: ALBUTEROL 2.5 MG/3 ML NEB (ADULT) INH (09:48)
[2020-03-12 09:50] VITALS: PULSE 80; RESP 16; O2SAT 97
--- NOTE | 2020-03-12 11:05 | PT.IPTN ---
Current Diagnoses Failure to thrive (child) (03/07/20) Surgery Performed Operation Date: 03/09/20 15:45 Actual Procedures p Esophagogastroduodenoscopy WITH BIOPSY(Not Applicable) - Torsten Martin MD s Colonoscopy WITH BIOPSY(Not Applicable) - Torsten Martin MD Physical Therapy Treatment Note M2 PT-IP Current Condition Start: 03/08/20 16:50 Freq: NEEDED Status: Discharge Protocol: Document 03/08/20 13:30 AB (Rec: 03/08/20 17:24 AB [id number]) Physical Therapy Current Condition Current Condition Evaluation Date 03/08/20 Treatment Diagnosis failure to thrive; difficulty in walking Onset Date 03/07/20 M3 PT-IP Subjective Start: 03/08/20 16:50 Freq: NEEDED Status: Active Protocol: Document 03/12/20 10:50 KS (Rec: 03/12/20 12:32 KS [id number]) Subjective Physical Therapy Visit Type Type Treatment Note Visit Start Time 10:50 Visit Stop Time 11:05 Total Visit Minutes 15 Number of SET UP MECHANIC CROWN ASSEMBLY MACHINE Visits 3 Physical Therapy Visit Comments Patient Comments Pt agreeable to mobilize w/ PT . Pts /caregiver present. Therapy Pain Assessment Pain Present Pain Present Denied Pain M4 PT-IP Mobility and Gait Start: 03/08/20 16:50 Freq: NEEDED Status: Active Protocol: Document 03/12/20 10:50 KS (Rec: 03/12/20 12:32 KS [id number]) PT-Bed Mobility Assessment Rolling Type of Rolling Roll to Left Level of Assist Moderate Assistance,1 Person Assistance Supine to Sit Supine to Sit Moderate Assistance,1 Person Assistance Scooting Scooting to Edge of Bed Contact Guard Assistance PT-Transfer Assessment Sit to and From Stand Sit to and from Stand Contact Guard Assistance,1 Person Assistance,Use of Upper Extremities Equipment Transfer Assistive Device Bed Rail,Front Wheeled Walker Transfers Transfer Destination Bed,Wheelchair Transfer Technique Pt ambulated w/ FWW Transfer Ability Level of Assist Moderate Assistance,1 Person Assistance,Use of Upper Extremities Comments Mobility Comments Pt was supine in bed upon arrival from therapy. Mod A for sup<>sitting EOB. Pts then demonstrated assisting pt out of bed. Educated caregiver on body mechanics and positioning. Pt was able to scoot forward in bed and sit<>stand CGA provided by pts . Pt then took three steps forward and three steps back to bed w/ FWW and reported feelings on weakness. Pt stand<>sit CGA, sitting balance EOB 5 min before completing transfer to w/c CGA w/ Min cues for sequencing and hand placement. Pt left in w/c w/ in room and nursing notified. Gait Assessment Gait Gait Assistance Required: Contact Guard Assist,1 Person Assist Distance (Feet) 6 Able to Maintain Weight Bearing Status Yes During Gait Assistive Devices Assistive Device Gait Belt,Front Wheeled Walker Gait Deviations General Gait Pattern Antalgic,Decreased Stride Length,Decreased Feet Clearance,Flexed Trunk,Narrow Based Gait Factors Limiting Gait Function Factors Limiting Gait Function Decreased Activity Tolerance, Decreased Strength,Poor Balance,Poor Safety Awareness Comments Gait Comments Please refer to mobility section for details. Stair Climbing Assessment Comments Stair Climbing Comments Not assessed at this time PT-Balance Assessment Sitting Balance and Reactions Static Sitting Balance Ability Good Dynamic Sitting Balance Ability Fair Standing Balance and Reactions Static Standing Balance Ability Fair Dynamic Standing Balance Ability Fair Device Used FWW M5 PT-IP Objective Assessments Start: 03/08/20 16:50 Freq: NEEDED Status: Discharge Protocol: Document 03/08/20 13:30 AB (Rec: 03/08/20 17:24 AB [id number]) Orientation Orientation/Cognition Level of Alertness Alert Orientation Name Safety Awareness Decreased Safety Awareness Memory Description Short Term Impaired Gross Range of Motion Lower Extremity ROM Assessment Within Functional Limits Strength Lower Extremity Strength Assessment Bilaterally Impaired Hip 3+/5 Knee 3+/5 Coordination Assessment Gross Coordination Gross Coordination WNL Sensation Assessment Sensation Gross Sensation WNL Muscle Tone Muscle Tone WNL Yes M6 PT-IP Treatment Start: 03/08/20 16:50 Freq: NEEDED Status: Active Protocol: Document 03/12/20 10:50 KS (Rec: 03/12/20 12:32 KS [id number]) Physical Therapy Treatment Exercises Exercises Ankle Pumps,Gluteal Sets,Quad Sets,Heel Slides Education Education Provided Safety Other Treatments Other Treatment Performed Bridges. Reviewed exercises w/ pts and pt. spenser training. M7 PT-IP Assessment and Plan Start: 03/08/20 16:50 Freq: NEEDED Status: Active Protocol: Document 03/12/20 10:50 KS (Rec: 03/12/20 12:32 KS [id number]) PT Summary Assessment and Plan Potential Rehabilitation Potential Fair Status of Condition at Evaluation Evolving Summary Impairments Pain,ROM,Strength,Balance, Coordination,Sensation,Tone, Cognition,Bed Mobility, Transfers,Gait,Activity Tolerance Assessment Summary Pt agreed to mobilizing w/ therapy. Pts present for caregiver training. Pts was able to safely assist pt in getting in and out of bed as well as sit<> stand and stand<>sit in w/c. Educated pt and pts on body mechanics and LE strengthening exercises. Pt is still weak and would benefit from skilled rehab, however pts has good safety awareness when assisting pt. Goals Bed Mobility Goal Contact Guard Assistance Transfer Goal Contact Guard Assistance,Front Wheeled Walker Gait Goal Contact Guard Assistance,Front Wheel Walker Gait Distance 50 Other Goals up/down 12 steps 1 rail CGA Days to Meet Goals 10 Frequency of Treatment Frequency Of Treatment Once a Day Treatment Plan Physical Therapy Treatment Plan Bed Mobility Training,Transfer Training,Gait Training, Therapeutic Exercise,Balance Retraining,Discharge Planning, Neuromuscular Re-ed, Coordination Retraining Recommendations To Nursing Amount of Assist Needed 1 Person Assist Discharge Recommendations PT Discharge Recommendations Home with 22/04 Assist,Home Health,SNF Rehab Transportation Needs at Discharge Wheelchair/Cabulance,Stretcher /Ambulance
--- NOTE | 2020-03-12 11:30 | PC.NURSE ---
Pt is dressed and ready for discharge home with Spouse. IV has been removed. Allevyn dsg to left forearm has been replaced. Went over d/c instructions with Pt and Spouse - discussed d/c meds, time of last dose, reviewed stroke education and follow up with Dr. Mccloud next week. Pt denies further questions and was taken out to pov via w/c by RN with Spouse and all belongings.
--- NOTE | 2020-03-14 14:45 | CM.DPC ---
DCP cont: Faxed 03/09 progress note to [facility] at fax # [phone] as requested. Fax confirmation scanned in. Yuli Pinto, Care Bilingual Manager
== END 2020-03-12 11:31 | disposition home health service (06) | DRG 640 ==
PROVIDERS: Family Medicine; Specialist; Student in an Organized Health Care Education/Training Program; Admitting Provider Family Medicine; PCP Family Medicine; Referring Provider Family Medicine; Visit Provider Family Medicine
PROC: 0DJ08ZZ Inspection of Upper Intestinal Tract, Via Natural or Artificial Opening Endoscopic (ICD-10-PCS; CPT 43235; principal; 2020-03-09 15:45)
PROC: 0DJD8ZZ Inspection of Lower Intestinal Tract, Via Natural or Artificial Opening Endoscopic (ICD-10-PCS; CPT 45378; 2020-03-09 15:45)
DX: R62.7 Adult failure to thrive (principal); E43 Unspecified severe protein-calorie malnutrition; Z68.1 Body mass index [BMI] 19.9 or less, adult; J90 Pleural effusion, not elsewhere classified; F33.9 Major depressive disorder, recurrent, unspecified; K52.9 Noninfective gastroenteritis and colitis, unspecified; R11.0 Nausea; E83.42 Hypomagnesemia; E87.6 Hypokalemia; D64.9 Anemia, unspecified; K29.40 Chronic atrophic gastritis without bleeding; I25.10 Atherosclerotic heart disease of native coronary artery without angina pectoris; F41.9 Anxiety disorder, unspecified; E83.51 Hypocalcemia
CPT/HCPCS: 36415; 36592; 71270; 74177; 80048; 80053; 81001; 82607; 82728; 82746; 82962; 83540; 83550; 83735; 84132; 85025; 87635; 90792; 93306; 94640; 94762; 97110; 97116; 97162; 97166; 97530; 97535; J0610; J2270; J2405; J2704; J2765; J3480; J7613; Q9967

== ENCOUNTER → 2020-03-23 14:31 | Outpatient (ROUT) | payer MEDICARE, SELFPAY ==
[2020-03-07 12:25] VITALS: BMI 16.8
[2020-03-23 14:51] LABS: Add Manual Diff / Slide Review NO; Basophils Absolute Auto 100 /uL (0-100); Eosinophils Absolute Auto 100 /uL (0-450); Eosinophils Percent Auto 1.1 % (2-4); Hematocrit 28.9 % (36-46); Hemoglobin 9.7 g/dL (12.0-16.0); Lymphocytes Absolute Auto 800 /uL (1100-4500); Mean Corpuscular HGB Conc 33.6 % (30-36); Mean Corpuscular Hemoglobin 38.2 PG (26-34); Mean Corpuscular Volume 113.8 fL (80-100); Monocytes Absolute Auto 800 /uL (0-900); Neutrophils Absolute Auto 6600 /uL (1500-7000); Neutrophils Percent Auto 78.9 % (50-75); Platelet Count 597 X10^3/uL (150-400); Red Blood Cell Count 2.54 X10^6/uL (4.0-5.2); Red Cell Distribution Width 17.9 % (11.6-14.8); White Blood Cell Count 8.4 X10^3/uL (4.5-11.0)
[2020-03-23 15:05] LABS: Alanine Aminotransferase 18 IU/L (<35); Albumin 3.4 g/dL (3.5-5.0); Albumin Globulin Ratio 0.9 (1.0-2.8); Alkaline Phosphatase 95 U/L (38-126); Aspartate Aminotransferase 27 IU/L (14-36); BUN Creatinine Ratio 23.3 (6-22); Bilirubin Total 0.5 mg/dL (0.2-1.3); Blood Urea Nitrogen 7 mg/dL (7-17); Calcium 9.1 mg/dL (8.4-10.2); Carbon Dioxide 30 mmol/L (22-32); Chloride 94 mmol/L (98-107); Estimated Glomerular Filt Rate > 60.0 mL/min (>60); Globulin 3.7 g/dL (1.7-4.1); Glucose 103 mg/dL (80-110); HEMOLYSIS < 15 (0-50); Magnesium 1.5 mg/dL (1.6-2.3); Potassium 3.9 mmol/L (3.4-5.1); Sodium 128 mmol/L (137-145); Total Protein 7.1 g/dL (6.3-8.2)
[2020-03-23 15:12] LABS: Anisocytosis 1+
[2020-03-23 15:14] LABS: Macrocytosis 2+
== END ==
PROVIDERS: Visit Provider Family Medicine
DX: R62.7 Adult failure to thrive (principal); R53.1 Weakness; Z79.899 Other long term (current) drug therapy
CPT/HCPCS: 80053; 83735; 84100; 85025

== ENCOUNTER → 2020-03-31 17:30 | Outpatient (ROUT) | payer MEDICARE, SELFPAY ==
[2020-03-07 12:25] VITALS: BMI 16.8
[2020-03-31 17:40] LABS: Basophils Absolute Auto 100 /uL (0-100); Basophils Percent Auto 1.4 % (0-2); Eosinophils Absolute Auto 100 /uL (0-450); Eosinophils Percent Auto 1.8 % (2-4); Hematocrit 26.5 % (36-46); Lymphocytes Absolute Auto 1500 /uL (1100-4500); Lymphocytes Percent Auto 19.2 % (25-40); Mean Corpuscular HGB Conc 34.2 % (30-36); Mean Corpuscular Hemoglobin 36.8 PG (26-34); Mean Corpuscular Volume 107.8 fL (80-100); Monocytes Absolute Auto 600 /uL (0-900); Monocytes Percent Auto 7.1 % (3-14); Neutrophils Absolute Auto 5600 /uL (1500-7000); Neutrophils Percent Auto 70.5 % (50-75); Platelet Count 802 X10^3/uL (150-400); Red Blood Cell Count 2.45 X10^6/uL (4.0-5.2); Red Cell Distribution Width 17.9 % (11.6-14.8)
[2020-03-31 17:44] LABS: Add Manual Diff / Slide Review SLIDE REVIEW
[2020-03-31 18:00] LABS: Alanine Aminotransferase 10 IU/L (<35); Albumin 3.1 g/dL (3.5-5.0); Albumin Globulin Ratio 0.9 (1.0-2.8); Alkaline Phosphatase 80 U/L (38-126); Aspartate Aminotransferase 22 IU/L (14-36); BUN Creatinine Ratio 36.7 (6-22); Bilirubin Total 0.2 mg/dL (0.2-1.3); Blood Urea Nitrogen 11 mg/dL (7-17); Calcium 8.9 mg/dL (8.4-10.2); Carbon Dioxide 28 mmol/L (22-32); Chloride 95 mmol/L (98-107); Estimated Glomerular Filt Rate > 60.0 mL/min (>60); Globulin 3.3 g/dL (1.7-4.1); Glucose 101 mg/dL (80-110); HEMOLYSIS < 15 (0-50); Magnesium 1.5 mg/dL (1.6-2.3); Potassium 4.2 mmol/L (3.4-5.1); Sodium 129 mmol/L (137-145); Total Protein 6.4 g/dL (6.3-8.2)
[2020-03-31 18:28] LABS: Macrocytosis 1+; Platelet Estimate Increased on smear; Polychromasia 1+
== END ==
PROVIDERS: Visit Provider Family Medicine
DX: R62.7 Adult failure to thrive (principal); R53.1 Weakness; Z79.899 Other long term (current) drug therapy
CPT/HCPCS: 80053; 83735; 84100; 85025

== ENCOUNTER → 2020-05-05 14:07 | Outpatient (ROUT) | payer MEDICARE, SELFPAY ==
[2020-05-05 14:26] LABS: Basophils Absolute Auto 0 /uL (0-100); Eosinophils Absolute Auto 0 /uL (0-450); Monocytes Absolute Auto 300 /uL (0-900); White Blood Cell Count 4.6 X10^3/uL (4.5-11.0)
[2020-05-05 14:29] LABS: Alanine Aminotransferase 29 IU/L (<35); Albumin 3.2 g/dL (3.5-5.0); Albumin Globulin Ratio 1.1 (1.0-2.8); Alkaline Phosphatase 92 U/L (38-126); Aspartate Aminotransferase 51 IU/L (14-36); BUN Creatinine Ratio 23.3 (6-22); Bilirubin Total 0.5 mg/dL (0.2-1.3); Blood Urea Nitrogen 10 mg/dL (7-17); Calcium 8.6 mg/dL (8.4-10.2); Carbon Dioxide 25 mmol/L (22-32); Chloride 92 mmol/L (98-107); Estimated Glomerular Filt Rate > 60.0 mL/min (>60); Globulin 2.9 g/dL (1.7-4.1); Glucose 100 mg/dL (80-110); HEMOLYSIS < 15 (0-50); Potassium 3.8 mmol/L (3.4-5.1); Sodium 124 mmol/L (137-145); Total Protein 6.1 g/dL (6.3-8.2)
[2020-05-05 14:34] LABS: Add Manual Diff / Slide Review NO; Basophils Percent Auto 0.6 % (0-2); Eosinophils Percent Auto 0.9 % (2-4); Hematocrit 25.5 % (36-46); Hemoglobin 8.2 g/dL (12.0-16.0); Lymphocytes Absolute Auto 2000 /uL (1100-4500); Lymphocytes Percent Auto 42.9 % (25-40); Mean Corpuscular HGB Conc 32.1 % (30-36); Mean Corpuscular Hemoglobin 28.5 PG (26-34); Mean Corpuscular Volume 88.7 fL (80-100); Monocytes Percent Auto 6.3 % (3-14); Neutrophils Absolute Auto 2300 /uL (1500-7000); Neutrophils Percent Auto 49.3 % (50-75); Platelet Count 470 X10^3/uL (150-400); Red Blood Cell Count 2.88 X10^6/uL (4.0-5.2); Red Cell Distribution Width 24.6 % (11.6-14.8)
[2020-05-05 15:08] LABS: Anisocytosis 2+; Hypochromasia 1+
== END ==
PROVIDERS: Visit Provider Family Medicine
DX: C64.9 Malignant neoplasm of unspecified kidney, except renal pelvis (principal); E87.6 Hypokalemia
CPT/HCPCS: 80053; 85025

== ENCOUNTER 2020-05-06 19:26 | Inpatient (IN) | payer MEDICARE, SELFPAY ==
[2020-05-06] VITALS (17 sets, daily range): BP systolic 148–230; BP diastolic 63–101; PULSE 73–92; RESP 16–38; TEMP 36.3–36.6; O2SAT 95–99; BMI 17.7
--- NOTE | 2020-05-06 19:31 | DI.RAD.S_ITS ---
PROCEDURE: XR CHEST 1V INDICATIONS: Weakness TECHNIQUE: One view of the chest was acquired. COMPARISON: None. FINDINGS: Surgical changes and devices: None. Lungs and pleura: Small left pleural effusion with adjacent atelectasis and bibasilar airspace opacities (at atelectasis or consolidation). Mediastinum: Mediastinal contours appear normal. Heart size is normal. Bones and chest wall: No suspicious bony lesions. Overlying soft tissues appear unremarkable. IMPRESSION: Small left pleural effusion with adjacent atelectasis. Bibasilar airspace opacities, representing atelectasis or consolidation. Pneumonia cannot be excluded. Follow-up to clinical and radiographic resolution recommended. Dictated by: Carlin Alicea M.D. on 05/06/2020 at 20:06 Approved by: Carlin Alicea M.D. on 05/06/2020 at 20:07
[2020-05-06 20:15] LABS: Add Manual Diff / Slide Review NO; Basophils Absolute Auto 0 /uL (0-100); Basophils Percent Auto 0.8 % (0-2); Eosinophils Absolute Auto 0 /uL (0-450); Eosinophils Percent Auto 1.1 % (2-4); Hematocrit 26.8 % (36-46); Hemoglobin 8.7 g/dL (12.0-16.0); Lymphocytes Absolute Auto 1700 /uL (1100-4500); Lymphocytes Percent Auto 37.3 % (25-40); Mean Corpuscular HGB Conc 32.4 % (30-36); Mean Corpuscular Hemoglobin 28.6 PG (26-34); Mean Corpuscular Volume 88.2 fL (80-100); Monocytes Absolute Auto 500 /uL (0-900); Monocytes Percent Auto 10.8 % (3-14); Neutrophils Absolute Auto 2200 /uL (1500-7000); Platelet Count 493 X10^3/uL (150-400); Red Blood Cell Count 3.04 X10^6/uL (4.0-5.2); Red Cell Distribution Width 24.7 % (11.6-14.8); White Blood Cell Count 4.5 X10^3/uL (4.5-11.0)
[2020-05-06 20:22] LABS: Creatine Kinase 83 U/L (30-135)
[2020-05-06 20:24] LABS: Alanine Aminotransferase 23 IU/L (<35); Albumin 3.4 g/dL (3.5-5.0); Albumin Globulin Ratio 1.1 (1.0-2.8); Alkaline Phosphatase 94 U/L (38-126); Aspartate Aminotransferase 38 IU/L (14-36); BUN Creatinine Ratio 17.5 (6-22); Bilirubin Total 0.7 mg/dL (0.2-1.3); Blood Urea Nitrogen 7 mg/dL (7-17); Calcium 8.5 mg/dL (8.4-10.2); Carbon Dioxide 24 mmol/L (22-32); Chloride 89 mmol/L (98-107); Estimated Glomerular Filt Rate > 60.0 mL/min (>60); Globulin 3.2 g/dL (1.7-4.1); Glucose 113 mg/dL (80-110); HEMOLYSIS 21 (0-50); Magnesium 1.3 mg/dL (1.6-2.3); Potassium 3.5 mmol/L (3.4-5.1); Sodium 123 mmol/L (137-145); Total Protein 6.6 g/dL (6.3-8.2)
[2020-05-06 20:30] LABS: Anisocytosis 2+
[2020-05-06 20:36] LABS: NT-proBNP (BNP-Adult 18+) 11200 pg/mL (<125); Troponin I 0.036 ng/mL (0.01-0.034)
--- NOTE | 2020-05-06 20:53 | ED.WEAKNESS ---
HPI - Weakness General Chief complaint: Weakness Stated complaint: Increased Weakness Time Seen by Provider: 05/06/20 19:28 Source: patient Mode of arrival: EMS Limitations: language barrier History of Present Illness HPI Narrative: 74F nonsmoker returns to the emergency department with her for evaluation of profound generalized weakness over the past week. She was seen under relatively similar circumstances in mid February and become increasingly weak and fatigued and was admitted to the hospital with multiple consultations. She had started with a weight of about 105 and a drop down to 82, largely due to a poor appetite lack of intake. During her hospitalization in the aftermath her weight went back up to 93 lb and she had been doing well until 1 week ago. She does live at home with her . She normally gets around with a walker but for the past few days has been unable to do so without significant extra help. She denies any dietary change and states that her only new medication is Lasix which was started yesterday. Related Data Home Medications Medication Instructions Recorded Confirmed Fexofenadine Hydrochloride 180 mg PO Q DAY #0 05/11/06 03/08/20 (Ada) Metoprolol Succinate (METOPROLOL See Rx Instructions .ROUTE 06/06/13 03/08/20 XL) .COMPLEX #0 MDD 150 aspirin 81 mg PO QDAY #0 06/06/13 03/08/20 atorvastatin [Lipitor] 40 mg PO QDAY #0 tab 06/06/13 03/08/20 duloxetine [Cymbalta] 30 mg PO DAILY #0 ecc 06/06/13 03/08/20 gabapentin [Neurontin] 300 mg PO TID #0 06/06/13 03/08/20 montelukast [Singulair] 10 mg PO QDAY #0 tab 06/06/13 03/08/20 omeprazole 40 mg PO QDAY #0 06/06/13 03/08/20 trazodone 100 mg PO ONCE HS #0 tab 06/06/13 03/08/20 Lactobacillus acidophilus 1 tab PO QDAY #0 12/25/16 03/08/20 alprazolam 0.25 mg PO QHS PRN #0 12/25/16 03/08/20 acetaminophen 650 mg PO Q4H PRN 03/02/20 03/08/20 albuterol sulfate [Ventolin HFA] 2 puff INHALATION Q4-6H PRN 03/02/20 03/08/20 dicyclomine [Bentyl] 10 mg IM PRN PRN 03/02/20 03/08/20 naproxen sodium [Aleve] 220 mg PO Q12H PRN 03/02/20 03/08/20 ondansetron HCl [Zofran] 4 mg PO Q4HP PRN 03/02/20 03/08/20 Dramamine 25 mg PO Q4-6H PRN 03/08/20 03/08/20 Premarin 0.625 applic TOPICAL PRN PRN 03/08/20 03/08/20 Sudafed 120 mg PO PRN PRN 03/08/20 03/08/20 escitalopram oxalate 20 mg PO DAILY 03/08/20 03/08/20 eszopiclone 2 mg PO BEDTIME 03/08/20 03/08/20 Previous Rx's Medication Instructions Recorded metoclopramide HCl 10 mg PO Q6HR PRN #60 ml 03/12/20 potassium chloride [Klor-Con M20] 40 meq PO DAILYCC #30 tab 03/12/20 Allergies Allergy/AdvReac Type Severity Reaction Status Date / Time adhesive tape AdvReac Rash Verified 05/06/20 19:33 Review of Systems Constitutional Constitutional: Denies chills, Denies fatigue, Denies fever(s), Denies frequent falls, Reports lethargy and Reports weakness Eyes Eyes: Denies change in vision, Denies eye discharge, Denies irritation and Denies loss of vision ENT Ears, Nose, Mouth, and Throat: Denies change in voice, Denies dizziness, Denies neck pain, Denies sore throat and Denies throat swelling Cardiovascular Cardiovascular: Denies chest pain, Denies irregular heart rhythm, Denies lightheadedness, Denies palpitations, Denies dyspnea, Denies dyspnea on exertion and Denies orthopnea Respiratory Respiratory: Denies cough, Denies dyspnea, Denies dyspnea on exertion and Denies wheezing Gastrointestinal Gastrointestinal: Denies abdominal pain, Denies change in bowel habits, Denies diarrhea, Denies nausea and Denies vomiting Musculoskeletal Musculoskeletal: Denies neck pain and Denies numbness Integumentary/Breasts Skin/Breast: Denies pruritus, Denies erythema, Denies rash and Denies wounds Neurologic Neurologic: Denies behavioral changes, Denies confusion, Denies dizziness, Denies frequent falls, Denies loss of vision, Denies numbness and Reports weakness Psychiatric Psychiatric: Denies anxiety, Denies behavioral changes, Denies confusion, Denies depression, Denies homicidal ideation and Denies suicidal ideation Endocrine Endocrine: Denies fatigue, Denies flushing and Denies palpitations Hematologic/Lymphatic Hematologic/Lymphatic: Denies easy bruising Allergic/Immunologic Allergic/Immunologic: Denies urticaria, Denies throat swelling and Denies wheezing Patient History Medical History Acid reflux disease (Acute) Irritable bowel (Acute) Surgical History H/O hysterectomy for benign disease (Acute) History of appendectomy (Acute) Social History household members: spouse and children Smoking Status: Never smoker alcohol intake: former Smoking Status: Never smoker alcohol intake frequency: holidays/special occasions only Substance Use Type: does not use Exam Narrative Exam Narrative: GENERAL: [74] year old patient appears stated age. She is thin with temporal wasting and appears pale HEAD: Atraumatic. Normocephalic. EYES: Pupils equal round and reactive. Extraocular motions intact. No scleral icterus. No injection or drainage. ENT: Nose without bleeding, purulent drainage. Throat without erythema, tonsillar hypertrophy or exudate. Airway patent. NECK: Trachea midline. Non tender CARDIOVASCULAR: Regular rate and rhythm without murmurs, gallops, or rubs. RESPIRATORY: Clear to auscultation. Breath sounds equal bilaterally. No wheezes, rales, or rhonchi. GASTROINTESTINAL: Abdomen soft, non-tender, nondistended. EXTREMITIES: No edema or joint tenderness. BACK: Nontender without deformity or crepitance. No flank tenderness. NEURO: AOx3. SKIN: No rash or erythema of visible areas Initial Vital Signs Initial Vital Signs: Vital Signs Pulse Rate 79 05/06/20 19:31 Respiratory Rate 23 05/06/20 19:31 Blood Pressure 228/95 H 05/06/20 19:31 Pulse Oximetry 97 05/06/20 19:31 Course Orders Ordered: ED Orders 05/06/20 19:31 XR chest 1V Stat 05/06/20 19:37 Complete Blood Count AUTO DIFF Stat Comprehensive Metabolic Panel Stat Magnesium Stat NT-proBNP (BNP-Adult 18+) Stat Troponin & CK Cardiac Panel Stat 05/06/20 19:44 EKG-12 Lead Stat 05/06/20 21:39 Urine Microscopic Stat Acetaminophen (Tylenol) 650 mg PO Q6HR PRN PRN Reason: Fever/Mild Pain (1-3) Albuterol (Ventolin Hfa (Vent/Covid R/O)) 2 puff INH Q4H PRN PRN Reason: Shortness Of Breath Last Admin: 05/07/20 00:26 Dose: 2 puff Documented by: TIANA Alprazolam (Xanax) 0.25 mg PO BEDTIME PRN PRN Reason: Anxiety Last Admin: 05/06/20 23:58 Dose: 0.25 mg Documented by: KALLIE Atorvastatin Calcium (Lipitor) 40 mg PO BEDTIME [facility] Last Admin: 05/06/20 23:53 Dose: 40 mg Documented by: KALLIE Duloxetine HCl (Cymbalta) 30 mg PO DAILY [facility] Escitalopram Oxalate (Lexapro) 20 mg PO DAILY [facility] Gabapentin (Neurontin) 300 mg PO TID [facility] Last Admin: 05/06/20 23:54 Dose: 300 mg Documented by: KALLIE Levofloxacin (Levaquin) 750 mg in 150 mls @ 100 mls/hr IV Q24H [facility] Last Admin: 05/06/20 23:54 Dose: 100 mls/hr Documented by: KALLIE Sodium Chloride (Normal Saline 0.9%) 250 mls @ 21 mls/hr IV Q24H PRN PRN Reason: Flush Ibuprofen (Advil) 600 mg PO Q6HR PRN PRN Reason: Fever/Mild Pain (1-3) Loratadine (Claritin) 10 mg PO DAILY [facility] Metoclopramide HCl (Reglan) 5 mg PO ACHS [facility] Metoprolol Succinate (Toprol Xl) 25 mg PO BEDTIME [facility] Last Admin: 05/06/20 23:54 Dose: 25 mg Documented by: KALLIE Montelukast Sodium (Singulair) 10 mg PO DAILY [facility] Naloxone HCl (Narcan) 0.2 mg IV Q2MIN PRN PRN Reason: Opiate Reversal Naproxen (Naprosyn) 500 mg PO Q12H PRN PRN Reason: Pain, Mild (1-3) Non-Formulary Medication (Dimenhydrinate [Dramamine]) 25 mg PO Q4H PRN PRN Reason: Nausea Non-Formulary Medication (Eszopiclone) 2 mg PO BEDTIME [facility] Last Admin: 05/06/20 23:54 Dose: Not Given Documented by: KALLIE Non-Formulary Medication (Lactobacillus Acidophilus) 1 tab PO DAILY [facility] Ondansetron HCl (Zofran) 4 mg IV Q8HR PRN PRN Reason: Nausea And Vomiting Ondansetron HCl (Zofran Odt) 4 mg PO Q8HR PRN PRN Reason: Nausea And Vomiting Pantoprazole Sodium (Protonix) 40 mg PO 0600 [facility] Potassium Chloride (Klor-Con M20) 40 meq PO BIDWM [facility] Pseudoephedrine HCl (Pseudoephedrine Hcl) 120 mg PO Q12H PRN PRN Reason: NASAL CONGESTION Sodium Chloride (Normal Saline 0.9% Flush) 10 ml IV PRN PRN PRN Reason: Flush Sodium Chloride (Normal Saline 0.9% Flush) 10 ml IV BID [facility] Trazodone HCl (Desyrel) 100 mg PO BEDTIME [facility] Last Admin: 05/06/20 23:53 Dose: 100 mg Documented by: KALLIE Discontinued Medications Albuterol (Ventolin Hfa (Vent/Covid R/O)) 2 puff INH RTQ4HR PRN PRN Reason: Shortness Of Breath Dicyclomine HCl (Bentyl) 10 mg PO Q6H PRN PRN Reason: Diarrhea Hydralazine HCl (Apresoline) 10 mg IV NOW ONE Stop: 05/06/20 21:55 Last Admin: 05/06/20 22:06 Dose: 10 mg Documented by: LUDY Sodium Chloride (Normal Saline 0.9%) 1,000 mls @ 1,000 mls/hr IV BOLUS ONE Stop: 05/06/20 20:27 Last Infusion: 05/06/20 22:30 Dose: 0 mls/hr Documented by: Admin: 05/06/20 21:12 Dose: 1,000 mls/hr Documented by: LUDY Non-Formulary Medication (Acetaminophen) 650 mg PO Q4H PRN PRN Reason: Pain (Scale Score 1-3) Non-Formulary Medication (Ondansetron Hcl [Zofran]) 4 mg PO Q4HP PRN PRN Reason: Nausea Vital Signs Vital signs: Vital Signs - 8 hr 05/06/20 19:31 05/06/20 19:33 05/06/20 20:00 Temperature 97.8 F Pulse Rate 79 81 79 Respiratory Rate 23 16 27 H Blood Pressure 228/95 H 221/100 H Pulse Oximetry 97 96 96 05/06/20 20:30 05/06/20 21:00 05/06/20 21:10 Temperature Pulse Rate 73 77 77 Respiratory Rate 27 H 26 H 24 Blood Pressure 224/95 H Pulse Oximetry 97 97 97 05/06/20 21:36 05/06/20 21:38 Temperature Pulse Rate 81 83 Respiratory Rate 38 H 27 H Blood Pressure 230/101 H Pulse Oximetry 98 MDM - Weakness Lab Data Result diagrams: 05/06/20 19:37 05/06/20 19:37 Labs: Lab Results 05/06/20 05/06/20 05/06/20 Range/Units 19:37 19:37 19:37 WBC 4.5 (4.5-11.0) X10^3/uL RBC 3.04 L (4.0-5.2) X10^6/uL Hgb 8.7 L (12.0-16.0) g/dL Hct 26.8 L (36-46) % MCV 88.2 (80-100) fL MCH 28.6 (26-34) PG MCHC 32.4 (30-36) % RDW 24.7 H (11.6-14.8) % Plt Count 493 H (150-400) X10^3/uL Neut % (Auto) 50.0 (50-75) % Lymph % (Auto) 37.3 (25-40) % [place] % (Auto) 10.8 (3-14) % Eos % (Auto) 1.1 L (2-4) % Baso % (Auto) 0.8 (0-2) % Neut # (Auto) 2200 (5193-3264) /uL Lymph # (Auto) 1700 (3421-0283) /uL [place] # (Auto) 500 (0-900) /uL Eos # (Auto) 0 (0-450) /uL Baso # (Auto) 0 (0-100) /uL RBC Morphology Not Reportable Anisocytosis 2+ H Sodium 123 L (137-145) mmol/L Potassium 3.5 (3.4-5.1) mmol/L Chloride 89 L (98-107) mmol/L Carbon Dioxide 24 (22-32) mmol/L BUN 7 (7-17) mg/dL Creatinine 0.40 L (0.52-1.04) mg/dL Estimated GFR > 60.0 (>60) mL/min BUN/Creatinine Ratio 17.5 (6-22) Glucose 113 H (80-110) mg/dL Calcium 8.5 (8.4-10.2) mg/dL Magnesium 1.3 L (1.6-2.3) mg/dL Total Bilirubin 0.7 (0.2-1.3) mg/dL AST 38 H (14-36) IU/L ALT 23 (<35) IU/L Alkaline Phosphatase 94 (38-126) U/L Total Creatine Kinase 83 (30-135) U/L CK-MB (CK-2) TNP CK-MB (CK-2) Rel Index TNP Troponin I 0.036 H (0.01-0.034) ng/mL NT-Pro-B Natriuret Pep 37417 H (<125) pg/mL Total Protein 6.6 (6.3-8.2) g/dL Albumin 3.4 L (3.5-5.0) g/dL Globulin 3.2 (1.7-4.1) g/dL Albumin/Globulin Ratio 1.1 (1.0-2.8) Urine RBC (0-5/HPF) Urine WBC (0-5/HPF) Ur Squamous Epith Cells (0-5/HPF) Urine Bacteria (None) Hyaline Casts (None) Ur Culture Indicated? 05/06/20 Range/Units 21:39 WBC (4.5-11.0) X10^3/uL RBC (4.0-5.2) X10^6/uL Hgb (12.0-16.0) g/dL Hct (36-46) % MCV (80-100) fL MCH (26-34) PG MCHC (30-36) % RDW (11.6-14.8) % Plt Count (150-400) X10^3/uL Neut % (Auto) (50-75) % Lymph % (Auto) (25-40) % [place] % (Auto) (3-14) % Eos % (Auto) (2-4) % Baso % (Auto) (0-2) % Neut # (Auto) (5567-6091) /uL Lymph # (Auto) (9783-2122) /uL [place] # (Auto) (0-900) /uL Eos # (Auto) (0-450) /uL Baso # (Auto) (0-100) /uL RBC Morphology Anisocytosis Sodium (137-145) mmol/L Potassium (3.4-5.1) mmol/L Chloride (98-107) mmol/L Carbon Dioxide (22-32) mmol/L BUN (7-17) mg/dL Creatinine (0.52-1.04) mg/dL Estimated GFR (>60) mL/min BUN/Creatinine Ratio (6-22) Glucose (80-110) mg/dL Calcium (8.4-10.2) mg/dL Magnesium (1.6-2.3) mg/dL Total Bilirubin (0.2-1.3) mg/dL AST (14-36) IU/L ALT (<35) IU/L Alkaline Phosphatase (38-126) U/L Total Creatine Kinase (30-135) U/L CK-MB (CK-2) CK-MB (CK-2) Rel Index Troponin I (0.01-0.034) ng/mL NT-Pro-B Natriuret Pep (<125) pg/mL Total Protein (6.3-8.2) g/dL Albumin (3.5-5.0) g/dL Globulin (1.7-4.1) g/dL Albumin/Globulin Ratio (1.0-2.8) Urine RBC 1-5/hpf (0-5/HPF) Urine WBC 1-5/hpf (0-5/HPF) Ur Squamous Epith Cells 1-5 /hpf (0-5/HPF) Urine Bacteria Few (2-10) H (None) Hyaline Casts 1-5/lpf (None) Ur Culture Indicated? Cult not indicated Urine Dip Bedside Urine Glucose Negative Bedside Urine Bilirubin - Negative Bedside Urine Ketone +/- 5 Urine Specific [place] 1.015 Bedside Urine Occult Blood + Bedside Urine pH 6.0 Bedside Urine Protein ++ 100 Bedside Urine Urobilinogen - Negative Bedside Urine Nitrite - Negative Bedside Urine Leukocytes - Negative Esterase Discharge Plan Departure Patient Disposition: Admitted as Observation Clinical Impression: Acute hyponatremia Hypertension Qualifiers: Hypertension type: essential hypertension Qualified Code(s): I10 - Essential (primary) hypertension Discharge Date/Time: 05/06/20 22:35 Referrals: Berhane Mccloud MD [Primary Care Provider] - Admit Date/Time: 05/06/20 21:55 Admit Provider: Danna Gandhi
[2020-05-06] MEDS: SODIUM CHLORIDE 0.9% 1,000 ML 1000 ML IV (21:12)
[2020-05-06 22:00] LABS: Bacteria Urine Few (2-10); Culture Indicated Urine Cult Not Indicated; Hyaline Casts Urine 1-5/LPF; RBC Urine 1-5/HPF (0-5/HPF); Squamous Epithelial Cell Urine 1-5 /HPF (0-5/HPF); WBC Urine 1-5/HPF (0-5/HPF)
[2020-05-06] MEDS: HYDRALAZINE 20 MG/ML VIAL 10 MG IV (22:06)
--- NOTE | 2020-05-06 23:23 | PC.NURSE ---
Pt to room 218 from E.R. pale, tremulous. Assist x 2 to commode for scant amount urine and small formed brown stool. Returned to bed. Requests head of bed elevated to enhance respiratory effort. Reports h/o asthma. Room air 97%. Multiple warm blankets. Bed alarm in place and pt was instructed to call for assistance when needing/desiring out of bed. Pt acknowledges understanding and agreement. Admits to some short term memory loss, but is able to provide needed information for admission minus home medication list. No family present.
[2020-05-06 23:43] LABS: COVID19 -Nasal RAPID Negative (Negative)
[2020-05-06] MEDS: TRAZODONE 50 MG TABLET 100 MG PO (23:53)
[2020-05-06] MEDS: ATORVASTATIN 20 MG TABLET 40 MG PO (23:53)
[2020-05-06] MEDS: METOPROLOL ER 25 MG TABLET PO (23:54)
[2020-05-06] MEDS: levoFLOXacin 750 MG/150 ML PIGGYBACK 100 MG IV (23:54)
[2020-05-06] MEDS: GABAPENTIN 300 MG CAPSULE PO (23:54)
[2020-05-06] MEDS: ALPRAZolam 0.25 MG TABLET PO (23:58)
[2020-05-07] VITALS (11 sets, daily range): BP systolic 122–180; BP diastolic 51–66; PULSE 66–94; RESP 16–18; TEMP 36.2–36.7; O2SAT 91–99
[2020-05-07] MEDS: ALBUTEROL HFA 200 PUFF/18 GM INH (COVID POS/VENT PTS) INH ×2 (00:26→14:26)
--- NOTE | 2020-05-07 01:05 | PC.NURSE ---
Patient is alert and oriented except to day of month. Breath sounds diminished with crackles throughout. Continuous oximetry on and intermittently desats into low 80's so placed on oxygen; patient does state she feels SOB. HRR; telemetry reading was SR. Denies nausea. BT hypoactive. Denies dysuria but states she does use an incontinent brief at night; instructed to call when needing to urinate rather than being incontinent. Is able to reposition with some help from staff. Bilateral calf SCD's applied at shift change. Denies pain. Fall risk score is high and bed alarm is activated.
[2020-05-07 05:48] LABS: Hematocrit 25.2 % (36-46); Mean Corpuscular HGB Conc 31.8 % (30-36); Mean Corpuscular Volume 88.1 fL (80-100); Platelet Count 356 X10^3/uL (150-400); Red Blood Cell Count 2.86 X10^6/uL (4.0-5.2); Red Cell Distribution Width 24.7 % (11.6-14.8); White Blood Cell Count 3.6 X10^3/uL (4.5-11.0)
[2020-05-07 05:54] LABS: Add Manual Diff / Slide Review YES
[2020-05-07 05:55] LABS: Alanine Aminotransferase 17 IU/L (<35); Albumin 2.7 g/dL (3.5-5.0); Alkaline Phosphatase 74 U/L (38-126); Aspartate Aminotransferase 29 IU/L (14-36); BUN Creatinine Ratio 15.7 (6-22); Bilirubin Total 0.5 mg/dL (0.2-1.3); Blood Urea Nitrogen 8 mg/dL (7-17); Calcium 7.7 mg/dL (8.4-10.2); Carbon Dioxide 24 mmol/L (22-32); Chloride 92 mmol/L (98-107); Estimated Glomerular Filt Rate > 60.0 mL/min (>60); Globulin 2.7 g/dL (1.7-4.1); Glucose 106 mg/dL (80-110); HEMOLYSIS < 15 (0-50); Magnesium 1.3 mg/dL (1.6-2.3); Potassium 3.5 mmol/L (3.4-5.1); Sodium 125 mmol/L (137-145); Total Protein 5.4 g/dL (6.3-8.2)
[2020-05-07 06:03] LABS: NT-proBNP (BNP-Adult 18+) 14100 pg/mL (<125)
[2020-05-07 06:05] LABS: Troponin I 0.049 ng/mL (0.01-0.034)
[2020-05-07 06:20] LABS: Neutrophils Absolute Manual 2628 /uL (3000-5900); Total Cells Counted 100
[2020-05-07 06:21] LABS: Anisocytosis 2+; Hypochromasia 1+; Polychromasia 1+
[2020-05-07] MEDS: PANTOPRAZOLE 40 MG TABLET PO (06:25)
--- NOTE | 2020-05-07 08:42 | PM.HP.1 ---
History of Present Illness History of Present Illness Date Patient Seen: 05/07/20 Time Patient Seen: 08:42 Chief complaint: Increased Weakness Narrative: 74 year old female is seen in cross-coverage for Dr. Mccloud secondary to profound generalized weakness x 1 week. Patient was admitted 2 months ago for similar complaint with failure to thrive. At that time, she had multiple electrolyte imbalances including hypokalemia, hypomagnesemia, and hypocalcemia. She also had chronic diarrhea and nausea. EGD/colonoscopy during that admission was reassuring with no abnormal pathology. Medical history also significant for depression, followed by Dr. Perez. is at bedside today and reports that in the last week she has progressively had a steep cognitive decline. On day prior to admission, she could not figure out how to work the remote control for the television. She was so weak that she needed complete assistance when transferring between the bed and the bathroom and between the bed and the chair. reports that her systolic pressures have been running in the 170-180 range and her oxygen saturation has been approximately 90%. Baseline weight 125 pounds, 18 months ago; dropped down to 82 pounds after last hospitalization. She attributes this drop to a poor appetite and lack of intake. I almost never feel hungry. After being discharged, her weight went back up to 93 pounds and she had been maintaining that until 1 week ago. She reports no changes except for starting Lasix 2 days ago. Vital signs upon admission to the ED included a pulse of 79, respirations of 23, blood pressure 220/95, O2 saturation 97% on room air. Repeat respiratory rates remained tachypneic with a range between 23-27. Repeat blood pressure 230/101 after several hours. Workup including chest x-ray, CBC, CMP, magnesium BNP, troponin EKG UA, CPK, CK-MB significant for a normocytic/normochromic anemia with hemoglobin/hematocrit of 8.7/26 8, essentially baseline for this patient in the last 2 months. Sodium 123, baseline 130. Chloride 89, baseline 95-100. Magnesium low at 1.3. BNP elevated at 11,200. Troponin was slightly elevated at 0.036. Denies chest pain or shortness of breath. Chest x-ray showed left pleural effusion with atelectasis, query pneumonia. Patient was administered 1 L of normal saline 10 mg of IV hydralazine before being transferred to the floor. Past medical history: Hypertension Hyperlipidemia History of AL Failure to thrive Protein malnutrition Hypokalemia Pleural effusion Anemia, chronic Asthma, mild Depression and anxiety Chronic diarrhea Past surgical history: Eye surgery D&C x3 Hysterectomy Family history: Father, prostate cancer. Mother, lung cancer Siblings: Diabetes, hypertension, hyperlipidemia Social history: to Noah. 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 Patient History Medical History Acid reflux disease (Acute) Irritable bowel (Acute) Surgical History H/O hysterectomy for benign disease (Acute) History of appendectomy (Acute) Family & Social History Social History: household members spouse,children Prior Living Arrangements House Safety & Behavioral: Feels Safe in Current Yes Environment Been Physically Hurt or No Threatened By a Person Suicidal Ideation Description None Suicide Plan Description No Plan Tobacco & Substance use: Smoking Status Never smoker alcohol intake former alcohol intake frequency holiday/special occasion Substance Use Type does not use Meds Home Medications and Allergies Home Medications Medication Instructions Recorded Confirmed Type atorvastatin [Lipitor] 40 mg PO QDAY #0 tab 06/06/13 05/07/20 History gabapentin [Neurontin] 300 mg PO TID #0 06/06/13 05/07/20 History metoprolol succinate 25 mg PO BID #0 06/06/13 05/07/20 History montelukast [Singulair] 10 mg PO QDAY #0 tab 06/06/13 05/07/20 History Lactobacillus acidophilus 1 tab PO QDAY #0 12/25/16 05/07/20 History albuterol sulfate [Ventolin HFA] 2 puff INHALATION Q4-6H PRN 03/02/20 05/07/20 History escitalopram oxalate 20 mg PO DAILY 03/08/20 05/07/20 History eszopiclone 3 mg PO BEDTIME 03/08/20 05/07/20 History Nexium 20 mg PO BID 05/07/20 05/07/20 History Premarin 0.625 mg PO DAILY 05/07/20 05/07/20 History duloxetine 30 mg PO BEDTIME 05/07/20 05/07/20 History Allergies Allergy/AdvReac Type Severity Reaction Status Date / Time adhesive tape AdvReac Rash Verified 05/06/20 19:33 Review of Systems Review of Systems ROS: Yes All systems reviewed with the patient and are negative except as otherwise documented Exam Vital Signs (past 8 hours): - 05/07/20 05:16 05/07/20 07:18 Temperature 97.1 F L 97.7 F Pulse Rate 73 73 Respiratory Rate 16 17 Blood Pressure 122/51 L 136/63 Pulse Oximetry 98 99 Oxygen Delivery Method Nasal Cannula Oxygen Flow Rate 1 Narrative Exam Narrative: GENERAL: Alert and oriented, appearing stated age and in no acute distress, weak, pale. HEENT: Head normocephalic/atraumatic. Pupils equal, round, and reactive to light and accomodation. Extraocular muscles intact. Tympanic membranes clear. Nasal mucosa moist, septum midline. Oral mucosa moist, no lesions. Neck soft and supple, no lymphadenopathy. LUNGS: Clear to ausculation bilaterally, no wheezes, rhonchi or rales. CV: Normal S1 and S2 with regular rate and rhythm, no audible murmurs, rubs or gallops. ABDOMEN: Soft, non-tender, non-distended, no organomegaly. Positive bowel sounds. EXTREMITIES: No clubbing, cyanosis, or edema. NEURO: Cranial nerves II through XII grossly intact, no focal deficits. PSYCH: Alert and oriented x 3. Sometimes loses track of thought. SKIN: No concerning lesions. Objective Labs Result Diagrams: 05/07/20 05:14 05/07/20 05:14 Labs: Laboratory Results - last 24 hr 05/06/20 05/06/20 05/06/20 19:37 19:37 19:37 WBC 4.5 RBC 3.04 L Hgb 8.7 L Hct 26.8 L MCV 88.2 MCH 28.6 MCHC 32.4 RDW 24.7 H Plt Count 493 H Neut % (Auto) 50.0 Lymph % (Auto) 37.3 [place] % (Auto) 10.8 Eos % (Auto) 1.1 L Baso % (Auto) 0.8 Neut # (Auto) 2200 Lymph # (Auto) 1700 [place] # (Auto) 500 Eos # (Auto) 0 Baso # (Auto) 0 Total Counted Seg Neutrophils % Lymphocytes % (Manual) Monocytes % (Manual) Eosinophils % (Manual) Neutrophils # (Manual) RBC Morphology Not Reportable Polychromasia Hypochromasia Anisocytosis 2+ H Sodium 123 L Potassium 3.5 Chloride 89 L Carbon Dioxide 24 BUN 7 Creatinine 0.40 L Estimated GFR > 60.0 BUN/Creatinine Ratio 17.5 Glucose 113 H Calcium 8.5 Magnesium 1.3 L Total Bilirubin 0.7 AST 38 H ALT 23 Alkaline Phosphatase 94 Total Creatine Kinase 83 CK-MB (CK-2) TNP CK-MB (CK-2) Rel Index TNP Troponin I 0.036 H NT-Pro-B Natriuret Pep 63596 H Total Protein 6.6 Albumin 3.4 L Globulin 3.2 Albumin/Globulin Ratio 1.1 Urine RBC Urine WBC Ur Squamous Epith Cells Urine Bacteria Hyaline Casts Ur Culture Indicated? COVID-19 PCR 05/06/20 05/06/20 05/07/20 21:39 22:20 05:14 WBC 3.6 L RBC 2.86 L Hgb 8.0 L Hct 25.2 L MCV 88.1 MCH 28.0 MCHC 31.8 RDW 24.7 H Plt Count 356 Neut % (Auto) Not Reportable Lymph % (Auto) Not Reportable [place] % (Auto) Not Reportable Eos % (Auto) Not Reportable Baso % (Auto) Not Reportable Neut # (Auto) Lymph # (Auto) Not Reportable [place] # (Auto) Not Reportable Eos # (Auto) Baso # (Auto) Not Reportable Total Counted 100 Seg Neutrophils % 73.0 H Lymphocytes % (Manual) 19.0 L Monocytes % (Manual) 6.0 Eosinophils % (Manual) 2.0 Neutrophils # (Manual) 2628 L RBC Morphology See below Polychromasia 1+ H Hypochromasia 1+ H Anisocytosis 2+ H Sodium Potassium Chloride Carbon Dioxide BUN Creatinine Estimated GFR BUN/Creatinine Ratio Glucose Calcium Magnesium Total Bilirubin AST ALT Alkaline Phosphatase Total Creatine Kinase CK-MB (CK-2) CK-MB (CK-2) Rel Index Troponin I NT-Pro-B Natriuret Pep Total Protein Albumin Globulin Albumin/Globulin Ratio Urine RBC 1-5/hpf Urine WBC 1-5/hpf Ur Squamous Epith Cells 1-5 /hpf Urine Bacteria Few (2-10) H Hyaline Casts 1-5/lpf Ur Culture Indicated? Cult not indicated COVID-19 PCR Negative 05/07/20 05/07/20 05:14 05:14 WBC RBC Hgb Hct MCV MCH MCHC RDW Plt Count Neut % (Auto) Lymph % (Auto) [place] % (Auto) Eos % (Auto) Baso % (Auto) Neut # (Auto) Lymph # (Auto) [place] # (Auto) Eos # (Auto) Baso # (Auto) Total Counted Seg Neutrophils % Lymphocytes % (Manual) Monocytes % (Manual) Eosinophils % (Manual) Neutrophils # (Manual) RBC Morphology Polychromasia Hypochromasia Anisocytosis Sodium 125 L Potassium 3.5 Chloride 92 L Carbon Dioxide 24 BUN 8 Creatinine 0.51 L Estimated GFR > 60.0 BUN/Creatinine Ratio 15.7 Glucose 106 Calcium 7.7 L Magnesium 1.3 L Total Bilirubin 0.5 AST 29 ALT 17 Alkaline Phosphatase 74 Total Creatine Kinase CK-MB (CK-2) CK-MB (CK-2) Rel Index Troponin I 0.049 H NT-Pro-B Natriuret Pep 37027 H Total Protein 5.4 L Albumin 2.7 L Globulin 2.7 Albumin/Globulin Ratio 1.0 Urine RBC Urine WBC Ur Squamous Epith Cells Urine Bacteria Hyaline Casts Ur Culture Indicated? COVID-19 PCR Assessment & Plan Assessment & Plan narrative: 1. Symptomatic hyponatremia, acute on chronic -Baseline sodium 130, 123 upon admission. -Symptoms include weakness, cognitive decline, and tachypnea. PLAN: Will proceed with identifying the etiology of the hyponatremia with urine sodium, urine osmolality, and serum osmolality. Will also fluid restrict in the meantime, TAR <800 cc. Possible need for hypertonic saline as symptoms worsen. Will trend labs in the morning. 2. Failure to thrive, chronic -Patient endorses that she has no appetite. -Has not gotten out of bed for months. -Dr. Perez determined during her last inpatient stay that she was severely depressed, changed her medication. -Work up-to-date for occult causes have been nonrevealing. PLAN: Continue home psych meds and reglan. Consider psychiatric consult if patient is still here on Saturday. 3. Generalized, acute chronic -Multifactorial, secondary to hyponatremia, protein calorie malnutrition, anemia, etc. PLAN: Will treat underlying causes. PT/OT. 4. Protein calorie malnutrition, chronic Please see #2. PLAN: Nutrition consult. 5. Normocytic/normochromic anemia -Possible mixed anemia, had a megaloblastic anemia during last hospitalization. -Worsened by poor nutrition. PLAN: Hematology consult as an outpatient. 6. Left pleural effusion, possible community-acquired pneumonia -CT scan from last admission on 03/08/20 showed moderate pleural effusions, left greater than right with atelectasis in bilateral lungs. Small mediastinal nodes seen. Stable hypodensities in the right and left hepatic lobes, likely benign, also seen. PLAN: Based on CT scan from 2 months ago, patient probably has effusions more than pneumonia but will treat prophylactically with levofloxacin secondary to her high risk status and increase in absolute neutrophils. Will check procalcitonin, if negative, will stop antibiotics. Will also screen for coronavirus. If remainder of workup remains non-diagnostic, may consider a thoracentesis with fluid analysis to determine if patient has a transudate or exudate. 7. Elevated BNP, acute -Markedly elevated, differential diagnosis includes heart failure, AL, pulmonary hypertension, infection, anemia, etc. -Echo on 03/10/20 showed a normal EF. -Troponin I on admission, mildly elevated, 0.036, repeat 0.049. PLAN: Lasix 80 mg IV x 1 now along with 500 cc of NS bolus in the case that this is due to HF; this should provide some benefit to patient's sodium levels as well. Will check 12 lead EKG and trend another troponin. Prophylactic treatment for CAP as described above. BNP in am. 8. Hypokalemia, chronic -3.5 on admission PLAN: Continue home potassium chloride 40 meq PO BID. 9. Hypomagnesemia, acute on chronic -1.3 on admission PLAN: Magnesium 2 g bolus. 10. History of AL and coronary artery disease, rule out AL PLAN: Please see #6. 11. Hypertension, uncontrolled -Worsened in that last week, could be due to underlying AL, pulmonary effusion, infection, hypovolemia, electrolyte derangement, anxiety, etc. -Labile overnight, averaging 140s/80s. PLAN: Workup as noted above, will see if blood pressure improves after fluid bolus, lasix, and electrolyte replacement. Continue home metoprolol, may need to increase dose. 12. Hyperlipidemia, chronic PLAN: Continue home atorvastatin. 13. Asthma, chronic PLAN: Continue home montelukast and albuterol. 14. Depression and anxiety, chronic PLAN: Continue home duloxetine, escitoalopram, eszopiclone. DVT prophylaxis: SCDs GI prophylaxis Nexium 20 mg p.o. b.i.d. Disposition: Anticipate at least 48 hour stay. CODE: Full. Quality VTE Deep Vein Thrombosis/Pulmonary Embolism Present on Admission: No
--- NOTE | 2020-05-07 09:09 | PC.NURSE ---
Addendum entered by Ayde Burnette R.N. 05/07/20 14:58: Patient only voided 30cc and bladder scanned for 70cc. Called Dr. Gandhi and she states that she does not want to do anything at this point as her sodium level is low. She will order another BNP for this evening. Original Note: Patient is pale in color, she is sleepy this am but states that she did sleep well last night. Kelly is thin and frail. She has some abrasions to her lower feet and some bruising. Will be a 1-2 person assist when getting up, patient can be incontinent at times. to bring in patients medication list soon. She is resting comfortably. Fluid restriction confirmed and patient is only allowed 800cc in a 24 hour period. 400cc on days,200cc on evenings, and 200cc on noc shifts.
--- NOTE | 2020-05-07 09:52 | PT.IIE ---
Surgical History (Last Reviewed 05/06/20 @ 21:10 by Ahmet Bartlett DO) H/O hysterectomy for benign disease (Acute) History of appendectomy (Acute) Medical History (Last Reviewed 05/06/20 @ 21:10 by Ahmet Bartlett DO) Acid reflux disease (Acute) Irritable bowel (Acute) Physical Therapy Inpatient Evaluation/Re-Eval M1 PT/OT-IP Prior Functional Status Start: 05/07/20 12:46 Freq: NEEDED Status: Active Protocol: Document 05/07/20 09:52 AB (Rec: 05/07/20 13:02 AB [email or web address]) Medical Review Prior Functional Status Medical History Reviewed Yes Communication able to make needs known Mobility and Gait pt stated that his spouse of spouse's son assist her at home. stated that she is not ambulating much at home but homehealth PT ambulated with her and she is only able to ambulate around her room. stated that she uses a 4WW with transfers and ambulation but occasionally will be able to transfer to her bedside commode without the walker. Activities of Daily Living and IADL's pt has a bath aide that comes in once a week to assist her Social History Household Members spouse,children Living Arrangements House Number of Floors (Floors) 3 or More Floors Number of Stairs To Enter/Railing? has no steps to enter but has 1 flight of steps with R rail ascending to living room and another set of 1 flight with L rail ascending to bedroom level. pt stated that after she was hospitalized last february and she went home, spouse's son carried her up on the steps for her to get to the bedroom Home Environment Standard Height Toilet,Walk in Shower Home Equipment Four Wheel Walker,Bedside Commode,Shower Seat without Backrest,Hand Held Shower,Grab Bars In Shower Additional Social History Comment pt has an adjustable bed with L rail ascending pt lives with spouse but spouse's son lives in the same property ([id number] ) M2 PT-IP Current Condition Start: 05/07/20 12:46 Freq: NEEDED Status: Active Protocol: Document 05/07/20 09:52 AB (Rec: 05/07/20 13:02 AB [email or web address]) Physical Therapy Current Condition Current Condition Evaluation Date 05/07/20 Treatment Diagnosis hyponatremia; generalized weakness Onset Date 05/06/20 M3 PT-IP Subjective Start: 05/07/20 12:46 Freq: NEEDED Status: Active Protocol: Document 05/07/20 09:52 AB (Rec: 05/07/20 13:02 AB [email or web address]) Subjective Physical Therapy Visit Type Type Initial Evaluation Visit Start Time 09:52 Visit Stop Time 10:31 Total Visit Minutes 39 Number of SLOT KEY PERSON Visits 0 Physical Therapy Visit Comments Patient Comments pt is agreeable to do PT Therapy Pain Assessment Pain When Pain Assessed At Rest Pain Present Pain Present Pain Reported Location Neck Scale Used pain scale not stated Description Chronic Pain Management Techniques Re-positioning M4 PT-IP Mobility and Gait Start: 05/07/20 12:46 Freq: NEEDED Status: Active Protocol: Document 05/07/20 09:52 AB (Rec: 05/07/20 13:02 AB [email or web address]) PT-Bed Mobility Assessment Supine to Sit Supine to Sit Minimal Assistance,Head of Bed Elevated,Bedrails Scooting Scooting to Edge of Bed Minimal Assistance PT-Transfer Assessment Sit to and From Stand Sit to and from Stand Moderate Assistance,Maximum Assistance,1 Person Assistance ,Use of Upper Extremities Equipment Transfer Assistive Device Gait Belt,Front Wheeled Walker Orthotic/Prosthetic Devices or Brace: No Transfers Transfer Destination Bedside Commode Transfer Technique Stand Step Pivot Transfer Ability Level of Assist Moderate Assistance,Maximum Assistance,1 Person Assistance ,Use of Upper Extremities Comments Mobility Comments pt completed supine to sit with HOB elevated and use L rail min A. pt has an adjustable bed with L rail at home. pt completed sit to stand mod to max A and max cues using FWW to transfer to bedside commode mod to max A. pt presents with shaking of BLE during standing. completed sit to stand from bedside commode max A and cues and able to take steps ~ 2ft towards the chair using FWW mod to max A. pt agreed to sit up on chair. call light and table placed within reach. Gait Assessment Gait Gait Assistance Required: Moderate Assistance,Maximum Assistance,1 Person Assist Distance (Feet) 2 Able to Maintain Weight Bearing Status Yes During Gait Assistive Devices Assistive Device Gait Belt,Front Wheeled Walker Orthotic/Prosthetic Devices or Brace: No Gait Deviations General Gait Pattern Antalgic,Decreased Stride Length,Decreased Feet Clearance,Flexed Trunk,Step-to Gait Factors Limiting Gait Function Factors Limiting Gait Function Decreased Activity Tolerance, Decreased Strength,Limited Range of Motion,Pain,Poor Balance,Poor Safety Awareness Comments Gait Comments pls refer to mobility section for details PT-Balance Assessment Sitting Balance and Reactions Static Sitting Balance Ability Good Dynamic Sitting Balance Ability Fair Standing Balance and Reactions Static Standing Balance Ability Poor Dynamic Standing Balance Ability Poor Device Used FWW M5 PT-IP Objective Assessments Start: 05/07/20 12:46 Freq: NEEDED Status: Active Protocol: Document 05/07/20 09:52 AB (Rec: 05/07/20 13:02 AB [email or web address]) Orientation Orientation/Cognition Level of Alertness Alert Orientation Name Safety Awareness Decreased Safety Awareness Gross Range of Motion Lower Extremity ROM Assessment Within Functional Limits Strength Lower Extremity Strength Hip 3+/5 Knee 3+/5 Other Assessments Other Other Assessments has increase cervical flexion: forward head posture M6 PT-IP Treatment Start: 05/07/20 12:46 Freq: NEEDED Status: Active Protocol: Document 05/07/20 09:52 AB (Rec: 05/07/20 13:02 AB [email or web address]) Physical Therapy Treatment Education Education Provided Safety M7 PT-IP Assessment and Plan Start: 05/07/20 12:46 Freq: NEEDED Status: Active Protocol: Document 05/07/20 09:52 AB (Rec: 05/07/20 13:02 AB [email or web address]) PT Summary Assessment and Plan Potential Rehabilitation Potential Good Status of Condition at Evaluation Stable Summary Impairments Pain,ROM,Strength,Balance, Coordination,Sensation, Cognition,Bed Mobility, Transfers,Gait,Activity Tolerance Assessment Summary pt requiring mod to max A with mobility. pt plans to go home with family to assist her . will conduct caregiver training if appropriate as well as stair climbing training. will continues to assess progress. Goals Bed Mobility Goal Standby Assistance Transfer Goal Standby Assistance,Front Wheeled Walker,Four Wheeled Walker Gait Goal Standby Assistance,Front Wheel Walker,Four Wheel Walker Gait Distance 50 Other Goals up/down 12 steps min A using L rail + 12 steps using R rail Days to Meet Goals 5 Frequency of Treatment Frequency Of Treatment Once a Day Treatment Plan Physical Therapy Treatment Plan Bed Mobility Training,Transfer Training,Gait Training, Therapeutic Exercise,Balance Retraining,Discharge Planning, Neuromuscular Re-ed, Coordination Retraining Recommendations To Nursing Amount of Assist Needed 1 Person Assist Discharge Recommendations PT Discharge Recommendations Home with 22/04 Assist,Home Health Equipment Needed for Home Before FWW if not safe with 4WW Discharge Transportation Needs at Discharge Private Vehicle
[2020-05-07] MEDS: POTASSIUM CHLORIDE 20 MEQ TAB 40 MEQ PO ×2 (09:56→16:37)
[2020-05-07] MEDS: METOCLOPRAMIDE HCL 5 MG TABLET PO ×3 (09:56→21:05)
[2020-05-07] MEDS: MONTELUKAST 10 MG TABLET PO (09:56)
[2020-05-07] MEDS: DULOXETINE 30 MG CAPSULE PO (09:56)
[2020-05-07] MEDS: GABAPENTIN 300 MG CAPSULE PO ×3 (09:56→21:05)
[2020-05-07] MEDS: LORATADINE 10 MG TABLET PO (09:56)
[2020-05-07] MEDS: ESCITALOPRAM 10 MG TABLET 20 MG PO (09:57)
[2020-05-07] MEDS: SODIUM CHLORIDE 0.9% FLUSH 10 ML IV ×3 (10:02→21:06)
[2020-05-07] MEDS: MAGNESIUM SULFATE 2 GM/50 ML PIGGYBACK IV ×2 (13:15→18:51)
--- NOTE | 2020-05-07 13:19 | CM.DANOTE ---
Discharge Planning/Care Management DCP: assessment: case received, EMR reviewed and spoke with Dr. Gandhi today re POC. Pt was just here in February: 03/07-03/12 and the CM/DCplanning notes from that stay are also reviewed. Pt at that time was d/c'd to home setting with plans for HH, hired caregivers and a referral to Behavioral Health clinic. Met now with pt and her Davey. Introduced self and role. Pt is a 74 year old female who admitted to care of Dr. Blanco late last night. PCP: Dr. Blade Mccloud Payer: Medicare and AARP. Admission status: INPT: confirmed by UR RN Carmen after her discussion with Dr. Blanco. PT and OT are working with pt today. Pt and Davey confirm that [facility] is still seeing pt. Davey confirms RN/PT/CHIEF BUSINESS DEVELOPMENT OFFICER. Davey stated that they did attempt to work with agency [facility] but became discouraged, in part because pt is so very reluctant to have someone in the home and in part because the agency seemed not to be a good fit. Davye said he is still hopeful for a private caregiver as the need is there. Discussed addition of MANAGER OF COMMUNITY RELATIONS to the HH team and both agreed this would be helpful both for planning going forward and for caregiver options that pt will accept. Pt does say she likes her HH team and Davey notes his relief of same but both are aware that this is not a halfway solution. Discussed the referral to Dr. Perez, [facility], made in February. Dr. Perez did come over to see pt in consultation at that time. Davey stated carefully that he very much thought this was still a good idea but that the paperwork was overwhelming for a new pt to start there. I tried to fill it out but we didn't have a lot of the information they wanted and Kelly was tired and did not want to continue this. Pt today does say she would not be opposed to seeing Dr. Perez. Encouraged Davey to call the clinic to see if an appt could be make; perhaps via telemedicine. Pt says this would be so much better as she does not like to leave the house. Davey reports it is also quite difficult to physically get her out of the house. Will also update Dr. Gandhi as she may be able to facilitate a more rapid appt with Dr. Perez, especially as clinic restrictions have eased up in terms of COVID guidelines since February. P: will plan to talk to Dr. Blanco whens she is here tomorrow. Will also followup with [facility] tomorrow, get updated orders and etc. Likely home with HH, spouse and ? appt with Dr. Perez. CM Discharge Assessment Start: 05/07/20 13:17 Freq: Status: Active Protocol: Document 05/07/20 13:17 ITV (Rec: 05/07/20 13:19 ITV [id number]) Discharge Planning Assessment Advance Directives? Yes Advance Directives on File Yes: gave to ED 4 days ago History Provided By Patient,Family Member,Medical Record Has Patient been admitted in last 30 No days? Prior Living Arrangements House Household Members spouse Type of transporation used prior to Relies on Others admit Independent with ADL's No Is patient alert and oriented? Yes Whiteboard Updated in Patient Room with Yes name and ext. # of Auto Mechanics Instructor Review Status In Process
--- NOTE | 2020-05-07 13:40 | OT.IP.EVAL ---
Past Medical History (Last Reviewed 05/06/20 @ 21:10 by Ahmet Bartlett DO) Acid reflux disease (Acute) Irritable bowel (Acute) Surgical History (Last Reviewed 05/06/20 @ 21:10 by Ahmet Bartlett DO) H/O hysterectomy for benign disease (Acute) History of appendectomy (Acute) Occupational Therapy Inpatient Evaluation/Re-Eval M1 PT/OT-IP Prior Functional Status Start: 05/07/20 12:46 Freq: NEEDED Status: Active Protocol: Document 05/07/20 14:45 CGR (Rec: 05/07/20 15:21 CGR [email or web address]) Medical Review Prior Functional Status Medical History Reviewed Yes Communication able to make needs known Mobility and Gait pt stated that her spouse and son assist her at home. stated that she is not ambulating much at home but homehealth PT ambulated with her and she is only able to ambulate around her room. stated that she uses a 4WW with transfers and ambulation but occasionally will be able to transfer to her bedside commode without the walker. Activities of Daily Living and IADL's pt has a bath aide that comes in once a week to assist her. Otherwise, pt dresses in a night gown and brief. Pt was able to dress without assist and toilet without assist. Prior Functional Level (Other details) Pts bedroom is on the 3rd floor. Per pt and , they get assist to get pt up to the 3rd floor where her bedroom suite is and she stays up there. Social History Household Members spouse Living Arrangements House Number of Floors (Floors) 3 or More Floors Number of Stairs To Enter/Railing? Pt has a level entry but then a flight of stairs to the main living area and a flight of stairs to the bedroom area. Home Environment Standard Height Toilet,Walk in Shower Home Equipment Four Wheel Walker,Bedside Commode,Shower Seat with Backrest,Hand Held Shower Employment Status Retired Additional Social History Comment Pt has an adjustable bed and uses the BSC over the toilet during the day and next to the bed at nighttime. M2 OT-IP Current Condition Start: 05/07/20 14:45 Freq: Status: Active Protocol: Document 05/07/20 14:45 CGR (Rec: 05/07/20 15:21 CGR [email or web address]) Occupational Therapy Current Condition Current Condition Evaluation Date 05/07/20 Treatment Diagnosis Hyponatremia, generalized weakness Diagnosis Onset Date 05/06/20 M3 OT- IP Subjective and Pain Start: 05/07/20 14:45 Freq: Status: Active Protocol: Document 05/07/20 14:45 CGR (Rec: 05/07/20 15:21 CGR [email or web address]) OT- Subjective Occupational Therapy Visit Type Type Initial Evaluation Visit Start Time 13:13 Visit Stop Time 13:40 Total Visit Minutes 27 Notes Pt's present throughout session. OT Pain Assessment Pain When Pain Assessed At Rest Pain Present Pain Present Pain Reported Location Neck Scale Used did not rate but stated discomfort Management Techniques Modification of Treatment,Re- positioning M4 OT- IP ADL's Start: 05/07/20 14:45 Freq: Status: Active Protocol: Document 05/07/20 14:45 CGR (Rec: 05/07/20 15:21 CGR [email or web address]) OT [id number] General Evaluation Self-Feeding Ability Independent Comments OT Self-Feeding Comments attempted to see pt earlier in the day when pt eating lunch. No deficits noted. OT ADL-Grooming Comments OT Grooming Comments not performed OT ADL-Oral Care Comments Oral Care Comments not performed OT ADL-Dressing Comments OT Dressing Comments not performed OT ADL-Toileting General Evaluation Toileting Ability Standby Assistance Devices Toileting Assistive Devices Commode Comments OT Toileting Comments pt urinated seated on BSC and was able to perform pericare with set up OT ADL-Bathing Comments OT Bathing Comments not performed M5 OT- IP IADL's Start: 05/07/20 14:45 Freq: Status: Active Protocol: Document 05/07/20 14:45 CGR (Rec: 05/07/20 15:21 CGR [email or web address]) OT-Instrumental Activities of Daily Living Deficits IADL Deficits Identified Deficits Home Safety Awareness Awareness of Need for Assistance at Home Good Awareness Ability to Problem Solve Emergency Unable to Problem Solve Situations Medication Management Medication Management Caregiver Administers Money Management Money Management Caregiver Provides Assistance Meal Preparation Meal Preparation Caregiver Provides Assist Product Development Consultant Product Development Consultant Caregiver Provides Assist Driving Driving Comments Pt does not drive. M6 OT- IP Functional Cognition Start: 05/07/20 14:45 Freq: Status: Active Protocol: Document 05/07/20 14:45 CGR (Rec: 05/07/20 15:21 CGR [email or web address]) Cognitive Factors Limiting Selfcare Function Cognitive Ability Level of Alertness Alert,Confusional State Patient Orientation Name,Age,Birthday,Month,Date, Year,Day of Week,Place, Situation Attention Span Ability Capable of Focused Attention Ability to Follow Commands Able to Follow One Step Commands with Increased Time, Able to Follow One Step Commands with Repetition Cognitive Comments Cognitive Assessment Comments Pt would benefit from formal cog assessment. OT- Vision and Hearing OT- Hearing Assessment OT- Hearing Assessment WFL OT- Vision Assessment Visual Acuity Glasses For Reading Visual Attentiveness WFL Visual Convergence Impaired Vision Assessment Comments pt is unable to perform occular pursuits and displays limited occular mobility. M7 OT- IP Mobility and Balance Start: 05/07/20 14:45 Freq: Status: Active Protocol: Document 05/07/20 14:45 CGR (Rec: 05/07/20 15:21 CGR [email or web address]) OT-Transfer Assessment Sit to and From Stand Sit to and from Stand Moderate Assistance Transfers Transfer Ability Moderate Assistance Technique Transfer Destination Bedside Commode,Chair Transfer Technique Stand Step Pivot Devices Transfer Assistive Devices Gait Belt,Front Wheeled Walker Comments Mobility Comments Pt able to take steps but needs increased assist as she fatigues. OT- Balance Assessment Sitting Balance and Reactions Static Sitting Balance Ability Fair Dynamic Sitting Balance Ability Poor M8 OT- IP Objective Assessments Start: 05/07/20 14:45 Freq: Status: Active Protocol: Document 05/07/20 14:45 CGR (Rec: 05/07/20 15:21 CGR [email or web address]) OT Gross Range of Motion Upper Extremity Range of Motion Assessment Within Functional Limits OT Strength Upper Extremity Strength Assessment Within Functional Limits Comments Strength Comments 3+/5 OT- Coordination Assessment Upper Extremity Finger to Nose Test Within Functional Limits Finger Tapping Test Within Functional Limits OT-Muscle Tone Assessment Muscle Tone WNL Yes OT Sensation Assessment Edema Edema Absent M9 OT- IP Assessment and Plan Start: 05/07/20 14:45 Freq: Status: Active Protocol: Document 05/07/20 14:45 CGR (Rec: 05/07/20 15:21 CGR [email or web address]) OT Summary Assessment and Plan Potential Rehabilitation Potential Fair Analytic Complexity at Evaluation Low Summary OT Impairments Pain,Strength,Balance, Functional Cognition, Functional Mobility,Grooming, Dressing,Toileting,Bathing, Toilet Transfers,Shower Transfers,Activity Tolerance Progress Towards Goals Progressing Toward Goals Assessment Summary Pt presents as a low complexity evaluation. Pt presents with generalized weakness. Pt is limited in her mobility at home and stays in her room most of the time getting assist for all mobility and bathing. Pt will benefit from OT services to address further declines from her baseline. Recommend d/c home with supportive family. Goals Grooming Goal Independent Dressing Goal Independent Toileting Goal Independent Toilet Transfer Goal Independent,Bedside Commode Days to Meet Goals 10 Frequency of Treatment Frequency Of Treatment Once a Day Treatment Plan OT Treatment Plan ADL Training,Functional Cognition Training,Functional Mobility,Patient/Family Education,Discharge Planning Other Treatment Recommendations and Next cog assessment, shower Treatment Focus Discharge Recommendations OT Discharge Recommendations Home with Assistance Other Discharge Recommendations transportation home may be preferable for stretcher to assist with getting pt up to their 3rd floor bedroom . Transportation Needs at Discharge Stretcher/Ambulance
[2020-05-07 13:49] LABS: Sodium Urine Random 17 mmol/L (30-90)
[2020-05-07] MEDS: FUROSEMIDE 100 MG/10 ML VIAL 80 MG IV (16:36)
[2020-05-07] MEDS: SODIUM CHLORIDE 0.9% 1,000 ML 500 ML IV (16:38)
[2020-05-07 17:19] LABS: Creatine Kinase 77 U/L (30-135)
[2020-05-07 17:33] LABS: Troponin I 0.046 ng/mL (0.01-0.034)
[2020-05-07] MEDS: ATORVASTATIN 20 MG TABLET 40 MG PO (21:04)
[2020-05-07] MEDS: METOPROLOL ER 25 MG TABLET PO (21:05)
[2020-05-07] MEDS: TRAZODONE 50 MG TABLET 100 MG PO (21:06)
[2020-05-07] MEDS: ACETAMINOPHEN 325 MG TABLET 650 MG PO (21:07)
[2020-05-08] VITALS: BP 116/40; PULSE 71; RESP 19; TEMP 35.9; O2SAT 97
[2020-05-08] MEDS: levoFLOXacin 750 MG/150 ML PIGGYBACK 100 MG IV (00:13)
[2020-05-08 04:43] VITALS: BP 147/68; PULSE 83; RESP 20; TEMP 36; O2SAT 96
[2020-05-08 06:16] LABS: Add Manual Diff / Slide Review NO; Basophils Absolute Auto 0 /uL (0-100); Basophils Percent Auto 0.1 % (0-2); Eosinophils Absolute Auto 0 /uL (0-450); Eosinophils Percent Auto 0.2 % (2-4); Hematocrit 25.7 % (36-46); Hemoglobin 8.3 g/dL (12.0-16.0); Lymphocytes Absolute Auto 800 /uL (1100-4500); Lymphocytes Percent Auto 17.5 % (25-40); Mean Corpuscular HGB Conc 32.3 % (30-36); Mean Corpuscular Hemoglobin 28.6 PG (26-34); Mean Corpuscular Volume 88.6 fL (80-100); Monocytes Absolute Auto 500 /uL (0-900); Monocytes Percent Auto 11.3 % (3-14); Neutrophils Absolute Auto 3200 /uL (1500-7000); Neutrophils Percent Auto 70.9 % (50-75); Platelet Count 351 X10^3/uL (150-400); Red Cell Distribution Width 24.7 % (11.6-14.8); White Blood Cell Count 4.5 X10^3/uL (4.5-11.0)
[2020-05-08 06:22] LABS: Alanine Aminotransferase 14 IU/L (<35); Albumin 2.9 g/dL (3.5-5.0); Albumin Globulin Ratio 0.9 (1.0-2.8); Alkaline Phosphatase 75 U/L (38-126); Aspartate Aminotransferase 24 IU/L (14-36); BUN Creatinine Ratio 18.5 (6-22); Bilirubin Total 0.4 mg/dL (0.2-1.3); Blood Urea Nitrogen 10 mg/dL (7-17); Calcium 8.2 mg/dL (8.4-10.2); Carbon Dioxide 26 mmol/L (22-32); Chloride 94 mmol/L (98-107); Estimated Glomerular Filt Rate > 60.0 mL/min (>60); Globulin 3.2 g/dL (1.7-4.1); Glucose 110 mg/dL (80-110); HEMOLYSIS 17 (0-50); Magnesium 2.1 mg/dL (1.6-2.3); Potassium 4.9 mmol/L (3.4-5.1); Sodium 125 mmol/L (137-145); Total Protein 6.1 g/dL (6.3-8.2)
[2020-05-08] MEDS: PANTOPRAZOLE 40 MG TABLET PO (06:26)
[2020-05-08] MEDS: ACETAMINOPHEN 325 MG TABLET 650 MG PO ×2 (06:28→15:33)
[2020-05-08 06:30] LABS: NT-proBNP (BNP-Adult 18+) 6720 pg/mL (<125)
[2020-05-08 06:36] LABS: Procalcitonin 0.25 ng/mL (<0.5)
[2020-05-08 06:39] LABS: Anisocytosis 2+; Hypochromasia 2+; Polychromasia 1+
[2020-05-08 07:20] VITALS: BP 167/68; PULSE 81; RESP 16; TEMP 36.6; O2SAT 99
--- NOTE | 2020-05-08 07:40 | DIET.PN ---
Dietary Progress Note 74y F admitted for increased weakness and confusion referred to nutrition for malnutrition screening. Pt last here 2mo ago with nutrition dx of Severe Acute on Chronic PCM. Calorie count was performed during stay finding pt consuming up to 600kcals/d (42% of needs) despite coaching and encouragement. Pt's d/c nutrition goal was to consume three high PRO meals per day and if unable, consume an Ensure Enlive for each missed meal (provided coupons). Pt d/c'd @ 44kg which she appears to have maintained for 2mo. Pt has Adult Failure to Thrive and Severe Acute on Chronic PCM. HT: 154.9cm WT: 44.5kg UBW: 47kg (85% of [place] Body Weight) BMI: 18.5 (severe for age) Labs: Na 125 L MNA: 2 malnourished George: 15 high risk for skin breakdown Nutrition Diagnosis: ongoing Severe Acute on Chronic PCM r/t low appetite and also fear of IBS sx (diarrhea) aeb unintentional weight loss 15% in 6 mo and 7.5% in 3mo, pt consuming <50% EERs in >1mo, BMI 18.5 (severe), chronic cramping diarrhea secondary to IBS, severe muscle and fat wasting throughout c accompanying weakness. Interventions: 1. Pt to receive half portions of general diet order while in hospital c ONS. 2. Home goal plan is to consume three high protein meals per day, if pt cannot consume a meal, it can be replaced with an ONS Ensure Enlive (350kcal, 20g PRO). Diet Order: General EER: 1400 kcal (+350kcal for weight gain), 55g PRO (1.3g/kg per malnutrition) Monitoring/Evaluations: ONS tolerance, POs
[2020-05-08] MEDS: POTASSIUM CHLORIDE 20 MEQ TAB 40 MEQ PO ×2 (08:21→17:31)
--- NOTE | 2020-05-08 08:30 | PC.NURSE ---
Patient repositioned, sitting up in bed. A/Ox4. Denies pain. NC 1 L off for breakfast, patient remains at 95%. Lung sounds clear, diminished, patient denies SOB. Pulses equal bilaterally. Generalized weakness noted, patient confirms feeling weak still. Bowel sounds active x4, non tender, patient reports she is passing flatus. Noted pitting edema bilateral feet. Brief checked, dry. Tele on. SCDs on. IV site is CDI, free of edema/redness, patient is saline locked. Patient understands fluid restriction. Bed alarm on, belongings in reach, patient denies further needs at this time.
[2020-05-08] MEDS: ESCITALOPRAM 10 MG TABLET 20 MG PO (08:36)
[2020-05-08] MEDS: DULOXETINE 30 MG CAPSULE PO (08:36)
[2020-05-08] MEDS: GABAPENTIN 300 MG CAPSULE PO ×3 (08:37→21:55)
[2020-05-08] MEDS: LORATADINE 10 MG TABLET PO (08:37)
[2020-05-08] MEDS: MONTELUKAST 10 MG TABLET PO (08:37)
[2020-05-08] MEDS: SODIUM CHLORIDE 0.9% FLUSH 10 ML IV ×2 (08:38→21:56)
--- NOTE | 2020-05-08 09:00 | P.PN_ITS ---
Subjective Subjective Date Patient Seen: 05/08/20 Time Patient Seen: 09:00 Interval history: Had an uneventful night. Having some pain in her neck and back that is chronic. Physical therapy session happening later this afternoon after ibuprofen. Ongoing fatigue and weakness, needs 1 person assist to ambulate up to the commode. Enjoys the hospital food and did have her favorite meal of turkey and mashed potatoes last night but was not able to complete everything. No nausea or vomiting. Afebrile. Nursing reports no tachypnea overnight. at the bedside, feeling overwhelmed with her care. Concerned about her being able to go home as her condition continues to deteriorate and her needs have increased. He is interested in finding an in- home caregiver, private. In the meantime, would like to have her go to [facility] as he is unable to provide her the 22/04 support that she needs. Exam Vital Signs (past 8 hours): - 05/08/20 04:43 05/08/20 07:20 Temperature 96.8 F L 97.8 F Pulse Rate 83 81 Respiratory Rate 20 16 Blood Pressure 147/68 H 167/68 H Pulse Oximetry 96 99 Oxygen Delivery Method Room Air Oxygen Flow Rate 1 Narrative Exam Narrative: GENERAL: Alert and oriented, appearing stated age and in no acute distress, weak, pale. HEENT: Head normocephalic/atraumatic. Pupils equal, round, and reactive to light and accomodation. Extraocular muscles intact. Tympanic membranes clear. Nasal mucosa moist, septum midline. Oral mucosa moist, no lesions. Neck soft and supple, no lymphadenopathy. LUNGS: Clear to ausculation bilaterally, no wheezes, rhonchi or rales. CV: Normal S1 and S2 with regular rate and rhythm, no audible murmurs, rubs or gallops. ABDOMEN: Soft, non-tender, non-distended, no organomegaly. Positive bowel sounds. EXTREMITIES: No clubbing, cyanosis, or edema. NEURO: Cranial nerves II through XII grossly intact, no focal deficits. PSYCH: Alert and oriented x 3. Sometimes loses track of thought. SKIN: No concerning lesions. Objective Labs Result Diagrams: 05/08/20 05:53 05/08/20 05:53 Labs: Laboratory Results - last 24 hr 05/07/20 05/07/20 05/08/20 13:43 16:58 05:53 WBC 4.5 RBC 2.90 L Hgb 8.3 L Hct 25.7 L MCV 88.6 MCH 28.6 MCHC 32.3 RDW 24.7 H Plt Count 351 Neut % (Auto) 70.9 D Lymph % (Auto) 17.5 L Amador % (Auto) 11.3 Eos % (Auto) 0.2 L Baso % (Auto) 0.1 Neut # (Auto) 3200 Lymph # (Auto) 800 L Amador # (Auto) 500 Eos # (Auto) 0 Baso # (Auto) 0 RBC Morphology See below Polychromasia 1+ H Hypochromasia 2+ H Anisocytosis 2+ H Sodium Potassium Chloride Carbon Dioxide BUN Creatinine Estimated GFR BUN/Creatinine Ratio Glucose Calcium Magnesium Total Bilirubin AST ALT Alkaline Phosphatase Total Creatine Kinase 77 CK-MB (CK-2) TNP CK-MB (CK-2) Rel Index TNP Troponin I 0.046 H NT-Pro-B Natriuret Pep Total Protein Albumin Globulin Albumin/Globulin Ratio Procalcitonin Ur Random Sodium 17 L 05/08/20 05/08/20 05:53 05:53 WBC RBC Hgb Hct MCV MCH MCHC RDW Plt Count Neut % (Auto) Lymph % (Auto) Amador % (Auto) Eos % (Auto) Baso % (Auto) Neut # (Auto) Lymph # (Auto) Amador # (Auto) Eos # (Auto) Baso # (Auto) RBC Morphology Polychromasia Hypochromasia Anisocytosis Sodium 125 L Potassium 4.9 D Chloride 94 L Carbon Dioxide 26 BUN 10 Creatinine 0.54 Estimated GFR > 60.0 BUN/Creatinine Ratio 18.5 Glucose 110 Calcium 8.2 L Magnesium 2.1 Total Bilirubin 0.4 AST 24 ALT 14 Alkaline Phosphatase 75 Total Creatine Kinase CK-MB (CK-2) CK-MB (CK-2) Rel Index Troponin I NT-Pro-B Natriuret Pep 6720 H Total Protein 6.1 L Albumin 2.9 L Globulin 3.2 Albumin/Globulin Ratio 0.9 L Procalcitonin 0.25 Ur Random Sodium Assessment & Plan Assessment & Plan narrative: 1. Symptomatic hyponatremia, acute on chronic, slightly improved -Baseline sodium 130, 123 upon admission, 125 on HD#1 -Symptoms include weakness, cognitive decline, and tachypnea. -Urine sodium 17 (low), urine osmolality and serum osmolality pending. -Suspect that this was exacerbated by severe heart failure. PLAN: While awaiting osmolalities, will continue to fluid restrict, TAR <800 cc (with exception of fluid bolus during lasix administration) and trend labs. 2. Failure to thrive, chronic -Patient endorses that she has no appetite. -Has not gotten out of bed for months. -Dr. Perez determined during her last inpatient stay that she was severely depressed, changed her medication. Has not been able to see him an an outpatient. reports that intake paperwork is burdensome and this has been a barrier to setting up an appointment. -Work up-to-date for occult causes have been nonrevealing. PLAN: Continue home psych meds and reglan. Consider psychiatric consult tomorrow with Dr. Perez. If not possible, will facilitate expedient appointment with Dr. Perez as an outpatient. 3. Generalized weakness, acute on chronic -Multifactorial, secondary to hyponatremia, protein calorie malnutrition, anemia, etc. PLAN: Will treat underlying causes. PT/OT. 4. Protein calorie malnutrition, chronic Please see #2. PLAN: Nutrition consulting. 5. Normocytic/normochromic anemia -Possible mixed anemia, had a megaloblastic anemia during last hospitalization. -Worsened by poor nutrition. PLAN: Hematology consult as an outpatient. 6. Left pleural effusion, etiology unclear -CT scan from last admission on 03/08/20 showed moderate pleural effusions, left greater than right with atelectasis in bilateral lungs. Small mediastinal nodes seen. Stable hypodensities in the right and left hepatic lobes, likely benign, also seen. -Procalcitonin normal at 0.25. -Coronavirus negative. -Troponin negative x 3. PLAN: Based on CT scan from 2 months ago, patient probably has effusions more than pneumonia, procalcitonin negative, will stop levofloxacin. If remainder of workup remains non-diagnostic, may consider a thoracentesis with fluid analysis to determine if patient has a transudate or exudate. May be illustrative from an oncological perspective in this patient with significant weight loss, anemia, and ongoing FTT. Certainly this could be due to her heart failure as well. 7. Elevated BNP likely secondary to heart failure with preserved ejection fraction -Markedly elevated, differential diagnosis includes heart failure, IN, pulmonary hypertension, infection, anemia, etc. -Echo on 03/10/20 showed a normal EF. -Troponin I on admission, mildly elevated, 0.036 --> 0.049 --> 0.046. -BNP on admission 14,100; 6,720 on HD#1 after lasix PLAN: Will repeat Lasix 80 mg IV x 1 now along with another 500 cc of NS bolus as this is likely due to HF. BNP in am. 8. Hypokalemia, chronic -3.5 on admission, 4.9 on HD#1 PLAN: Continue home potassium chloride 40 meq PO BID. 9. Hypomagnesemia, acute on chronic -1.3 on admission, 2.1 on HD#1 -Status post Mg 2 g x 2 PLAN: Magnesium lab in am. 10. Hypoacalcemia, likely secondary to hypomgasemia -Corrected calcium based on albumin WNL. PLAN: Will continue to trend calcium level. 11. History of IN and coronary artery disease -IN has been ruled out. PLAN: Please see #6. 12. Hypertension, uncontrolled -Worsened in the last week, could be due to underlying IN, pulmonary effusion, infection, hypovolemia, electrolyte derangement, anxiety, etc. -Labile, averaging 140s/80s. PLAN: Workup as noted above, blood pressure did improve after fluid bolus, lasix, and electrolyte replacement, will continue to work on this today as heart failure will certainly exacerbate her blood pressure. Continue home metoprolol, may need to increase dose. 12. Hyperlipidemia, chronic PLAN: Continue home atorvastatin. 13. Asthma, chronic PLAN: Continue home montelukast and albuterol. 14. Depression and anxiety, chronic PLAN: Continue home duloxetine, escitoalopram, eszopiclone. DVT prophylaxis: SCDs GI prophylaxis Nexium 20 mg p.o. b.i.d. Disposition: Anticipate discharge to home tomorrow if additional diuresis improves heart failure and sodium levels continue to rise. Discussed transfer to [facility] with discharge planning, they will clarify that with patient and today and hopefully have everything ready for tomorrow. Will faciliate psych appointment with Dr. Perez as an outpatient. Will need close follow-up to track her electrolyte levels including sodium, chloride, magnesium, and calcium. May need hematology consult an an outpatient to further work-up her anemia and check for malignancy. CODE: Full. Quality VTE Deep Vein Thrombosis/Pulmonary Embolism Present on Admission: No
[2020-05-08] MEDS: IBUPROFEN 600 MG TABLET PO (10:25)
[2020-05-08 11:39] VITALS: BP 171/73; PULSE 85; RESP 16; TEMP 36.4; O2SAT 99
[2020-05-08] MEDS: METOCLOPRAMIDE HCL 5 MG TABLET PO ×2 (11:51→17:31)
[2020-05-08] MEDS: SODIUM CHLORIDE 0.9% 500 ML 1000 ML IV (11:51)
[2020-05-08] MEDS: FUROSEMIDE 100 MG/10 ML VIAL 80 MG IV (11:52)
--- NOTE | 2020-05-08 11:59 | PT.IPTN ---
Physical Therapy Treatment Note M2 PT-IP Current Condition Start: 05/07/20 12:46 Freq: NEEDED Status: Active Protocol: Document 05/07/20 09:52 AB (Rec: 05/07/20 13:02 AB [email or web address]) Physical Therapy Current Condition Current Condition Evaluation Date 05/07/20 Treatment Diagnosis hyponatremia; generalized weakness Onset Date 05/06/20 M3 PT-IP Subjective Start: 05/07/20 12:46 Freq: NEEDED Status: Active Protocol: Document 05/08/20 11:40 CLB (Rec: 05/08/20 13:03 CLB [id number]) Subjective Physical Therapy Visit Type Type Treatment Note Visit Start Time 11:40 Visit Stop Time 11:59 Total Visit Minutes 19 Number of PHYSICIAN Visits 1 Physical Therapy Visit Comments Patient Comments pt is agreeable to do PT Therapy Pain Assessment Pain When Pain Assessed At Rest Pain Present Pain Present Pain Reported Location Neck Scale Used pain scale not stated Description Chronic Pain Management Techniques Re-positioning,Timing of Activity with Medications M4 PT-IP Mobility and Gait Start: 05/07/20 12:46 Freq: NEEDED Status: Active Protocol: Document 05/08/20 11:40 CLB (Rec: 05/08/20 13:03 CLB [id number]) PT-Transfer Assessment Sit to and From Stand Sit to and from Stand Minimal Assistance,1 Person Assistance,Use of Upper Extremities Equipment Transfer Assistive Device Gait Belt,Front Wheeled Walker Orthotic/Prosthetic Devices or Brace: No Transfers Transfer Destination Chair Comments Mobility Comments Pt in chair upon arrival, pt's present then left to get lunch. Pt scooted to edge of chair SBA, after cues for hand placement pt able to stand Min A with cues for posture. Pt with decreased LE strength and shaky legs, pt did not think she could take steps but was able to wt shift and perform small marches x10 . Pt then felt she needed to sit down. Pt then performed seated ther ex. Left pt in chair with all needs within reach and RN present. Gait Assessment Comments Gait Comments pls refer to mobility section for details M5 PT-IP Objective Assessments Start: 05/07/20 12:46 Freq: NEEDED Status: Active Protocol: Document 05/07/20 09:52 AB (Rec: 05/07/20 13:02 AB [id number]) Orientation Orientation/Cognition Level of Alertness Alert Orientation Name Safety Awareness Decreased Safety Awareness Gross Range of Motion Lower Extremity ROM Assessment Within Functional Limits Strength Lower Extremity Strength Hip 3+/5 Knee 3+/5 Other Assessments Other Other Assessments has increase cervical flexion: forward head posture M6 PT-IP Treatment Start: 05/07/20 12:46 Freq: NEEDED Status: Active Protocol: Document 05/08/20 11:40 CLB (Rec: 05/08/20 13:03 CLB [id number]) Physical Therapy Treatment Exercises Exercises Ankle Pumps,Gluteal Sets,Quad Sets,Seated Knee Flexion/ Extension Other Treatments Other Treatment Performed standing marches x10 bilaterally, hip add/abd with resistance. M7 PT-IP Assessment and Plan Start: 05/07/20 12:46 Freq: NEEDED Status: Active Protocol: Document 05/08/20 11:40 CLB (Rec: 05/08/20 13:03 CLB [id number]) PT Summary Assessment and Plan Potential Rehabilitation Potential Good Status of Condition at Evaluation Stable Summary Impairments Pain,ROM,Strength,Balance, Coordination,Sensation, Cognition,Bed Mobility, Transfers,Gait,Activity Tolerance Assessment Summary Pt in chair so transfer not performed. Pt stood from chair requiring Min A and perform standing marches then sat and performed seated ther ex. pt unwilling to ambulate. Caregiver training for transfers and stair climbing training if needed. Goals Bed Mobility Goal Standby Assistance Transfer Goal Standby Assistance,Front Wheeled Walker,Four Wheeled Walker Gait Goal Standby Assistance,Front Wheel Walker,Four Wheel Walker Gait Distance 50 Other Goals up/down 12 steps min A using L rail + 12 steps using R rail Days to Meet Goals 5 Frequency of Treatment Frequency Of Treatment Once a Day Treatment Plan Physical Therapy Treatment Plan Bed Mobility Training,Transfer Training,Gait Training, Therapeutic Exercise,Balance Retraining,Discharge Planning, Neuromuscular Re-ed, Coordination Retraining Recommendations To Nursing Amount of Assist Needed 1 Person Assist Discharge Recommendations PT Discharge Recommendations Home with 24/ Assist,Home Health Equipment Needed for Home Before FWW if not safe with 4WW Discharge Transportation Needs at Discharge Private Vehicle
--- NOTE | 2020-05-08 13:49 | CM.DPC ---
Addendum entered by Luz Shukla LPN 05/08/20 14:48: Spoke again with KATT Elder and then met with Davey and pt. KATT is proceeding with the plan for acceptance tomorrow. Their nurse gis instructor will need to see pt in the hospital tomorrow. This is tentatively planned for tomorrow morning but they have not been able to talk with this person yet. Jael has spoken with Davey by phone for further discussion and planning. Davey plans to order a hospital bed and has [facility] contact information. Pt is not on home o2 but does have a home nebulizer: vendor: [employer]. Davey anticipates she may need this. She has been on o2 during this stay. It is currently off but pt is lying quietly in bed. IF she does need this, explained to both of them that the doctor would have pt assessed by RT for home o2 and if pt qualifies, RT would facilitate this in the same way that a d/c to home setting would go. DCPlanner on for tomorrow will be following closely to coordinate all this. Original Note: DCP: continued: spoke with Dr. Gandhi again today after she met with pt and Davey. She reported that pt, with encouragement from Davey, is now considering a stay at [facility]. Pt is agreeable at this point to this. She says she is familiar with the facility as her brother Trevor Serrano is a fpc resident there. Called Davey to discuss this further. He stated that the first choice would always be home with 24 hour caregivers but that he knew this would continue to be very challenging and it may be some time before this could be set up. SNF setting remains an undesireable option. He confirms plan for RAL: said he did not know how to go about this. Explained process and offered to start this now as Dr. Gandhi expects pt may be ready for d/c as early as tomorrow if RAL can be set up. Have spoken now [facility] Jael[facility]KATT and faxed referral info over to Misty/who is currently at the facility. Have included the OT and PT notes as well as cloth hand's progress note. Jael indicated likelihood that they would be able to accept pt. She stated that they could provide some basic furniture until pt had time to get her own items into the facility. She agreed to call Davey on his cell: [phone] for further discussion of the specifics. Dr. Gandhi very much agrees that an appt with Dr. Perez would be helpful and she will contact his to help expedite this. She has also agreed to accept pt when Dr. Mccloud retires. P: d/c to [facility] when pt is stable for d/c and pt has been accepted (? tomorrow or Saturday). Once pt does d/c, [facility] will need to be updated. COVID-19: negative test: 05/06: 0 Test will be good until 05/09: 2199. If pt does not d/c on Wednesday 05/09 another test will need to be done before pt can go to the facility. Will update Davey now. He has just returned to pt's room.
[2020-05-08 15:35] VITALS: BP 170/73; PULSE 90; RESP 18; TEMP 36.2; O2SAT 93
[2020-05-08 19:30] VITALS: BP 192/79; PULSE 93; RESP 18; TEMP 36.4; O2SAT 98
--- NOTE | 2020-05-08 19:41 | PC.NURSE ---
Patient is resting peacefully in bed, Spouse at bedside visiting. Patinet and spouse voice concerns of d/c home or to a SNIF tomorrow. Their thoughts are that given the patient cont. to feel SOB and HTN is still a issue they feel she will end back at the hospital. Their thoughts are that they are not ready to leave at this time and would like to have more time to monitor and re-eval d/c later on.
[2020-05-08] MEDS: METOPROLOL ER 25 MG TABLET PO (21:55)
[2020-05-08] MEDS: ATORVASTATIN 20 MG TABLET 40 MG PO (21:55)
[2020-05-08] MEDS: TRAZODONE 50 MG TABLET 100 MG PO (21:56)
[2020-05-09] VITALS (11 sets, daily range): BP systolic 142–185; BP diastolic 56–81; PULSE 71–98; RESP 14–21; TEMP 35.9–36.8; O2SAT 97–100
[2020-05-09] MEDS: PANTOPRAZOLE 40 MG TABLET PO (06:21)
[2020-05-09 06:25] LABS: Add Manual Diff / Slide Review NO; Basophils Absolute Auto 0 /uL (0-100); Basophils Percent Auto 0.2 % (0-2); Eosinophils Absolute Auto 0 /uL (0-450); Eosinophils Percent Auto 0.4 % (2-4); Hematocrit 26.2 % (36-46); Hemoglobin 8.3 g/dL (12.0-16.0); Lymphocytes Absolute Auto 1200 /uL (1100-4500); Lymphocytes Percent Auto 20.6 % (25-40); Mean Corpuscular HGB Conc 31.8 % (30-36); Mean Corpuscular Hemoglobin 27.8 PG (26-34); Mean Corpuscular Volume 87.7 fL (80-100); Monocytes Absolute Auto 700 /uL (0-900); Monocytes Percent Auto 11.6 % (3-14); Neutrophils Absolute Auto 4100 /uL (1500-7000); Neutrophils Percent Auto 67.2 % (50-75); Platelet Count 422 X10^3/uL (150-400); Red Blood Cell Count 2.99 X10^6/uL (4.0-5.2); Red Cell Distribution Width 24.9 % (11.6-14.8); White Blood Cell Count 6.1 X10^3/uL (4.5-11.0)
[2020-05-09 06:28] LABS: Alanine Aminotransferase 13 IU/L (<35); Albumin 2.9 g/dL (3.5-5.0); Albumin Globulin Ratio 0.9 (1.0-2.8); Alkaline Phosphatase 81 U/L (38-126); Aspartate Aminotransferase 23 IU/L (14-36); BUN Creatinine Ratio 17.6 (6-22); Bilirubin Total 0.5 mg/dL (0.2-1.3); Blood Urea Nitrogen 9 mg/dL (7-17); Calcium 8.8 mg/dL (8.4-10.2); Carbon Dioxide 30 mmol/L (22-32); Chloride 94 mmol/L (98-107); Estimated Glomerular Filt Rate > 60.0 mL/min (>60); Globulin 3.2 g/dL (1.7-4.1); Glucose 107 mg/dL (80-110); HEMOLYSIS < 15 (0-50); Magnesium 1.8 mg/dL (1.6-2.3); Potassium 5.3 mmol/L (3.4-5.1); Sodium 127 mmol/L (137-145); Total Protein 6.1 g/dL (6.3-8.2)
[2020-05-09] MEDS: METOCLOPRAMIDE HCL 10 MG TABLET 5 MG PO ×4 (06:42→20:51)
[2020-05-09 06:57] LABS: NT-proBNP (BNP-Adult 18+) 13000 pg/mL (<125)
[2020-05-09 07:12] LABS: Anisocytosis 2+; Polychromasia 1+
[2020-05-09 07:13] LABS: Hypochromasia 2+
[2020-05-09] MEDS: MONTELUKAST 10 MG TABLET PO (10:35)
[2020-05-09] MEDS: GABAPENTIN 300 MG CAPSULE PO ×3 (10:35→20:51)
[2020-05-09] MEDS: DULOXETINE 30 MG CAPSULE PO (10:35)
[2020-05-09] MEDS: ESCITALOPRAM 10 MG TABLET 20 MG PO (10:35)
[2020-05-09] MEDS: LORATADINE 10 MG TABLET PO (10:35)
[2020-05-09] MEDS: SODIUM CHLORIDE 0.9% FLUSH 10 ML IV ×3 (10:36→21:05)
[2020-05-09] MEDS: ACETAMINOPHEN 325 MG TABLET 650 MG PO (10:38)
--- NOTE | 2020-05-09 11:01 | CM.DPC ---
DCP Cont: Patient was to be discharged to [facility] today. Have been in contact with Jael at [facility]. Shane assessed patient and stated that they could accept. , Davey, is concerned about her going, feels that her blood pressures are not stable, as well as her electrolytes. Also, he stated, he really does not want her to go to [facility], because he can't see her. He had already talked to Jael about staying with her, but stated, I don't want to have to stay here for 6 days in [facility]. Mentioned taking patient home, and he indicated, I have to have caregivers in place. Let him know that patient can't stay here in the hospital waiting for him to get caregivers. Did discuss home health options. is wanting to speak to Dr. Kendall, for he feels that she is not medically stable. Called Dr. Kendall's office, and gave him update on 's concerns regarding blood pressure, and electrolytes. Also let him know that is now not wanting her to go to [facility]. He stated that he will come over at lunch time to look at her numbers, and go from there. P: DCP to continue to follow closely. Patient will most likely go home and can order home health. Asked about respite care for patient, but he is opposed to it. Will touch base with Dr. Kendall after he sees patient. Blanca Small, RN/Construction Project Administrator
--- NOTE | 2020-05-09 13:35 | PM.PN.1 ---
Subjective Subjective Date Patient Seen: 05/09/20 Time Patient Seen: 13:35 Interval history: Patient feeling better today. Still feeling weak but actually better now that she is on oxygen. She feels like the oxygen helps quite a bit. Her pulse ox is 98% she otherwise apparently is doing pretty well. Blood pressures soon poorly controlled but better than on admission. She has no other significant new changes or complaints. No chest pain no shortness of breath Exam Vital Signs (past 8 hours): - 05/09/20 07:38 05/09/20 07:45 05/09/20 09:58 Temperature 96.6 F L Pulse Rate 96 H 93 H Respiratory Rate 20 17 Blood Pressure 181/81 H Pulse Oximetry 98 98 97 Fraction of Inspired Oxygen 28 Oxygen Delivery Method Nasal Cannula Oxygen Flow Rate 1 Narrative Exam Narrative: Alert fatigued appearing female in no acute distress Mucous membranes moist. Lungs are clear. Heart regular rate and rhythm. Abdomen is soft positive bowel sounds scaphoid extremities without cyanosis clubbing edema. Neurologic exam is normal. Psychologically unremarkable. Objective Labs Result Diagrams: 05/09/20 05:34 05/09/20 05:34 Labs: Laboratory Results - last 24 hr 05/09/20 05/09/20 05:34 05:34 WBC 6.1 RBC 2.99 L Hgb 8.3 L Hct 26.2 L MCV 87.7 MCH 27.8 MCHC 31.8 RDW 24.9 H Plt Count 422 H Neut % (Auto) 67.2 Lymph % (Auto) 20.6 L [place] % (Auto) 11.6 Eos % (Auto) 0.4 L Baso % (Auto) 0.2 Neut # (Auto) 4100 Lymph # (Auto) 1200 [place] # (Auto) 700 Eos # (Auto) 0 Baso # (Auto) 0 RBC Morphology See below Polychromasia 1+ H Hypochromasia 2+ H Anisocytosis 2+ H Sodium 127 L Potassium 5.3 H Chloride 94 L Carbon Dioxide 30 BUN 9 Creatinine 0.51 L Estimated GFR > 60.0 BUN/Creatinine Ratio 17.6 Glucose 107 Calcium 8.8 Magnesium 1.8 Total Bilirubin 0.5 AST 23 ALT 13 Alkaline Phosphatase 81 NT-Pro-B Natriuret Pep 64294 H Total Protein 6.1 L Albumin 2.9 L Globulin 3.2 Albumin/Globulin Ratio 0.9 L Assessment & Plan Assessment & Plan narrative: Hyponatremia. Acute on chronic. Probably combination of fluid overload and poor diet. Will continue mild fluid hydration and re-evaluate after fluid restrictions have been in place. Expect will be able to discharge tomorrow. Has been progressing towards normal for her. Will need to follow-up osmolality labs as outpatient with Dr. Mccloud. Failure to thrive. Chronic. Really no significant change question how much of this is related to this and her emotional state but overall she seems to be Diana slightly improved. Still following Dr. ruano. Will see how he does. Outpatient evaluation should be fine. Generalized weakness. Acute on chronic. Stable at this point. Slow improvement. Will need outpatient home health and probably help for . Poorly controlled hypertension. Part of reason she came in. Will double metoprolol and re-evaluate in a.m.. Hypokalemia will give Lasix today and re-evaluate in a.m.. Left pleural effusion. Probably secondary to protein issues. Will follow. Chronic anemia. Hematology outpatient consult. Hypoxia. Probably secondary to fluid overload. Will see how she responds re-evaluate. Will set up for home O2 but at this point I do not think we needed long-term but shortly for the short term. Congestive heart failure. See certainly no significant change. Last echo showed normal EF. Will follow. Disposition. like to bring her home. Will discharge tomorrow if everything stable. No major changes. Set up outpatient home health and oxygen. Will see how things go. Quality VTE Deep Vein Thrombosis/Pulmonary Embolism Present on Admission: No
--- NOTE | 2020-05-09 13:38 | OT.IP.TRT ---
Current Diagnoses Anemia, unspecified (05/06/20) Occupational Therapy Treatment Note M2 OT-IP Current Condition Start: 05/07/20 14:45 Freq: Status: Active Protocol: Document 05/07/20 14:45 CGR (Rec: 05/07/20 15:21 CGR [id number]) Occupational Therapy Current Condition Current Condition Evaluation Date 05/07/20 Treatment Diagnosis Hyponatremia, generalized weakness Diagnosis Onset Date 05/06/20 M3 OT- IP Subjective and Pain Start: 05/07/20 14:45 Freq: Status: Active Protocol: Document 05/09/20 13:37 CGR (Rec: 05/09/20 13:38 CGR [id number]) OT- Subjective Occupational Therapy Visit Type Type Administrative Note Notes Attempted to see pt for OT services. Pt and pt's state discharge home today plans and request to hold on activity to maintain pt's endurance for getting home. No Ot services rendered.
--- NOTE | 2020-05-09 14:07 | CM.DPC ---
DCP Cont: Dr. Kendall removed discharge for today. He stated that he felt that she could stay another day due to blood pressure readings, and labs. He conversed with who is aware that she will be discharged home tomorrow. He is planning on arranging [facility] for home caregivers. Called [facility] and updated them, that discharge will occur tomorrow. She will need a resumption order, and discharge summary sent. Updated physical therapy team on plans. P: DCP to continue to follow. Patient should be able to be discharged home tomorrow with resumption of [facility]. Blanca Small RN/Core Shaper Top
[2020-05-09] MEDS: FUROSEMIDE 20 MG/2 ML VIAL IV (14:09)
[2020-05-09] MEDS: METOPROLOL ER 25 MG TABLET PO ×2 (14:09→20:51)
[2020-05-09 14:36] LABS: Osmolality, Serum 251 mOsmol/kg (280-301)
[2020-05-09 14:36] LABS: Osmolality Urine 407 mOsmol/kg (.)
--- NOTE | 2020-05-09 14:45 | PT.IPTN ---
Current Diagnoses Anemia, unspecified (05/06/20) Physical Therapy Treatment Note M2 PT-IP Current Condition Start: 05/07/20 12:46 Freq: NEEDED Status: Active Protocol: Document 05/07/20 09:52 AB (Rec: 05/07/20 13:02 AB [id number]) Physical Therapy Current Condition Current Condition Evaluation Date 05/07/20 Treatment Diagnosis hyponatremia; generalized weakness Onset Date 05/06/20 M3 PT-IP Subjective Start: 05/07/20 12:46 Freq: NEEDED Status: Active Protocol: Document 05/08/20 11:40 CLB (Rec: 05/08/20 13:03 CLB [id number]) Subjective Physical Therapy Visit Type Type Treatment Note Visit Start Time 11:40 Visit Stop Time 11:59 Total Visit Minutes 19 Number of SIMONIZER Visits 1 Physical Therapy Visit Comments Patient Comments pt is agreeable to do PT Therapy Pain Assessment Pain When Pain Assessed At Rest Pain Present Pain Present Pain Reported Location Neck Scale Used pain scale not stated Description Chronic Pain Management Techniques Re-positioning,Timing of Activity with Medications M4 PT-IP Mobility and Gait Start: 05/07/20 12:46 Freq: NEEDED Status: Active Protocol: Document 05/08/20 11:40 CLB (Rec: 05/08/20 13:03 CLB [id number]) PT-Transfer Assessment Sit to and From Stand Sit to and from Stand Minimal Assistance,1 Person Assistance,Use of Upper Extremities Equipment Transfer Assistive Device Gait Belt,Front Wheeled Walker Orthotic/Prosthetic Devices or Brace: No Transfers Transfer Destination Chair Comments Mobility Comments Pt in chair upon arrival, pt's present then left to get lunch. Pt scooted to edge of chair SBA, after cues for hand placement pt able to stand Min A with cues for posture. Pt with decreased LE strength and shaky legs, pt did not think she could take steps but was able to wt shift and perform small marches x10 . Pt then felt she needed to sit down. Pt then performed seated ther ex. Left pt in chair with all needs within reach and RN present. Gait Assessment Comments Gait Comments pls refer to mobility section for details M5 PT-IP Objective Assessments Start: 05/07/20 12:46 Freq: NEEDED Status: Active Protocol: Document 05/07/20 09:52 AB (Rec: 05/07/20 13:02 AB [id number]) Orientation Orientation/Cognition Level of Alertness Alert Orientation Name Safety Awareness Decreased Safety Awareness Gross Range of Motion Lower Extremity ROM Assessment Within Functional Limits Strength Lower Extremity Strength Hip 3+/5 Knee 3+/5 Other Assessments Other Other Assessments has increase cervical flexion: forward head posture M6 PT-IP Treatment Start: 05/07/20 12:46 Freq: NEEDED Status: Active Protocol: Document 05/08/20 11:40 CLB (Rec: 05/08/20 13:03 CLB [id number]) Physical Therapy Treatment Exercises Exercises Ankle Pumps,Gluteal Sets,Quad Sets,Seated Knee Flexion/ Extension Other Treatments Other Treatment Performed standing marches x10 bilaterally, hip add/abd with resistance. M7 PT-IP Assessment and Plan Start: 05/07/20 12:46 Freq: NEEDED Status: Active Protocol: Document 05/08/20 11:40 CLB (Rec: 05/08/20 13:03 CLB [id number]) PT Summary Assessment and Plan Potential Rehabilitation Potential Good Status of Condition at Evaluation Stable Summary Impairments Pain,ROM,Strength,Balance, Coordination,Sensation, Cognition,Bed Mobility, Transfers,Gait,Activity Tolerance Assessment Summary Pt in chair so transfer not performed. Pt stood from chair requiring Min A and perform standing marches then sat and performed seated ther ex. pt unwilling to ambulate. Caregiver training for transfers and stair climbing training if needed. Goals Bed Mobility Goal Standby Assistance Transfer Goal Standby Assistance,Front Wheeled Walker,Four Wheeled Walker Gait Goal Standby Assistance,Front Wheel Walker,Four Wheel Walker Gait Distance 50 Other Goals up/down 12 steps min A using L rail + 12 steps using R rail Days to Meet Goals 5 Frequency of Treatment Frequency Of Treatment Once a Day Treatment Plan Physical Therapy Treatment Plan Bed Mobility Training,Transfer Training,Gait Training, Therapeutic Exercise,Balance Retraining,Discharge Planning, Neuromuscular Re-ed, Coordination Retraining Recommendations To Nursing Amount of Assist Needed 1 Person Assist Discharge Recommendations PT Discharge Recommendations Home with 22/04 Assist,Home Health Equipment Needed for Home Before FWW if not safe with 4WW Discharge Transportation Needs at Discharge Private Vehicle
[2020-05-09] MEDS: POTASSIUM CHLORIDE 20 MEQ TAB 40 MEQ PO (17:19)
[2020-05-09] MEDS: ATORVASTATIN 20 MG TABLET 40 MG PO (20:51)
[2020-05-09] MEDS: TRAZODONE 50 MG TABLET 100 MG PO (20:52)
--- NOTE | 2020-05-09 22:48 | PC.NURSE ---
Evening shift: Patient lethargic but oriented. Flat affect, poorly motivated. Encouraged to get OOB; sat in chair for dinner. Extremely poor appetite, fluid intake. Declines to feed self. Using brief for urinary incontinence.
[2020-05-10 00:20] VITALS: BP 125/76; PULSE 71; RESP 16; TEMP 36.2; O2SAT 100
[2020-05-10 00:25] VITALS: O2SAT 100
[2020-05-10 04:03] VITALS: BP 114/52; PULSE 74; RESP 16; TEMP 36.1; O2SAT 100
[2020-05-10 06:03] LABS: Add Manual Diff / Slide Review NO; Basophils Absolute Auto 0 /uL (0-100); Basophils Percent Auto 0.4 % (0-2); Eosinophils Absolute Auto 100 /uL (0-450); Eosinophils Percent Auto 0.9 % (2-4); Hematocrit 25.7 % (36-46); Hemoglobin 8.3 g/dL (12.0-16.0); Lymphocytes Absolute Auto 1700 /uL (1100-4500); Lymphocytes Percent Auto 21.3 % (25-40); Mean Corpuscular HGB Conc 32.4 % (30-36); Mean Corpuscular Hemoglobin 28.1 PG (26-34); Mean Corpuscular Volume 86.8 fL (80-100); Monocytes Absolute Auto 1000 /uL (0-900); Neutrophils Absolute Auto 5000 /uL (1500-7000); Neutrophils Percent Auto 64.4 % (50-75); Platelet Count 398 X10^3/uL (150-400); Red Blood Cell Count 2.96 X10^6/uL (4.0-5.2); White Blood Cell Count 7.8 X10^3/uL (4.5-11.0)
[2020-05-10] MEDS: METOCLOPRAMIDE HCL 10 MG TABLET 5 MG PO (06:11)
[2020-05-10] MEDS: PANTOPRAZOLE 40 MG TABLET PO (06:11)
[2020-05-10 06:18] LABS: Anisocytosis 2+; Hypochromasia 2+; Poikilocytosis 1+
[2020-05-10 06:19] LABS: Polychromasia 1+
[2020-05-10 06:20] LABS: Alanine Aminotransferase 10 IU/L (<35); Albumin 2.9 g/dL (3.5-5.0); Alkaline Phosphatase 74 U/L (38-126); Aspartate Aminotransferase 22 IU/L (14-36); BUN Creatinine Ratio 18.6 (6-22); Bilirubin Total 0.6 mg/dL (0.2-1.3); Blood Urea Nitrogen 8 mg/dL (7-17); Calcium 8.6 mg/dL (8.4-10.2); Carbon Dioxide 37 mmol/L (22-32); Chloride 91 mmol/L (98-107); Estimated Glomerular Filt Rate > 60.0 mL/min (>60); Globulin 2.9 g/dL (1.7-4.1); Glucose 101 mg/dL (80-110); HEMOLYSIS < 15 (0-50); Magnesium 1.7 mg/dL (1.6-2.3); Potassium 5.3 mmol/L (3.4-5.1); Sodium 128 mmol/L (137-145); Total Protein 5.8 g/dL (6.3-8.2)
[2020-05-10 06:26] LABS: NT-proBNP (BNP-Adult 18+) 12600 pg/mL (<125)
[2020-05-10 07:45] VITALS: BP 174/78; PULSE 84; RESP 16; TEMP 36.6; O2SAT 100
--- NOTE | 2020-05-10 08:37 | PM.DS.1 ---
History of Present Illness History of Present Illness Date Patient Seen: 05/10/20 Time Patient Seen: 08:37 Date of Onset of Symptoms: 05/02/20 Chief complaint: Increased Weakness Narrative: See history and physical dictated by Dr. Gandhi Discharge Providers Provider Date of admission: 05/06/20 21:55 Discharge Date: 05/10/20 Primary care physician: Berhane Mccloud MD Consults: 05/06/20 22:42 Consult to Discharge Planning Routine Comment: Consult to Occupational Therapy Evaluate & Treat Comment: Physician Instructions: Evaluate and treat Consult to Physical Therapy Evaluate & Treat Comment: Physician Instructions: Evaluate and Treat 05/06/20 23:11 Consult to Dietitian, Adult Routine Comment: Reason For Exam: weight loss 05/07/20 17:40 Consult to Dietitian, Adult Routine Comment: Reason For Exam: protein calorie malnutrition, anemia 05/09/20 08:25 Consult to Respiratory Therapy Evaluate & Treat Comment: please set up home oxygen Physician Instructions: Evaluate and treat 05/10/20 08:33 Consult to Home Health Routine Comment: Reason For Exam: Resume Home Health Nursing, P.T. Discharge provider: Thai Kendall MD Summary Hospital Course Discharge Diagnosis: Hyponatremia Hyperkalemia Hypokalemia Generalized weakness Poorly controlled hypertension Left pleural effusion Chronic anemia Hypoxia Congestive heart failure Hospital Course: Hyponatremia. Patient acute on chronic. Patient presents with hyponatremia. [place] to be symptomatic. Unclear etiology. No evidence of infection. No evidence of significant pulmonary compromise. No significant central change. Probably secondary to her intake and her p.o. intake. Patient was placed on some fluid hydration and Lasix and slowly has improved. Patient almost back to baseline. Symptomatic Diana much improved. No other change. Will follow. Failure to thrive. Probably the biggest issue. Patient is walking on a very thin physical line. Any small change and she nahid over the edge. With increased weakness and appetite change. Patient has very very very little reserve. Had been slowly improving but I think clearly we are back at a point where were having more difficulty. Much of this is mental will have to see how things go. Will follow-up with Dr. ruano on discharge. Poorly controlled hypertension. Probably a significant contributor. Had metoprolol increased and was trending downward. Will follow as outpatient. Left pleural effusion actually seems to be smaller. Etiology is unclear. No other changes. Was felt to be secondary to protein and nutritional deficiency. Has not had any change. No evidence of infection. [place]. No further treatment. Hypoxia. Etiology is unclear. May need pulmonary consult. Could be some contributor. Could be relating to her asthma. No evidence of infection. I believe that a lot of this has to do with her her lack of mobilization and atelectasis. Discussed importance of pulmonary toilet and deep breaths. Will see how she does. Congestive heart failure. Previous echo did not show significant abnormality. Lasix was given will follow. Hypokalemia. Patient was initially hypokalemic. Was placed on replacement. Actually got to be hyperkalemia and will discharge on no replacement period and follow when 1 week. Chronic anemia stable Disposition. Patient will be sent home with home health oxygen and who will be getting a final inspector balance wheel. I think she is high risk for recurrence admission but I do not think there is anything we can change at this time. If she has a very frail individual who has multiple issues most importantly her mental status which is making this difficult. Hopefully psychiatry can help without period but has been a 20 year process. Status at Discharge Cognitive/behavioral status at discharge: oriented Functional status at discharge: uses cane/walker Overall status at discharge: patient is progressing back to baseline Time Spent with Patient Time spent: Greater than 30 minutes Exam Vital Signs (past 8 hours): - 05/10/20 04:03 05/10/20 07:45 Temperature 96.9 F L 97.8 F Pulse Rate 74 84 Respiratory Rate 16 16 Blood Pressure 114/52 L 174/78 H Pulse Oximetry 100 100 Fraction of Inspired Oxygen 28 Oxygen Delivery Method Nasal Cannula Oxygen Flow Rate 1 Narrative Exam Narrative: Alert elderly female much more alert and in approved strength. Mucous membranes moist. Neck supple without adenopathy. Lungs are clear. Heart regular rate and rhythm. Abdomen is soft positive bowel sounds nontender. Extremities without cyanosis clubbing edema. Neurologic exam is nonfocal. 4+ strength in extremities. Psychologically flat affect but otherwise unremarkable Objective Labs Result Diagrams: 05/10/20 05:35 05/10/20 05:35 Labs: Laboratory Results - last 24 hr 05/07/20 05/07/20 05/10/20 05:14 15:30 05:35 WBC 7.8 RBC 2.96 L Hgb 8.3 L Hct 25.7 L MCV 86.8 MCH 28.1 MCHC 32.4 RDW 25.0 H Plt Count 398 Neut % (Auto) 64.4 Lymph % (Auto) 21.3 L [place] % (Auto) 13.0 Eos % (Auto) 0.9 L Baso % (Auto) 0.4 Neut # (Auto) 5000 Lymph # (Auto) 1700 [place] # (Auto) 1000 H Eos # (Auto) 100 Baso # (Auto) 0 RBC Morphology See below Polychromasia 1+ H Hypochromasia 2+ H Poikilocytosis 1+ H Anisocytosis 2+ H Sodium Potassium Chloride Carbon Dioxide BUN Creatinine Estimated GFR BUN/Creatinine Ratio Glucose Serum Osmolality 251 L Calcium Magnesium Total Bilirubin AST ALT Alkaline Phosphatase NT-Pro-B Natriuret Pep Total Protein Albumin Globulin Albumin/Globulin Ratio Urine Osmolality 407 05/10/20 05:35 WBC RBC Hgb Hct MCV MCH MCHC RDW Plt Count Neut % (Auto) Lymph % (Auto) [place] % (Auto) Eos % (Auto) Baso % (Auto) Neut # (Auto) Lymph # (Auto) [place] # (Auto) Eos # (Auto) Baso # (Auto) RBC Morphology Polychromasia Hypochromasia Poikilocytosis Anisocytosis Sodium 128 L Potassium 5.3 H Chloride 91 L Carbon Dioxide 37 H BUN 8 Creatinine 0.43 L Estimated GFR > 60.0 BUN/Creatinine Ratio 18.6 Glucose 101 Serum Osmolality Calcium 8.6 Magnesium 1.7 Total Bilirubin 0.6 AST 22 ALT 10 Alkaline Phosphatase 74 NT-Pro-B Natriuret Pep 66397 H Total Protein 5.8 L Albumin 2.9 L Globulin 2.9 Albumin/Globulin Ratio 1.0 Urine Osmolality Discharge Assessment & Plan Assessment and Plan Assessment: See above Plan of Treatment: Discharge to home Discharge Plan Discharge Plan Patient Disposition: Home Discharge comment: will have home health Discharge orders & Medications Prescriptions: Continued metoprolol succinate tablet 25 mg PO BID Qty: 0 RF: 0 atorvastatin [Lipitor] 20 MG tablet 40 mg PO QDAY Qty: 0 RF: 0 gabapentin [Neurontin] 300 MG capsule 300 mg PO TID Qty: 0 RF: 0 montelukast [Singulair] 10 MG tablet 10 mg PO QDAY Qty: 0 RF: 0 Lactobacillus acidophilus 1 EACH capsule 1 tab PO QDAY Qty: 0 RF: 0 albuterol sulfate [Ventolin HFA] 90 mcg/actuation Hfa Aerosol Inhaler 2 puff INHALATION Q4-6H PRN (Reason: Shortness Of Breath) RF: 0 Premarin 0.625 mg PO DAILY RF: 0 Nexium 20 mg PO BID RF: 0 duloxetine 30 mg PO BEDTIME RF: 0 escitalopram oxalate 20 mg tablet 20 mg PO DAILY RF: 0 eszopiclone 2 mg Tablet 3 mg PO BEDTIME RF: 0 Follow up/Referrals: Berhane Mccloud MD [Primary Care Provider] - 05/18/20 11:15 am (appt:05/18 @ 11:[address] mccloud ) Discharge Health Status Multidrug resistant organism: No MDRO Diet/Activity/Treatments Diet: Diet as Tolerated Oxygen: 2 liter by nasal canula Skin/Wound/Dressing Care Report to your healthcare provider any signs of infection, such as:: chills, fever, night sweats, increased pain and unusual redness Visit Report/Discharge Packet Visit Report Forms: Patient Portal/API, Stroke Signs & Symptoms Discharge Data Primary Care Provider: Brehane Mccloud Quality VTE Deep Vein Thrombosis/Pulmonary Embolism Present on Admission: No
[2020-05-10] MEDS: POTASSIUM CHLORIDE 20 MEQ TAB 40 MEQ PO (08:58)
[2020-05-10 08:59] VITALS: BP 174/78
[2020-05-10] MEDS: GABAPENTIN 300 MG CAPSULE PO (08:59)
[2020-05-10] MEDS: METOPROLOL ER 25 MG TABLET PO (08:59)
[2020-05-10] MEDS: DULOXETINE 30 MG CAPSULE PO (08:59)
[2020-05-10] MEDS: LORATADINE 10 MG TABLET PO (08:59)
[2020-05-10] MEDS: MONTELUKAST 10 MG TABLET PO (08:59)
[2020-05-10] MEDS: SODIUM CHLORIDE 0.9% FLUSH 10 ML IV (09:00)
[2020-05-10] MEDS: ESCITALOPRAM 10 MG TABLET 20 MG PO (09:01)
--- NOTE | 2020-05-10 09:57 | PC.NURSE ---
Addendum entered by Rosey Dumont R.N. 05/10/20 12:35: Discharge: Home O2 all set up, patient and made aware that Stefania should be out to their house about 1600 today. Resuming HH. All personal belongings collected and sent with patient, wheeled out to private vehicle by nursing staff. Original Note: Pt sitting up in bed with Spouse at the bedside. Pt states she feels ready to go home. Went over d/c instructions with Pt and Spouse-discussed d/c meds, time of last dose, reviewed stroke education, and discussed follow up. Pt and Spouse denied further question and Pt is ready to be taken out via w/c by [employer] after she is dressed and packed up. O.T. is assisting with dressing Pt.
--- NOTE | 2020-05-10 09:58 | OT.IP.TRT ---
Current Diagnoses Anemia, unspecified (05/06/20) Occupational Therapy Treatment Note M2 OT-IP Current Condition Start: 05/07/20 14:45 Freq: Status: Active Protocol: Document 05/07/20 14:45 [facility] (Rec: 05/07/20 15:21 [facility] [email or web address]) Occupational Therapy Current Condition Current Condition Evaluation Date 05/07/20 Treatment Diagnosis Hyponatremia, generalized weakness Diagnosis Onset Date 05/06/20 M3 OT- IP Subjective and Pain Start: 05/07/20 14:45 Freq: Status: Active Protocol: Document 05/10/20 10:19 [facility] (Rec: 05/10/20 10:31 [facility] [id number]) OT- Subjective Occupational Therapy Visit Type Type Treatment Note Visit Start Time 09:58 Visit Stop Time 10:15 Total Visit Minutes 17 Occupational Therapy Visit Comments Patient Comments Pt's in the room but not wanting to actively do caregiver training and states, I will just watch. Patient/Caregiver Goals TO go home. OT Pain Assessment Pain When Pain Assessed At Rest Pain Present Pain Present Denied Pain M4 OT- IP ADL's Start: 05/07/20 14:45 Freq: Status: Active Protocol: Document 05/10/20 10:19 [facility] (Rec: 05/10/20 10:31 [facility] [id number]) OT ADL-Grooming General Evaluation Grooming Ability Standby Assistance Areas Needing Assistance Retrieving/Set-up of Grooming Items Comments OT Grooming Comments CGA FWW while standing. OT ADL-Dressing General Eval Upper Body Dressing Ability Standby Assistance Lower Body Dressing Ability Maximum Assistance Comments OT Dressing Comments Assist to help thread pants over her feet and assist to get up over her hips as pt having to hold to FWW for her balance. OT ADL-Toileting General Evaluation Toileting Ability Moderate Assistance Areas Needing Assistance Manage Clothing Comments OT Toileting Comments vc for completeness, MODA to pull up brief over her hips. OT ADL-Bathing Comments OT Bathing Comments Pt refused and not wanting to shower at this time. M5 OT- IP IADL's Start: 05/07/20 14:45 Freq: Status: Active Protocol: Document 05/07/20 14:45 [facility] (Rec: 05/07/20 15:21 [facility] [email or web address]) OT-Instrumental Activities of Daily Living Deficits IADL Deficits Identified Deficits Home Safety Awareness Awareness of Need for Assistance at Home Good Awareness Ability to Problem Solve Emergency Unable to Problem Solve Situations Medication Management Medication Management Caregiver Administers Money Management Money Management Caregiver Provides Assistance Meal Preparation Meal Preparation Caregiver Provides Assist Yard Cleaner Yard Cleaner Caregiver Provides Assist Driving Driving Comments Pt does not drive. M6 OT- IP Functional Cognition Start: 05/07/20 14:45 Freq: Status: Active Protocol: Document 05/10/20 10:19 [facility] (Rec: 05/10/20 10:31 [facility] [id number]) Cognitive Factors Limiting Selfcare Function Cognitive Comments Cognitive Assessment Comments Pt needing step by step instructions to help sequence through task of toileting and dressing needs. M7 OT- IP Mobility and Balance Start: 05/07/20 14:45 Freq: Status: Active Protocol: Document 05/10/20 10:19 [facility] (Rec: 05/10/20 10:31 [facility] [id number]) OT- Bed Mobility Assessment Supine to Sit Supine to Sit Assist Minimal Assistance OT-Transfer Assessment Sit to and From Stand Sit to and from Stand Minimal Assistance,Moderate Assistance Transfers Transfer Ability Minimal Assistance,Moderate Assistance Technique Transfer Destination Bed,Chair,Toilet Devices Transfer Assistive Devices Gait Belt,Front Wheeled Walker Comments Mobility Comments Educated pt's how to florencio/doff belt and emphasized to use on the pt as very unsteady on her feet and best to hold to gait belt versus pt 's arm. In addition showed pt 's at times have to hold pt and guide FWW and okay to switch hands and positioning on the gait belt depending on the situation. Pt's insists that they do not want any stair training as he and family member will just carry up the steps. OT- Balance Assessment Sitting Balance and Reactions Static Sitting Balance Ability Good Dynamic Sitting Balance Ability Fair Standing Balance and Reactions Static Standing Balance Ability Poor M8 OT- IP Objective Assessments Start: 05/07/20 14:45 Freq: Status: Active Protocol: Document 05/07/20 14:45 [facility] (Rec: 05/07/20 15:21 [facility] [email or web address]) OT Gross Range of Motion Upper Extremity Range of Motion Assessment Within Functional Limits OT Strength Upper Extremity Strength Assessment Within Functional Limits Comments Strength Comments 3+/5 OT- Coordination Assessment Upper Extremity Finger to Nose Test Within Functional Limits Finger Tapping Test Within Functional Limits OT-Muscle Tone Assessment Muscle Tone WNL Yes OT Sensation Assessment Edema Edema Absent M9 OT- IP Assessment and Plan Start: 05/07/20 14:45 Freq: Status: Active Protocol: Document 05/10/20 10:19 [facility] (Rec: 05/10/20 10:31 [facility] [id number]) OT Summary Assessment and Plan Potential Rehabilitation Potential Fair Analytic Complexity at Evaluation Low Summary OT Impairments Pain,Strength,Balance, Functional Cognition, Functional Mobility,Grooming, Dressing,Toileting,Bathing, Toilet Transfers,Shower Transfers,Activity Tolerance Progress Towards Goals Progressing Toward Goals Assessment Summary Pt able to participate in bed mobility , dressing, and toileting and looking to go home. Pt's present for caregiver training but not wanting to be hands on at this time and would rather watch. Pt will need assist/ supervision during all waking hours and would benefit from home health. Goals Grooming Goal Independent Dressing Goal Independent Toileting Goal Independent Toilet Transfer Goal Independent,Bedside Commode Days to Meet Goals 9 Frequency of Treatment Frequency Of Treatment Once a Day Treatment Plan OT Treatment Plan ADL Training,Functional Cognition Training,Functional Mobility,Patient/Family Education,Discharge Planning Discharge Recommendations OT Discharge Recommendations Home with Assistance Other Discharge Recommendations assist during waking hours Transportation Needs at Discharge Private Vehicle
--- NOTE | 2020-05-10 10:19 | PT-IP ANOTE ---
Pt and refused PT treatment this morning as they are anticipating d/c this morning. states he and his son carry pt up stairs to enter home.
[2020-05-10 10:37] VITALS: BP 142/94; PULSE 95
--- NOTE | 2020-05-10 11:21 | CM.DPC ---
DCP cont: Faxed order to resume home health and discharge summary to [facility] at fax # [phone]. Fax confirmation scanned in. Yuli Pinto, Care Spiral [employer]ner
== END 2020-05-10 12:39 | disposition home health service (06) | DRG 640 ==
LOC: ED 21:51 → AC 05-07 12:22
PROVIDERS: Admitting Provider Student in an Organized Health Care Education/Training Program; Emergency Provider Emergency Medicine; PCP Family Medicine; Referring Provider Family Medicine; Visit Provider Student in an Organized Health Care Education/Training Program
DX: E87.1 Hypo-osmolality and hyponatremia (principal); E43 Unspecified severe protein-calorie malnutrition; Z68.1 Body mass index [BMI] 19.9 or less, adult; J90 Pleural effusion, not elsewhere classified; C64.9 Malignant neoplasm of unspecified kidney, except renal pelvis; R62.7 Adult failure to thrive; D64.9 Anemia, unspecified; E87.6 Hypokalemia; E83.42 Hypomagnesemia; I25.10 Atherosclerotic heart disease of native coronary artery without angina pectoris; I10 Essential (primary) hypertension; E78.5 Hyperlipidemia, unspecified; J45.909 Unspecified asthma, uncomplicated; F32.9 Major depressive disorder, single episode, unspecified; F41.9 Anxiety disorder, unspecified; R53.1 Weakness; E83.51 Hypocalcemia; R09.02 Hypoxemia; E87.70 Fluid overload, unspecified
CPT/HCPCS: 36415; 36592; 71045; 80053; 81003; 81015; 82550; 83735; 83880; 83930; 83935; 84145; 84300; 84484; 85025; 87635; 93005; 94618; 94640; 94762; 96361; 96374; 97110; 97161; 97165; 97530; 97535; 99284; A9270; J0360; J1940; J1956

== ENCOUNTER → 2020-05-26 09:02 | Outpatient (ROUT) | payer MEDICARE, SELFPAY ==
[2020-05-06 23:01] VITALS: BMI 17.7
[2020-05-26 09:22] LABS: BUN Creatinine Ratio 14.6 (6-22); Blood Urea Nitrogen 6 mg/dL (7-17); Calcium 8.7 mg/dL (8.4-10.2); Carbon Dioxide 30 mmol/L (22-32); Chloride 97 mmol/L (98-107); Estimated Glomerular Filt Rate > 60.0 mL/min (>60); Glucose 87 mg/dL (80-110); HEMOLYSIS < 15 (0-50); Potassium 3.7 mmol/L (3.4-5.1); Sodium 130 mmol/L (137-145); Uric Acid 2.6 mg/dL (2.5-6.2)
[2020-05-26 09:53] LABS: Thyroid Stimulating Hormone 4.57 uIU/mL (0.47-4.68)
[2020-06-01 20:25] LABS: Cortisol, Saliva 1 sample 0.246 ug/dL (.)
== END ==
PROVIDERS: PCP Family Medicine; Visit Provider Student in an Organized Health Care Education/Training Program
DX: E43 Unspecified severe protein-calorie malnutrition (principal); R62.7 Adult failure to thrive; E03.9 Hypothyroidism, unspecified; M10.9 Gout, unspecified
CPT/HCPCS: 80048; 82533; 84443; 84550

== ENCOUNTER 2020-05-28 16:12 | Inpatient (IN) | payer MEDICARE, SELFPAY ==
[2020-05-06 23:01] VITALS: BMI 17.7
[2020-05-28] VITALS (29 sets, daily range): BP systolic 125–240; BP diastolic 59–103; PULSE 73–89; RESP 11–37; TEMP 36.5–36.7; O2SAT 90–100; BMI 16.3
[2020-05-28 17:38] LABS: Hemoglobin 8.5 g/dL (12.0-16.0); Mean Corpuscular HGB Conc 31.4 % (30-36); Mean Corpuscular Hemoglobin 26.3 PG (26-34); Mean Corpuscular Volume 83.7 fL (80-100); Platelet Count 632 X10^3/uL (150-400); Red Blood Cell Count 3.22 X10^6/uL (4.0-5.2); Red Cell Distribution Width 24.6 % (11.6-14.8); White Blood Cell Count 5.9 X10^3/uL (4.5-11.0)
[2020-05-28 17:40] LABS: Add Manual Diff / Slide Review YES
[2020-05-28 17:44] LABS: Alanine Aminotransferase 7 IU/L (<35); Albumin 3.8 g/dL (3.5-5.0); Albumin Globulin Ratio 1.1 (1.0-2.8); Alkaline Phosphatase 90 U/L (38-126); Aspartate Aminotransferase 20 IU/L (14-36); BUN Creatinine Ratio 21.2 (6-22); Bilirubin Total 0.7 mg/dL (0.2-1.3); Blood Urea Nitrogen 7 mg/dL (7-17); Carbon Dioxide 26 mmol/L (22-32); Chloride 94 mmol/L (98-107); Estimated Glomerular Filt Rate > 60.0 mL/min (>60); Globulin 3.6 g/dL (1.7-4.1); Glucose 110 mg/dL (80-110); HEMOLYSIS < 15 (0-50); Magnesium 1.6 mg/dL (1.6-2.3); Phosphorous 3.9 mg/dL (2.8-4.1); Sodium 129 mmol/L (137-145); Total Protein 7.4 g/dL (6.3-8.2)
[2020-05-28] MEDS: SODIUM CHLORIDE 0.9% 1,000 ML 150 ML IV (18:02)
[2020-05-28] MEDS: NICARDIPINE 25 MG in SODIUM CHLORIDE 0.9% 240 ML 50 ML IV (18:02)
--- NOTE | 2020-05-28 18:30 | PC.NURSE ---
BP had large decrease after start of Nicardipine. Pt now c/o stomach cramps and requesting Bentyl. Nicaripine decreased by half.
--- NOTE | 2020-05-28 19:11 | ED.GENADULT ---
HPI - General Adult General Chief complaint: Hypertension Stated complaint: Confusion Time Seen by Provider: 05/28/20 16:40 Source: family () and EMS Mode of arrival: EMS Limitations: altered mental status History of Present Illness HPI narrative: Patient is a 74-year-old female brought into the emergency department by EMS for concerns of altered mental status and high blood pressure. Patient is here with her in provided all of the HPI. Patient is unable to provide any information. Patient's states that over the past 24 hours she has become more confused. Patient's is also concerned about her not having Bentyl for the past day and was adamant that she receive some here in the emergency department for her IBS. No reported trauma. Patient has had issues with electrolytes in the past. Has also had problems with uncontrolled blood pressure. Related Data Home Medications Medication Instructions Recorded Confirmed atorvastatin [Lipitor] 40 mg PO QDAY #0 tab 06/06/13 05/28/20 gabapentin [Neurontin] 300 mg PO TID #0 06/06/13 05/28/20 metoprolol succinate 75 mg PO BID #0 06/06/13 05/28/20 montelukast [Singulair] 10 mg PO QDAY #0 tab 06/06/13 05/28/20 Lactobacillus acidophilus 1 tab PO QDAY #0 12/25/16 05/28/20 albuterol sulfate [Ventolin HFA] 2 puff INHALATION Q4-6H PRN 03/02/20 05/28/20 escitalopram oxalate 20 mg PO DAILY 03/08/20 05/28/20 eszopiclone 3 mg PO BEDTIME 03/08/20 05/28/20 Nexium 20 mg PO BID 05/07/20 05/28/20 Premarin 0.625 mg PO DAILY 05/07/20 05/28/20 duloxetine 30 mg PO BEDTIME 05/07/20 05/28/20 Allergies Allergy/AdvReac Type Severity Reaction Status Date / Time adhesive tape AdvReac Rash Verified 05/06/20 19:33 Review of Systems Review of Systems ROS Unobtainable: Unobtainable due to mental status/LOC Patient History Medical History (Updated 05/28/20 @ 22:24 by Berhane Espinal DO) Acid reflux disease (Acute) Hypertension (Inactive) Irritable bowel (Acute) Surgical History H/O hysterectomy for benign disease (Acute) History of appendectomy (Acute) Social History household members: spouse Smoking Status: Never smoker alcohol intake: former Smoking Status: Never smoker alcohol intake frequency: holidays/special occasions only Substance Use Type: does not use Exam Initial Vital Signs Initial Vital Signs: Vital Signs Temperature 97.7 F 05/28/20 16:19 Pulse Rate 75 05/28/20 16:19 Respiratory Rate 16 05/28/20 16:19 Blood Pressure 240/103 H 05/28/20 16:19 Pulse Oximetry 97 05/28/20 16:19 Const General: frail appearing and ill appearing Limitations: altered mental status HENMT Head: normal to inspection and normocephalic Resp Effort & Inspection: normal respiratory effort Auscultation: clear to auscultation bilaterally Cardio Rate: regular rate Rhythm: regular rhythm GI Inspection: non-distended Palpation: soft Skin Lesions: no lesions Rashes: no rashes Neuro General: patient awake and moves all extremities Cognition: abnormal cognition Speech: abnormal speech Extrem General: capillary refill normal and No edema Psych Appearance: disheveled Scores GCS [place] coma scale eye opening: Spontaneous [place] coma scale verbal response: Words [place] coma scale motor response: Localising [place] coma scale total score: 12 Course Orders Ordered: ED Orders 05/28/20 16:55 Complete Blood Count AUTO DIFF Stat Comprehensive Metabolic Panel Stat Magnesium Stat Phosphorous Stat Type and Screen Stat 05/28/20 17:21 Urinalysis and Microscopic Stat 05/28/20 18:13 Blood Culture Stat 05/28/20 20:17 CT head/brain wo con Stat Acetaminophen (Tylenol) 650 mg PO Q6HR PRN PRN Reason: Fever Albuterol (Ventolin Hfa (Vent/Covid R/O)) 2 puff INH Q4H PRN PRN Reason: Shortness Of Breath Atorvastatin Calcium (Lipitor) 40 mg PO BEDTIME CARINA Duloxetine HCl (Cymbalta) 30 mg PO BEDTIME CARINA Enoxaparin Sodium (Lovenox) 40 mg SUBCUT DAILY CARINA Gabapentin (Neurontin) 300 mg PO TID CARINA Sodium Chloride (Normal Saline 0.9%) 1,000 mls @ 150 mls/hr IV CONT CARINA Last Infusion: 05/28/20 21:10 Dose: 150 mls/hr Documented by: Admin: 05/28/20 18:02 Dose: 150 mls/hr Documented by: ABELARDO Nicardipine HCl 25 mg/ Sodium (Chloride) 250 mls @ 50 mls/hr IV TITRATE CARINA; Protocol Last Titration: 05/28/20 22:13 Dose: 2.5 mg/hr, 25 mls/hr Documented by: Titration: 05/28/20 21:39 Dose: 5 mg/hr, 50 mls/hr Documented by: Titration: 05/28/20 21:10 Dose: 2.5 mg/hr, 25 mls/hr Documented by: Titration: 05/28/20 18:28 Dose: 2.5 mg/hr, 25 mls/hr Documented by: Admin: 05/28/20 18:02 Dose: 5 mg/hr, 50 mls/hr Documented by: ABELARDO Lactated Ringer's (Lactated Ringers) 1,000 mls @ 75 mls/hr IV CONT CARINA Last Admin: 05/28/20 22:17 Dose: 75 mls/hr Documented by: SOCRATES Ampicillin Sodium/Sulbactam (Sodium 1.5 gm/ Sodium Chloride) 100 mls @ 100 mls/hr IV Q6H CARINA Magnesium Hydroxide (Milk Of Magnesia) 30 ml PO BID CARINA Naloxone HCl (Narcan) 0.2 mg IV Q2MIN PRN PRN Reason: Opiate Reversal Non-Formulary Medication (Eszopiclone) 3 mg PO BEDTIME CARINA Discontinued Medications Dicyclomine HCl (Bentyl) 10 mg PO NOW ONE Stop: 05/28/20 19:12 Last Admin: 05/28/20 19:38 Dose: 10 mg Documented by: ADRIENNE Vital Signs Vital signs: Vital Signs - 8 hr 05/28/20 16:19 05/28/20 16:25 05/28/20 16:30 Temperature 97.7 F Pulse Rate 75 74 76 Respiratory Rate 16 19 20 Blood Pressure 240/103 H 228/92 H Pulse Oximetry 97 100 100 05/28/20 16:59 05/28/20 17:00 05/28/20 17:15 Temperature Pulse Rate 76 76 75 Respiratory Rate 20 20 18 Blood Pressure 238/100 H 207/88 H Pulse Oximetry 100 100 100 05/28/20 17:30 05/28/20 17:45 05/28/20 18:00 Temperature Pulse Rate 73 79 76 Respiratory Rate 19 26 H 19 Blood Pressure 192/78 H 199/84 H 197/84 H Pulse Oximetry 100 100 99 05/28/20 18:24 05/28/20 18:30 05/28/20 19:00 Temperature Pulse Rate 79 78 76 Respiratory Rate 28 H 24 19 Blood Pressure 138/96 H Pulse Oximetry 94 95 05/28/20 19:13 05/28/20 19:16 05/28/20 19:30 Temperature Pulse Rate 77 75 Respiratory Rate 21 24 Blood Pressure 166/70 H 157/63 H 151/65 H Pulse Oximetry 97 98 05/28/20 19:45 05/28/20 19:49 05/28/20 20:00 Temperature Pulse Rate 79 78 82 Respiratory Rate 23 37 H 32 H Blood Pressure 155/69 H 159/70 H 163/81 H Pulse Oximetry 96 95 05/28/20 20:16 05/28/20 20:30 05/28/20 20:45 Temperature Pulse Rate 82 79 79 Respiratory Rate 27 H 28 H 25 H Blood Pressure 179/74 H 171/79 H 174/72 H Pulse Oximetry 90 L 96 97 Medical Decision Making Medical Records Medical records reviewed: Yes I reviewed the patient's medical records. Lab Data Lab results reviewed: Yes I reviewed the patient's lab results. Result diagrams: 05/28/20 16:55 05/28/20 16:55 Labs: Lab Results 05/28/20 05/28/20 05/28/20 Range/Units 16:55 16:55 16:55 WBC 5.9 (4.5-11.0) X10^3/uL RBC 3.22 L (4.0-5.2) X10^6/uL Hgb 8.5 L (12.0-16.0) g/dL Hct 27.0 L (36-46) % MCV 83.7 (80-100) fL MCH 26.3 (26-34) PG MCHC 31.4 (30-36) % RDW 24.6 H (11.6-14.8) % Plt Count 632 H (150-400) X10^3/uL Neut % (Auto) Not Reportable Lymph % (Auto) Not Reportable [place] % (Auto) Not Reportable Eos % (Auto) Not Reportable Baso % (Auto) Not Reportable Lymph # (Auto) Not Reportable [place] # (Auto) Not Reportable Baso # (Auto) Not Reportable Total Counted 100 Seg Neutrophils % 74.0 H (38-70) % Band Neutrophils % 1.0 L (3-7) % Lymphocytes % (Manual) 20.0 L (25-45) % Atypical Lymphs % 1.0 H ( - 0) % Monocytes % (Manual) 4.0 (2-11) % Neutrophils # (Manual) 4425 (5289-8090) /uL Platelet Estimate Increased on smear RBC Morphology See below Hypochromasia 2+ H Anisocytosis 3+ H Sodium 129 L (137-145) mmol/L Potassium 4.0 (3.4-5.1) mmol/L Chloride 94 L (98-107) mmol/L Carbon Dioxide 26 (22-32) mmol/L BUN 7 (7-17) mg/dL Creatinine 0.33 L (0.52-1.04) mg/dL Estimated GFR > 60.0 (>60) mL/min BUN/Creatinine Ratio 21.2 (6-22) Glucose 110 (80-110) mg/dL Calcium 9.0 (8.4-10.2) mg/dL Phosphorus 3.9 (2.8-4.1) mg/dL Magnesium 1.6 (1.6-2.3) mg/dL Total Bilirubin 0.7 (0.2-1.3) mg/dL AST 20 (14-36) IU/L ALT 7 (<35) IU/L Alkaline Phosphatase 90 (38-126) U/L Total Protein 7.4 (6.3-8.2) g/dL Albumin 3.8 (3.5-5.0) g/dL Globulin 3.6 (1.7-4.1) g/dL Albumin/Globulin Ratio 1.1 (1.0-2.8) COVID-19 PCR (Negative) Blood Type A Positive Antibody Screen Negative 05/28/20 Range/Units 19:35 WBC (4.5-11.0) X10^3/uL RBC (4.0-5.2) X10^6/uL Hgb (12.0-16.0) g/dL Hct (36-46) % MCV (80-100) fL MCH (26-34) PG MCHC (30-36) % RDW (11.6-14.8) % Plt Count (150-400) X10^3/uL Neut % (Auto) Lymph % (Auto) [place] % (Auto) Eos % (Auto) Baso % (Auto) Lymph # (Auto) [place] # (Auto) Baso # (Auto) Total Counted Seg Neutrophils % (38-70) % Band Neutrophils % (3-7) % Lymphocytes % (Manual) (25-45) % Atypical Lymphs % ( - 0) % Monocytes % (Manual) (2-11) % Neutrophils # (Manual) (9068-5764) /uL Platelet Estimate RBC Morphology Hypochromasia Anisocytosis Sodium (137-145) mmol/L Potassium (3.4-5.1) mmol/L Chloride (98-107) mmol/L Carbon Dioxide (22-32) mmol/L BUN (7-17) mg/dL Creatinine (0.52-1.04) mg/dL Estimated GFR (>60) mL/min BUN/Creatinine Ratio (6-22) Glucose (80-110) mg/dL Calcium (8.4-10.2) mg/dL Phosphorus (2.8-4.1) mg/dL Magnesium (1.6-2.3) mg/dL Total Bilirubin (0.2-1.3) mg/dL AST (14-36) IU/L ALT (<35) IU/L Alkaline Phosphatase (38-126) U/L Total Protein (6.3-8.2) g/dL Albumin (3.5-5.0) g/dL Globulin (1.7-4.1) g/dL Albumin/Globulin Ratio (1.0-2.8) COVID-19 PCR Negative (Negative) Blood Type Antibody Screen Imaging Data CT scan - head: Radiologist's Impression: [address] [address] [address] Scan Report Signed Patient: Kelly Benavidez R#: [id number] : 7Acct:[id number] Age/Sex: 74 / FDate of Service: 05/28/20 Loc: [id number] Accession Number: [id number] Procedure: CT head/brain wo con Ordering Provider: Berhane Espinal D.O. PROCEDURE: CT HEAD/BRAIN WO CON INDICATIONS: confusion TECHNIQUE: Noncontrast 4.5 mm thick angled axial sections acquired from the foramen magnum to the vertex, with coronal and sagittal reformats. For radiation dose reduction, the following was used: automated exposure control, adjustment of mA and/or kV according to patient size. COMPARISON: [facility], CT, CT HEAD/BRAIN WO CON, 03/02/2020, 13:51. FINDINGS: Image quality: Study degraded by moderate patient motion artifact. CSF spaces: Basal cisterns are patent. No extra-axial fluid collections. The ventricles are symmetric in size and shape. Brain: No intracranial bleeds or masses. There is cerebral volume loss for age, with resultant ventricular and sulcal prominence. There are periventricular and deep white matter chronic small vessel ischemic changes. There is intracranial internal carotid artery atherosclerosis. Skull and face: Calvarium and visualized facial bones appear intact, without suspicious lesions. Sinuses: Mastoid air cells appear clear. Redemonstration of complete opacification of the bilateral maxillary sinuses, as well as the frontal sinuses, and majority of the ethmoid sinuses. Sphenoid sinuses appear clear. IMPRESSION: Study is limited by significant patient motion artifact. Within these limitations, CT head without acute intracranial abnormalities. Severe, chronic bilateral maxillary, scattered ethmoid, and bilateral frontal sinusitis. Dictated by: Lyle Rea M.D. on 05/28/2020 at 21:38 Approved by: Lyle Rea M.D. on 05/28/2020 at 21:41 ECG Data Attestation: I personally reviewed and interpreted this ECG as follows: Prior ECG tracings: not available for review MDM Narrative Medical decision making narrative: Patient was initially seen by Dr. ryan upon arrival secondary to the altered mental status and the elevated blood pressure. The nicardipine drip was started after her very brief evaluation. I took patrol the patient upon my arrival. Patient's blood pressure is improved on the nicardipine. Patient is anemic but this does seem to be baseline for her. Patient has had some issues with potassium and sodium in the past and her sodium is just slightly low today however feel that this is not likely the cause of any of her symptoms. Patient is afebrile does not have a leukocytosis. Patient is unwilling/unable to provide any information. I did discuss the case with Dr. Kendall who is on-call for the patient's primary provider. Will admit for further evaluation and treatment. Discharge Plan Departure Patient Disposition: Admitted As Inpatient Clinical Impression: Acute confusion Hypertension Qualifiers: Hypertension type: unspecified Qualified Code(s): I10 - Essential (primary) hypertension Anemia Qualifiers: Anemia type: unspecified type Qualified Code(s): D64.9 - Anemia, unspecified Discharge Date/Time: 05/28/20 21:11 Referrals: Berhane Mccloud MD [Primary Care Provider] - Admit Date/Time: 05/28/20 20:53 Admit Provider: Thai Kendall
[2020-05-28] MEDS: DICYCLOMINE 10 MG CAPSULE PO (19:38)
[2020-05-28 20:05] LABS: Neutrophils Absolute Manual 4425 /uL (3000-5900); Total Cells Counted 100
[2020-05-28 20:06] LABS: Anisocytosis 3+
[2020-05-28 20:07] LABS: Hypochromasia 2+
[2020-05-28 20:08] LABS: Platelet Estimate Increased on smear
--- NOTE | 2020-05-28 20:17 | DI.CT.S_ITS ---
PROCEDURE: CT HEAD/BRAIN WO CON INDICATIONS: confusion TECHNIQUE: Noncontrast 4.5 mm thick angled axial sections acquired from the foramen magnum to the vertex, with coronal and sagittal reformats. For radiation dose reduction, the following was used: automated exposure control, adjustment of mA and/or kV according to patient size. COMPARISON: [facility], CT, CT HEAD/BRAIN WO CON, 03/02/2020, 13:51. FINDINGS: Image quality: Study degraded by moderate patient motion artifact. CSF spaces: Basal cisterns are patent. No extra-axial fluid collections. The ventricles are symmetric in size and shape. Brain: No intracranial bleeds or masses. There is cerebral volume loss for age, with resultant ventricular and sulcal prominence. There are periventricular and deep white matter chronic small vessel ischemic changes. There is intracranial internal carotid artery atherosclerosis. Skull and face: Calvarium and visualized facial bones appear intact, without suspicious lesions. Sinuses: Mastoid air cells appear clear. Redemonstration of complete opacification of the bilateral maxillary sinuses, as well as the frontal sinuses, and majority of the ethmoid sinuses. Sphenoid sinuses appear clear. IMPRESSION: Study is limited by significant patient motion artifact. Within these limitations, CT head without acute intracranial abnormalities. Severe, chronic bilateral maxillary, scattered ethmoid, and bilateral frontal sinusitis. Dictated by: Lyle Rea M.D. on 05/28/2020 at 21:38 Approved by: Lyle Rea M.D. on 05/28/2020 at 21:41
[2020-05-28 21:05] LABS: COVID19 -Nasal RAPID Negative (Negative)
--- NOTE | 2020-05-28 21:56 | P.HP_ITS ---
History of Present Illness History of Present Illness Date Patient Seen: 05/28/20 Time Patient Seen: 21:56 Date of Onset of Symptoms: 05/28/20 Chief complaint: Confusion Narrative: Patient is a 74-year-old patient of Dr. Berhane Mccloud who [place] [facility] [place] in today for mental status changes and hypertensive. History is completely obtained to her patient is responsive but not answering questions Patient apparently was actually doing pretty well since she was discharged. She was recently in the hospital admission date 05/07 and discharged on the . She was at that time came in with severe weakness poorly controlled high blood pressure hyperkalemia and generalized weakness. Patient was primarily felt to have hyponatremia which was her main issue. And that resolved over the time that she was here. She did develop some all O2 requirement during that hospitalization which was new she had had a history of left pleural effusion but it was smaller. It was originally diagnosed during her previous stay prior to the April admission and was felt to be secondary to severe mallet nutrition which patient continues to have. Otherwise there is no other significant change. Patient apparently was in her usual state of health after discharge and was actually doing quite well. She has no other significant changes. She was noting that she was seemed to be getting increased strength. Her O2 requirement was mostly going away but she is nervous to take her oxygen off. She does not mobilize much. She still been mostly in bed. But had been getting up and moving around. Mostly in her room. She does have good care taking and support. Apparently intermittently she is what appears to be brief periods of confusion. Not to the extent that it has had been concerning to her seems to resolve. She has no other symptoms associated with it. He noted that she started having a cough 2 days ago but but has not had any fevers or chills. Urine output has been good. She was doing overall well although her blood pressure is been significantly elevated since discharge. Apparently she had her metoprolol increased to 150 mg a day but did not feel like that made any changes. She otherwise started with a mild cough but she has not had any shortness of breath. She has had a nebulizer treatment twice a day period which seems to help. No fevers. No complaints of headaches visual symptoms sinus pain or other changes. Apparently since last night she began getting more confused. She apparently called her 3 times last night for getting up to go to the bathroom but she usually does not get up to go the bathroom because she has depends own. If found her on the f waqar this morning next to the bed being cold. Today she was more confused and blood pressure continued to be elevated. She had normal pulse and normal pulse ox. She was brought into the hospital mostly because she was confused and her blood pressure was elevated. Elevation of blood pressure in the emergency room was 230/1 0 5. She has no other significant changes had not had any chest pain or other complaint. Patient herself only complains of being cold no other changes or issues. 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[employer] good family support Patient History Medical History Acid reflux disease (Acute) Irritable bowel (Acute) Surgical History H/O hysterectomy for benign disease (Acute) History of appendectomy (Acute) Family & Social History Social History: household members spouse Prior Living Arrangements House Safety & Behavioral: Feels Safe in Current Yes Environment Been Physically Hurt or No Threatened By a Person Suicidal Ideation Description None Suicide Plan Description No Plan Tobacco & Substance use: Smoking Status Never smoker alcohol intake former alcohol intake frequency holiday/special occasion Substance Use Type does not use Meds Home Medications and Allergies Home Medications Medication Instructions Recorded Confirmed Type atorvastatin [Lipitor] 40 mg PO QDAY #0 tab 06/06/13 05/07/20 History gabapentin [Neurontin] 300 mg PO TID #0 06/06/13 05/07/20 History metoprolol succinate 25 mg PO BID #0 06/06/13 05/07/20 History montelukast [Singulair] 10 mg PO QDAY #0 tab 06/06/13 05/07/20 History Lactobacillus acidophilus 1 tab PO QDAY #0 12/25/16 05/07/20 History albuterol sulfate [Ventolin HFA] 2 puff INHALATION Q4-6H PRN 03/02/20 05/07/20 History escitalopram oxalate 20 mg PO DAILY 03/08/20 05/07/20 History eszopiclone 3 mg PO BEDTIME 03/08/20 05/07/20 History Nexium 20 mg PO BID 05/07/20 05/07/20 History Premarin 0.625 mg PO DAILY 05/07/20 05/07/20 History duloxetine 30 mg PO BEDTIME 05/07/20 05/07/20 History Allergies Allergy/AdvReac Type Severity Reaction Status Date / Time adhesive tape AdvReac Rash Verified 05/06/20 19:33 Review of Systems Review of Systems ROS: Yes All systems reviewed with the patient and are negative except as otherwise documented Exam Vital Signs (past 8 hours): - 05/28/20 16:19 05/28/20 16:25 05/28/20 16:30 Temperature 97.7 F Pulse Rate 75 74 76 Respiratory Rate 16 19 20 Blood Pressure 240/103 H 228/92 H Pulse Oximetry 97 100 100 05/28/20 16:59 05/28/20 17:00 05/28/20 17:15 Temperature Pulse Rate 76 76 75 Respiratory Rate 20 20 18 Blood Pressure 238/100 H 207/88 H Pulse Oximetry 100 100 100 05/28/20 17:30 05/28/20 17:45 05/28/20 18:00 Temperature Pulse Rate 73 79 76 Respiratory Rate 19 26 H 19 Blood Pressure 192/78 H 199/84 H 197/84 H Pulse Oximetry 100 100 99 05/28/20 18:24 05/28/20 18:30 05/28/20 19:00 Temperature Pulse Rate 79 78 76 Respiratory Rate 28 H 24 19 Blood Pressure 138/96 H Pulse Oximetry 94 95 05/28/20 19:13 05/28/20 19:16 05/28/20 19:30 Temperature Pulse Rate 77 75 Respiratory Rate 21 24 Blood Pressure 166/70 H 157/63 H 151/65 H Pulse Oximetry 97 98 05/28/20 19:45 05/28/20 19:49 05/28/20 20:00 Temperature Pulse Rate 79 78 82 Respiratory Rate 23 37 H 32 H Blood Pressure 155/69 H 159/70 H 163/81 H Pulse Oximetry 96 95 05/28/20 20:16 05/28/20 20:30 05/28/20 20:45 Temperature Pulse Rate 82 79 79 Respiratory Rate 27 H 28 H 25 H Blood Pressure 179/74 H 171/79 H 174/72 H Pulse Oximetry 90 L 96 97 05/28/20 21:00 Temperature Pulse Rate 80 Respiratory Rate 23 Blood Pressure 159/69 H Pulse Oximetry 96 Oxygen Delivery Method Nasal Cannula Oxygen Flow Rate 2 Narrative Exam Narrative: Alert female waking up but not responsive to questions other than answering is cold in no acute distress. Eyes appear unremarkable. Pupils are equal in a sponsor to light. EOMI is intact. She has follow me around in answering the question is otherwise described. Mucous membranes appear mildly moist. Neck supple without adenopathy JVD or bruits. Lungs show some crackles in the right base heart regular rate and rhythm without murmurs clicks rubs or gallops abdomen is soft positive bowel sounds nontender. Extremities without cyanosis clubbing edema. Neurologic exam is nonfocal she is moving everything but she is not responding to questions other than to say she is cold. Does seem confused. Objective Labs Result Diagrams: 05/28/20 16:55 05/28/20 16:55 Labs: Laboratory Results - last 24 hr 05/28/20 05/28/20 05/28/20 16:55 16:55 16:55 WBC 5.9 RBC 3.22 L Hgb 8.5 L Hct 27.0 L MCV 83.7 MCH 26.3 MCHC 31.4 RDW 24.6 H Plt Count 632 H Neut % (Auto) Not Reportable Lymph % (Auto) Not Reportable [place] % (Auto) Not Reportable Eos % (Auto) Not Reportable Baso % (Auto) Not Reportable Lymph # (Auto) Not Reportable [place] # (Auto) Not Reportable Baso # (Auto) Not Reportable Total Counted 100 Seg Neutrophils % 74.0 H Band Neutrophils % 1.0 L Lymphocytes % (Manual) 20.0 L Atypical Lymphs % 1.0 H Monocytes % (Manual) 4.0 Neutrophils # (Manual) 4425 Platelet Estimate Increased on smear RBC Morphology See below Hypochromasia 2+ H Anisocytosis 3+ H Sodium 129 L Potassium 4.0 Chloride 94 L Carbon Dioxide 26 BUN 7 Creatinine 0.33 L Estimated GFR > 60.0 BUN/Creatinine Ratio 21.2 Glucose 110 Calcium 9.0 Phosphorus 3.9 Magnesium 1.6 Total Bilirubin 0.7 AST 20 ALT 7 Alkaline Phosphatase 90 Total Protein 7.4 Albumin 3.8 Globulin 3.6 Albumin/Globulin Ratio 1.1 COVID-19 PCR Blood Type A Positive Antibody Screen Negative 05/28/20 19:35 WBC RBC Hgb Hct MCV MCH MCHC RDW Plt Count Neut % (Auto) Lymph % (Auto) [place] % (Auto) Eos % (Auto) Baso % (Auto) Lymph # (Auto) [place] # (Auto) Baso # (Auto) Total Counted Seg Neutrophils % Band Neutrophils % Lymphocytes % (Manual) Atypical Lymphs % Monocytes % (Manual) Neutrophils # (Manual) Platelet Estimate RBC Morphology Hypochromasia Anisocytosis Sodium Potassium Chloride Carbon Dioxide BUN Creatinine Estimated GFR BUN/Creatinine Ratio Glucose Calcium Phosphorus Magnesium Total Bilirubin AST ALT Alkaline Phosphatase Total Protein Albumin Globulin Albumin/Globulin Ratio COVID-19 PCR Negative Blood Type Antibody Screen Assessment & Plan Assessment & Plan narrative: Hypertensive crisis. On nicardipine drip. Actually doing well with that. Will continue to night and then hopefully wean off tomorrow and look for an alternative outpatient oral medication scheme. Clearly her metoprolol is not adequate. Discussed with . He understands. Metabolic encephalopathy/delirium. Etiology is somewhat unclear. She is nonfocal her CT scan does not show any significant acute changes. Difficult w ith her movement which would be an issue with her MRI. CT does show that she has pretty significant sinus disease and maybe this is part of the cause. She also has significant depression and whether or not that is impacting her knots hard to tell. Will have to follow. May need to have psychiatrist come in on Saturday. Will see how things go. I am hoping that some of this is related to her blood pressure which has affected her in the past and with improvement blood pressure will her arm hoping she will be improved tomorrow will see how things go. At this point will have to watch and see may need to consider transfer if persistent for neurologic evaluation. Sinus disease. How much of this is affecting her mental status is unclear. Certainly it is possible she has pretty extensive disease on CT scan. Will begin Unasyn which should have chronic coverage with anaerobic and follow. Will proceed from here. Depression period with severe impact in past. Hard to tell at this point can not really assess. Will continue usual meds and follow. Consult with psychiatrist if needed. Restless legs will continue usual medicines. Dehydration. Probable mild but she has not been taking fluids will hydrate slowly and follow. She will get some fluids from her nicardipine drip so will a dd low-dose saline and follow from there. Re-evaluate in a.m.. History of hypoxia. Etiology is unclear patient certainly no change from when she discharged. Will check chest x-ray tomorrow to make sure there is no abnormality does have some crackles in right base but my guess is if she mobilize more should be able to get off her oxygen History of hyponatremia. Stable. No treatment at this time. Code status full DVT prophylaxis is patient is high risk with minimal movement at home and now back in the hospital. Would like to start Lovenox GI prophylaxis. Should be stable low risk will follow. Disposition. ICU admission blood pressure control probably will be here to her 3 more days will see how things go. If mental status does not change may need to consider transfer Quality VTE Deep Vein Thrombosis/Pulmonary Embolism Present on Admission: No
[2020-05-28] MEDS: LACTATED RINGERS 1,000 ML 75 ML IV (22:17)
[2020-05-29] VITALS (31 sets, daily range): BP systolic 113–189; BP diastolic 56–82; PULSE 72–128; RESP 14–31; TEMP 36.1–36.8; O2SAT 83–100
[2020-05-29] MEDS: AMPICILLIN/SULBACTAM 1.5 GM 1.5 GM in SODIUM CHLORIDE 0.9% 100 ML IV ×3 (00:53→14:13)
[2020-05-29] MEDS: NICARDIPINE 25 MG in SODIUM CHLORIDE 0.9% 240 ML 25 ML IV (04:02)
--- NOTE | 2020-05-29 06:53 | PC.NURSE ---
Architectural Representative Note-Patient remains disoriented, says 1-2 words, mostly yes or no, moans occasionally, says stomach hurts, but does not explain anything further, denies nausea. Nicardipine gtt intermittently at 2.5mg/hr or 'off' to keep SBP < 160, see Emar and vital trends.
--- NOTE | 2020-05-29 07:55 | DI.RAD.S_ITS ---
PROCEDURE: XR CHEST 1V INDICATIONS: cough TECHNIQUE: One view of the chest was acquired. COMPARISON: [facility], CT, CT CHEST WO/W CON, 03/08/2020, 9:28. [facility], CR, XR CHEST 1V, 05/06/2020, 19:57. FINDINGS: Surgical changes and devices: None. Lungs and pleura: There is a small to moderately sized left-sided pleural effusion seen. There is trace blunting of the right costophrenic angle. Dependent atelectasis is seen on the left. No pneumothorax is seen. Mediastinum: Cardiac and mediastinal silhouettes are partially obscured, yet are regarded to be mildly enlarged. Bones and chest wall: Age-appropriate bony degenerative changes are seen. No suspicious bony lesions. Overlying soft tissues appear unremarkable. IMPRESSION: Small to moderately sized left-sided pleural effusion, which has increased in size compared to the prior examination. Trace right-sided pleural effusion. Mild cardiomegaly. Dictated by: Be Dickson M.D. on 05/29/2020 at 7:59 Approved by: Be Dickson M.D. on 05/29/2020 at 8:08
[2020-05-29 09:46] LABS: Bacteria Urine None Seen; Bilirubin Urine UA NEGATIVE (NEGATIVE); Color Urine UA YELLOW; Glucose Urine UA NEGATIVE (Negative); Ketones Urine UA 1+ (NEGATIVE); Leukocyte Esterase Urine UA NEGATIVE (NEGATIVE); Nitrite Urine UA NEGATIVE (Negative); Occult Blood Urine UA 3+ (Negative); Protein Urine UA 1+ (Negative); Specific Gravity Urine UA 1.015 (1.000-1.035); Urobilinogen Urine UA 0.2 E.U./dL (0.2)
[2020-05-29 09:58] LABS: Appearance Urine UA SL CLOUDY
[2020-05-29 09:59] LABS: Culture Indicated Urine Cult Not Indicated; RBC Urine 1-5/HPF (0-5/HPF); Squamous Epithelial Cell Urine 0-1 /HPF (0-5/HPF); WBC Urine None Seen (0-5/HPF)
--- NOTE | 2020-05-29 10:56 | CM.DANOTE ---
Patient is a 74 year old female READMIT on 05/28/20 for Confusion. Pt has M[employer] and [employer] for insurance and her PCP is Dr. Mccloud. EMR was reviewed. Per MD, pt's etiology is unknown at this time and still appears confused and unable to participate fully in conversation and mostly resting with some signs of abdominal pain. Not medically stable to discharge at this time. Per RN, will attempt to try P.O. and food with pt today and likely appropriate for PT/OT orders later today. Although pt may now be going into AFIB, further observation needed. RT involved and states pt maintaining good levels on 1.5L Oxygen (which is her baseline for her home O2) and tends to de-sat when on room air as pt very shallow breather. SW met bedside with pt and spouse and explained role and pt with eyes closed and some moaning but unable to respond to 's words of comfort or questioning. Spouse confirms that pt lives at home with him and their adult son who are pt's primary caregivers and they help get pt up to her 3rd floor room and pt is mostly bed and housebound and they assist her with mobility and bathing, as well as med management, meals, and chores. Pt is typically alert and oriented at baseline and able to be an effective communicator and therefore her current confusion and inability to respond is far below baseline. Pt is still currently open with [facility] and spouse is agreeable with [facility] at d/. SW inquired about their ongoing lack of interest in SNF and previous tentative plan of Respite Stay at [facility] at last admit and spouse confirms that they are not agreeable with a facility due to the COVID quarantine restrictions when pt would first be admitted and inability to visit pt bedside in a facility for up to 2 weeks. SW inquired about their ongoing plan of seeking private pay caregiver in the home to provide additional assist and spouse states that he has found the process of finding a caregiver challenging as each person or agency he has called they either no-show for interview or have a lack of qualified staff. Seems similar to previous attempt to establish pt at [facility] with Dr. Perez for significant depression as spouse was overwhelmed with the paperwork process and thought of trying to get pt out of the house for appointment. Spouse clearly states that he feels the only option at d/ that they are willing to consider is return home with [facility] and he and their adult son being primary caregivers for the pt. 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 Plan: SW to follow closely as spouse may now be considering changing pt's POLST and Pall Care Consult could be beneficial for Goals of Care discussion. Follow for PT/OT eval and recommendations when pt more medically appropriate to determine POC. KASSIDY Irizarry Discharge Planning/Care Management Advanced directive, confirm from FAMILY Start: 05/28/20 21:55 Freq: Q24H Status: Active Protocol: Document 05/28/20 22:04 MS (Rec: 05/28/20 22:11 MS [id number]) Advance Directive, confirm on record Time 21:30 Person contacted Copy received No CM Discharge Assessment Start: 05/29/20 10:52 Freq: Status: Active Protocol: Document 05/29/20 10:53 BF (Rec: 05/29/20 10:56 BF [id number]) Discharge Planning Assessment Assigned Optical Technician KASSIDY Sanches DPOA/Assigned Designee Name spouse Davey Contact Information [phone] Advance Directives? Yes Advance Directives on File Yes: gave to ED 4 days ago History Provided By Patient,Significant Other, Medical Record Has Patient been admitted in last 30 Yes days? Comment Last d/c home with HH from on 05/10/20 Prior Living Arrangements House Household Members spouse,children Type of transporation used prior to Relies on Others admit Independent with ADL's No Is patient alert and oriented? Yes: currently confused and not very responsive Needs Assistance With Bathing,Meal Prep,Managing Medications,Home Chores / Shopping Caregiver for Another No Community Services used prior to Oxygen Therapy,Physical admission: Therapy,Home Health Nurse DME Already Rented / Owned Bath Bench,Elevated Toilet Seat,FWW / Walker Comment Pending PT/OT eval and spouse adamant that pt to d/c home with HH and potentially private caregivers Comment Pending needs. Discharge Plan Home with Home Health Community Services Oxygen Therapy,Physical Therapy,Home Health Nurse Transportation Arrangement Family available to provide transport. Additional Comment Pending therapy evaluations. SNF/HH Preference Currently open with [facility], likely Resume orders at d/c Review Status In Process Please Provide Date Initial DC 05/29/20 Assessment Was Performed Next Review Type Continued Stay Review
[2020-05-29] MEDS: DILTIAZEM 125 MG/125 ML PIGGYBACK 10 MG IV (11:38)
[2020-05-29] MEDS: ENOXAPARIN 40 MG/0.4 ML SYRINGE SUBCUT (11:40)
[2020-05-29] MEDS: SODIUM CHLORIDE 0.9% FLUSH 10 ML IV (11:41)
[2020-05-29] MEDS: MORPHINE 2 MG/ML INJ 1 MG IV ×2 (12:15→16:29)
--- NOTE | 2020-05-29 12:33 | P.PN_ITS ---
Subjective Subjective Date Patient Seen: 05/29/20 Time Patient Seen: 12:33 Interval history: Patient minimally responsive today. Not complaining of any definitive pain. No other changes. Has been quiet through most of the night. Seems to be somewhat uncomfortable intermittently. Has been thinks that might be or stomach. We rediscussed her situation. 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 All started with the initial admission for depression and poor nutrition. He does feel like they have had a living well and they did not want extensive resuscitation. No other changes. Patient has not been eating Exam Vital Signs (past 8 hours): - 05/29/20 05:00 05/29/20 06:45 05/29/20 07:00 Temperature Pulse Rate 82 90 80 Respiratory Rate 21 23 19 Blood Pressure 148/62 H 169/73 H Pulse Oximetry 98 94 98 05/29/20 07:45 05/29/20 08:00 05/29/20 08:44 Temperature Pulse Rate 83 83 80 Respiratory Rate 20 19 20 Blood Pressure 162/68 H Pulse Oximetry 98 96 100 05/29/20 09:25 05/29/20 10:00 05/29/20 10:55 Temperature Pulse Rate 84 82 82 Respiratory Rate 21 21 22 Blood Pressure 155/68 H 155/68 H Pulse Oximetry 97 98 92 05/29/20 11:00 05/29/20 12:00 Temperature 98.3 F Pulse Rate 83 128 H Respiratory Rate 23 20 Blood Pressure 113/56 L 130/58 L Pulse Oximetry 94 99 Oxygen Delivery Method Nasal Cannula Oxygen Flow Rate 1.5 Narrative Exam Narrative: Pale-appearing female lying in bed in no acute distress minimally responsive. Pupils are equal response to light. Mucous membranes mildly dry. Neck is supple without adenopathy. Lungs are clear. Heart regular rate and rhythm. Abdomen scaphoid soft positive bowel sounds. She has no definitive pain or guarding. Extremities are unremarkable neurologic exam she is responding to pain but otherwise minimally arousable. Objective Labs Result Diagrams: 05/28/20 16:55 05/28/20 16:55 Labs: Laboratory Results - last 24 hr 05/28/20 05/28/20 05/28/20 16:55 16:55 16:55 WBC 5.9 RBC 3.22 L Hgb 8.5 L Hct 27.0 L MCV 83.7 MCH 26.3 MCHC 31.4 RDW 24.6 H Plt Count 632 H Neut % (Auto) Not Reportable Lymph % (Auto) Not Reportable Graves % (Auto) Not Reportable Eos % (Auto) Not Reportable Baso % (Auto) Not Reportable Lymph # (Auto) Not Reportable Graves # (Auto) Not Reportable Baso # (Auto) Not Reportable Total Counted 100 Seg Neutrophils % 74.0 H Band Neutrophils % 1.0 L Lymphocytes % (Manual) 20.0 L Atypical Lymphs % 1.0 H Monocytes % (Manual) 4.0 Neutrophils # (Manual) 4425 Platelet Estimate Increased on smear RBC Morphology See below Hypochromasia 2+ H Anisocytosis 3+ H Sodium 129 L Potassium 4.0 Chloride 94 L Carbon Dioxide 26 BUN 7 Creatinine 0.33 L Estimated GFR > 60.0 BUN/Creatinine Ratio 21.2 Glucose 110 Calcium 9.0 Phosphorus 3.9 Magnesium 1.6 Total Bilirubin 0.7 AST 20 ALT 7 Alkaline Phosphatase 90 Total Protein 7.4 Albumin 3.8 Globulin 3.6 Albumin/Globulin Ratio 1.1 Urine Color Urine Appearance Urine pH Ur Specific [place] Urine Protein Urine Glucose (UA) Urine Ketones Urine Occult Blood Urine Nitrate Urine Bilirubin Urine Urobilinogen Ur Leukocyte Esterase Urine RBC Urine WBC Ur Squamous Epith Cells Urine Bacteria Ur Culture Indicated? COVID-19 PCR Blood Type A Positive Antibody Screen Negative 05/28/20 05/29/20 19:35 09:35 WBC RBC Hgb Hct MCV MCH MCHC RDW Plt Count Neut % (Auto) Lymph % (Auto) Graves % (Auto) Eos % (Auto) Baso % (Auto) Lymph # (Auto) Graves # (Auto) Baso # (Auto) Total Counted Seg Neutrophils % Band Neutrophils % Lymphocytes % (Manual) Atypical Lymphs % Monocytes % (Manual) Neutrophils # (Manual) Platelet Estimate RBC Morphology Hypochromasia Anisocytosis Sodium Potassium Chloride Carbon Dioxide BUN Creatinine Estimated GFR BUN/Creatinine Ratio Glucose Calcium Phosphorus Magnesium Total Bilirubin AST ALT Alkaline Phosphatase Total Protein Albumin Globulin Albumin/Globulin Ratio Urine Color Yellow Urine Appearance Sl cloudy Urine pH 6.0 Ur Specific [place] 1.015 Urine Protein 1+ H Urine Glucose (UA) Negative Urine Ketones 1+ H Urine Occult Blood 3+ H Urine Nitrate Negative Urine Bilirubin Negative Urine Urobilinogen 0.2 Ur Leukocyte Esterase Negative Urine RBC 1-5/hpf Urine WBC None seen Ur Squamous Epith Cells 0-1 /hpf Urine Bacteria None seen Ur Culture Indicated? Cult not indicated COVID-19 PCR Negative Blood Type Antibody Screen Assessment & Plan Assessment & Plan narrative: Metabolic encephalopathy/delirium. Not sure what the specific change that happened. I think this is a progression of what ever was going on. Exam avitia were not seeing a definitive abnormality she does have an effusion I do not think it is infected. She does not have white count she does not have a fever and she is not acting as if she has abnormality. She does not have a change in her vital signs otherwise. Her sats of continued to be normal. Could consider a blood gas but I do not think that is going to change what we do. I think this may be progression of her depression in nutritional issues. Discussed with . Could be related to the sinus infection but at this point we can not make any significant changes. Will see what the next 24 hours brings as we treat with antibiotics for her sinus infection and go from there. Were going to have to make her NPO. How much of this is related to her depression not sure will considers evaluation with psychiatrist tomorrow. New onset AFib. Etiology somewhat unclear. Will obtain echo and thyroid. Certainly there is no other definitive stress. May need to consider further workup but at this point will see what these tests show. Cardizem for control. Wonder if this could potentially be part of her mental status changes that she was having intermittently. Discussed with Hypertensive crisis. Actually much improved. Still on on IV medications but due to her encephalopathy it does not appears if that is going to be an issue. She did have new onset I fib at this point will switch to diltiazem drip. Should have blood pressure and control. Sinus disease. Will continue IV medication. Dehydration. Due to the fact she is not taking p.o. will increase her fluid rate. Re-evaluate in a.m.. Depression. Unclear how much this is related will have to follow. History of hyponatremia stable. History of hypoxia. Really no change at this point. Code status we had a long discussion with . He does not feel like she would want full code. Will have to follow. DVT prophylaxis on Lovenox. GI prophylaxis low risk at this time. Disposition. A long discussion with I am very concerned this is a very serious situation and it is unclear what all the causes are. We discussed transfer to another institution with possible neurologist and we elected not to do that. I think low risk for meningitis. CT scan did not show a bleed I do not think it seems to be focal like stroke-like symptoms but may need an MRI will see how she does with therapy today. Were going to see what happens over the next 24 hours but I think this is high risk and has been understands that. Quality VTE Deep Vein Thrombosis/Pulmonary Embolism Present on Admission: No
--- NOTE | 2020-05-29 13:16 | DI.ECHO.S_ITS ---
Echocardiogram Report + + :Name: SEBAS BRENNER Study Date: 05/29/2020 Height: 61 in : :[facility] Weight: 86 lb : : Gender: Female BSA: 1.3 m2 : :: 1945 Age: 74 yrs BP: 143/61 mmHg: :Reason For Study: Atrial fibrillation : :Ordering Physician: [place] : :Hospitalist Performed By: Lian Cortez : :Referring: NOREEN ADAME : + + Interpretation Summary 1) Small left ventricular cavity with normal wall motoin and normal systolic function (EF 65-70%). 2) The right ventricle is normal size. Right ventricular systolic function is mildly reduced. 3) There is moderate tricuspid regurgitation. 4) The right ventricular systolic pressure is estimated to be at least 40 mmHg based on an estimated right atrial pressure of 8 mm Hg. 5) There is mild luminal irregularity and echogenicity in the abdominal aorta, suggestive of aortic atherosclerotic disease. 6) There is a moderately large left-sided pleural effusion. 7) Compared to the Echo done 03/10/2020, no significant change. Procedure: A two-dimensional transthoracic echocardiogram with color flow and Doppler was performed. The study quality was technically adequate. Comparison is made with the echocardiogram of 03/10/2020. The patient was in atrial fibrillation with heart rates between 90-113 bpm during the exam. Left Ventricle: The left ventricular cavity is small. There is normal left ventricular wall thickness. The ejection fraction is estimated to be 65-70%. There is ancc-lr-[id number] variability due to atrial fibrillation. Left ventricular systolic function is normal without focal wall motion abnormalities. Diastolic function could not be accurately assessed due to atrial fibrillation. Right Ventricle: The right ventricle is normal size. Right ventricular systolic function is mildly reduced. Atria: The left atrium is mildly dilated. The right atrium is normal in size. There is no Doppler evidence for an atrial septal defect. Mitral Valve: The mitral valve leaflets appear mildly thickened, but open well. There is mild mitral annular calcification. There is mild mitral regurgitation. Aortic Valve: The aortic valve is trileaflet. The aortic valve is mildly calcified. There is no hemodynamically significant valvular aortic stenosis. There is mild aortic regurgitation. Tricuspid Valve: The tricuspid valve leaflets are thin and pliable. There is moderate tricuspid regurgitation. The right ventricular systolic pressure is estimated to be at least 40 mmHg based on an estimated right atrial pressure of 8 mm Hg. Pulmonic Valve: The pulmonic valve is not well seen, but is grossly normal. There is a trace or physiologic amount of pulmonic regurgitation. Great Vessels: The aortic root is not well visualized but is probably normal size. There is mild luminal irregularity and echogenicity in the abdominal aorta, suggestive of aortic atherosclerotic disease. The IVC is of normal diameter and collapses less than 50% with a sniff. This suggests a right atrial pressure of 8 mm Hg. Pericardium/ Pleura There is no pericardial effusion. There is a moderately large left-sided pleural effusion. MMode/2D Measurements & Calculations LVIDd: 3.0 cm LVOT diam: 1.6 cm LVIDs: 1.9 cm IVSd: 0.88 cm LVPWd: 1.1 cm LV fang. diameter/BSA (cm/m^2): 2.3 LV sys. diameter/BSA (cm/m^2): 1.4 FS: 37.2 % LA A2 area: 17.3 cm2 RA long axis: 4.3 cm LA A4 area: 17.6 cm2 RA area: 11.5 cm2 LA length (vol): 5.1 cm RA vol: 26.5 ml LA vol: 50.9 ml RA : 20.1 ml/m2 LA vol index: 38.6 ml/m2 RVD1 (basal): 3.5 cm IVC diam: 1.6 cm TAPSE: 1.5 cm Doppler Measurements & Calculations Ao V2 max: 102.4 cm/sec LVOT Max Benitez: 85.9 cm/sec Ao V2 mean: 79.2 cm/sec LV V1 max P.0 mmHg Ao V2 VTI: 17.1 cm LV V1 VTI: 15.3 cm Ao max P.2 mmHg Ao mean P.6 mmHg PREET(I,D): 1.7 cm2 TR max benitez: 284.6 cm/sec PREET(V,D): 1.6 cm2 TR max P.4 mmHg PREET indexed to BSA (cm^2/m^2): 1.3 sev ratio: 0.89 SV(LVOT): 29.6 ml Reading Physician:02:42 PM
[2020-05-29] MEDS: LACTATED RINGERS 1,000 ML 125 ML IV (14:12)
--- NOTE | 2020-05-29 14:39 | PC.NURSE ---
pt went into afib this am and converted back to SR @ 1350 with dilt gtt ( dilt gtt replaced nicardipine gtt ) vss at present and most of shift, but pt remains incontinent and unable to say more than one word responses mostly yeah yeah- spouse at bedside. lungs dim and fine crackles bibasilar- on her home dose of 1.5l/nc - pt is dnr/dni and requires turning q 2h
--- NOTE | 2020-05-29 16:59 | PC.NURSE ---
Addendum entered by Laury Chaparro R.N. 05/29/20 21:04: 1813 Lab notified this nurse that blood cultures show staphyloccus species, isolation cart set up per protocol. Will continue to treat and monitor as ordered. Addendum entered by Laury Chaparro R.N. 05/29/20 18:49: Spoke to Dr Kendall, he agree's with the to make the patient comfort care, verbal orders were given to this nurse and entered into system. remains at bedside, but will be taking the patient's cellphone, social media manager and clothes home with him. Morphine and Ativan have been administered as ordered, providing the patient with rest. All monitoring has been discontinued as requested by . Will continue to care for patient as ordered. Original Note: 1645 at bedside, pt still in same condition, only responds with yeah-yeah. BP 175/75 HR 85. Pt movements indicates that pt is in pain, morphine administered as ordered. states that after conversation with Dr. Kendall this morning he would like to make the patient comfort care, brought in the most recent Health care directive which states pt is a DNR, DNI. Call was placed to Dr. Kendall, service has paged him, this nurse and are waiting for return call to discuss placing pt on comfort care.
[2020-05-29] MEDS: MORPHINE 2 MG/ML INJ IV ×3 (17:47→21:36)
[2020-05-29] MEDS: LORazepam 2 MG/ML INJ 1 MG IV (18:05)
[2020-05-29 20:37] LABS: Enterococcus species Not Detected (Not Detect); Listeria monocytogenes Not Detected (Not Detect)
[2020-05-29 20:42] LABS: Acinetobacter baumannii Not Detected (Not Detect); Enterobacteriaceae species Not Detected (Not Detect); Streptococcus agalactiae (Gr B Not Detected (Not Detect); Streptococcus pneumonia Not Detected (Not Detect); Streptococcus pyogenes (Gr A) Not Detected (Not Detect); Streptococcus species Not Detected (Not Detect)
[2020-05-29 20:43] LABS: Candida albicans Not Detected (Not Detect); Candida glabrata Not Detected (Not Detect); Candida krusei Not Detected (Not Detect); Candida parapsilosis Not Detected (Not Detect); Candida tropicalis Not Detected (Not Detect); E. coli Not Detected (Not Detect); Enterobacter cloacae complex Not Detected (Not Detect); Haemophilus influenzae Not Detected (Not Detect); Neisseria meningitidis Not Detected (Not Detect); Proteus species Not Detected (Not Detect); Pseudomonas aeruginosa Not Detected (Not Detect); Serratia marcescens Not Detected (Not Detect)
[2020-05-29 20:44] LABS: Staphylococcus species Detected (Not Detect)
[2020-05-29 22:11] LABS: Methicillin-resistant gene Not Detected (Not Detect)
[2020-05-30] MEDS: MORPHINE 2 MG/ML INJ IV ×4 (00:27→08:14)
--- NOTE | 2020-05-30 01:34 | PC.NURSE ---
Addendum entered by Radha Wren R.N. 05/30/20 05:37: Morphine and ativan given together provided this patient with very good pain control. Pt has been resting quietly with no verbal signs that she is in any pain - she appears very peaceful. Original Note: Pt unresponsive to voice or touch. Making little sounds um, um. Unable to tell if she is in any pain. Pt isn't grimacing or moving in such a way to indicate that she is hurting at this time. Medicating w/2mg Morphine for comfort when she appears to be in more discomfort. [place] assessment for patients comfort.
[2020-05-30] MEDS: LORazepam 2 MG/ML INJ 1 MG IV ×3 (02:14→08:15)
--- NOTE | 2020-05-30 07:38 | PM.PN.1 ---
Subjective Subjective Date Patient Seen: 05/30/20 Time Patient Seen: 07:38 Interval history: Patient minimally arousable this morning. Lying comfortably in bed. No other changes. Discussed with yesterday. He feels with progressive decline over the last several months and worsening which brought her into the hospital the given her previous wishes she would not want to be continued to be treated and asked for comfort care. Exam Vital Signs (past 8 hours): Oxygen Delivery Method Nasal Cannula Oxygen Flow Rate 1.5 Narrative Exam Narrative: Female elderly lying in bed minimally arousable comfortable She does move her extremities to pain but really not opening eyes Objective Labs Result Diagrams: 05/28/20 16:55 05/28/20 16:55 Labs: Laboratory Results - last 24 hr 05/28/20 05/28/20 05/29/20 16:55 16:55 09:35 TSH 4.90 H Urine Color Yellow Urine Appearance Sl cloudy Urine pH 6.0 Ur Specific [place] 1.015 Urine Protein 1+ H Urine Glucose (UA) Negative Urine Ketones 1+ H Urine Occult Blood 3+ H Urine Nitrate Negative Urine Bilirubin Negative Urine Urobilinogen 0.2 Ur Leukocyte Esterase Negative Urine RBC 1-5/hpf Urine WBC None seen Ur Squamous Epith Cells 0-1 /hpf Urine Bacteria None seen Ur Culture Indicated? Cult not indicated A. baumannii (PCR) Not detected Yu albicans (PCR) Not detected C. glabrata (PCR) Not detected C. krusei (PCR) Not detected C. parapsilosis (PCR) Not detected C. tropicalis (PCR) Not detected Enterobacteriac sp PCR Not detected E. cloacae complex PCR Not detected Enterococcus sp PCR Not detected E. coli (PCR) Not detected H. influenzae (PCR) Not detected Klebsiella oxytoca PCR Not detected Klebsiella pneumoniae Not detected List. monocytogenes PCR Not detected N. meningitidis (PCR) Not detected Proteus species (PCR) Not detected Serratia marcescens PCR Not detected Staphylococcus sp PCR Detected H Staph aureus (PCR) Not detected mecA-Methicil Res Gene Not detected Streptococcus sp PCR Not detected Group A Strep (PCR) Not detected Strep agalactiae (PCR) Not detected Strep pneumoniae (PCR) Not detected P. aeruginosa (PCR) Not detected Albert/B-Vanco Res Genes Not Reportable KPC-Carbap Res Gene PCR Not Reportable Assessment & Plan Assessment & Plan narrative: Metabolic encephalopathy. I think this is incredibly complicated case which am not sure there is a definitive cause. I suspect this multi focal. She did have 1 positive blood culture home which probably is a contaminant given the fact that her other blood culture was negative. Showed no evidence of fever or sepsis like issues given her blood pressure. She did go into AFib which now is resolved. Her hypertensive crisis was resolved yesterday with medication so I do not think that was a total cause although certainly may have impacted her period we had a long discussion with her who does not believe she would want to be continued to be pushed through this with likelihood of persistent issues gone going. What the definitive causes this is unclear. We have had long discussions about possible transfer and consult and he at this point feels as if her wishes would be to go to comfort care. It has just been a long 3 or 4 month process period where patient really isn't getting out of bed and really has decreased quality of life. At this point will make comfortable with morphine drip and Ativan as needed and depending on how she does may need to consider transfer but suspect this will not take that long period patient with minimal reserves and we discussed this. No other changes. Will watch closely Quality VTE Deep Vein Thrombosis/Pulmonary Embolism Present on Admission: No
[2020-05-30 07:54] VITALS: BP 171/70; PULSE 81; RESP 14; TEMP 36.9; O2SAT 94
[2020-05-30] MEDS: MORPHINE 50 MG in DEXTROSE 5 % IN WATER 45 ML IV (08:08)
--- NOTE | 2020-05-30 09:05 | CM.DPC ---
DCP/continued: Spoke with Dr. Kendall re: d/c plan. He reports patient currently transitioning to comfort care. Dr. Kendall requesting if patient does not today/tonight then hospice to be consult. TECHNICIAN TERMINAL AND REPEATER updated with RN/Cheryl. P: Pending. KASSIDY Valles
[2020-05-30] MEDS: SCOPOLAMINE 1 PATCH TOP (09:35)
--- NOTE | 2020-05-30 10:03 | PC.NURSE ---
Addendum entered by Cheryl Avalos R.N. 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
--- NOTE | 2020-05-31 13:29 | P.DN_ITS ---
Discharge Summary History of Illness Narrative: Patient is a 74-year-old patient of Dr. Berhane Mccloud who I [place] seeing in [facility] [place] who comes in today for mental status changes and hypertensive. History is completely obtained to her patient is responsive but not answering questions Patient apparently was actually doing pretty well since she was discharged. She was recently in the hospital admission date 05/07 and discharged on the . She was at that time came in with severe weakness poorly controlled high blood pressure hyperkalemia and generalized weakness. Patient was primarily felt to have hyponatremia which was her main issue. And that resolved over the time that she was here. She did develop some all O2 requirement during that hospitalization which was new she had had a history of left pleural effusion but it was smaller. It was originally diagnosed during her previous stay prior to the April admission and was felt to be secondary to severe mallet nutrition which patient continues to have. Otherwise there is no other significant change. Patient apparently was in her usual state of health after discharge and was actually doing quite well. She has no other significant changes. She was noting that she was seemed to be getting increased strength. Her O2 requirement was mostly going away but she is nervous to take her oxygen off. She does not mobilize much. She still been mostly in bed. But had been getting up and moving around. Mostly in her room. She does have good care taking and support. Apparently intermittently she is what appears to be brief periods of confusion. Not to the extent that it has had been concerning to her seems to resolve. She has no other symptoms associated with it. He noted that she started having a cough 2 days ago but but has not had any fevers or chills. Urine output has been good. She was doing overall well although her blood pressure is been significantly elevated since discharge. Apparently she had her metoprolol increased to 150 mg a day but did not feel like that made any changes. She otherwise started with a mild cough but she has not had any shortness of breath. She has had a nebulizer treatment twice a day period which seems to help. No fevers. No complaints of headaches visual symptoms sinus pain or other changes. Apparently since last night she began getting more confused. She apparently called her 3 times last night for getting up to go to the bathroom but she usually does not get up to go the bathroom because she has depends own. If found her on the floor this morning next to the bed being cold. Today she was more confused and blood pressure continued to be elevated. She had normal pulse and normal pulse ox. She was brought into the hospital mostly because she was confused and her blood pressure was elevated. Elevation of blood pressure in the emergency room was 230/1 0 5. She has no other significant changes had not had any chest pain or other complaint. Patient herself only complains of being cold no other changes or issues. 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 Patient was admitted for issues related to metabolic encep halopathy new onset AFib hypertension dehydration sinus disease depression her primary issue has been a slow decline over the last 3-6 months. She had been admitted several times. There had been no definitive change noted except for her poor nutritional status and her depression. Patient was admitted and her metabolic encephalopathy was not improving. She was minimally responsive. She had CT scan which showed no bleed. Shoe had normal blood pressure no white count no fever no evidence of significant infection. We had discussed spinal tap with due to the fact that she had pretty severe sinus infection we elected to treat that with Unasyn. We developed AFib on the 1st day. We also had her hypertensive crisis which may have been the cause of part of her encephalopathy but she improved and resolved over the course of the 1st 24 hours. There was no other change. Over the course of the 1st 24 hours we began discuss code status which she initially was a full code. feels as if she would not want this and he brought in her living well we had a long discussion about her desires and he did not feel like she would want to live like this. And her progressive decrease in functionality at home was becoming increasingly an issue she does not get out of bed. Maybe got into a chair once in a while. But was not living the full life that she was liking. Her quality of life was continued to decline and after this discussion we elected for comfort care. She was placed on comfort care and shows morphine and Ativan for comfort and shortly thereafter . Hospital Course Date of Admission: 05/28/20 20:53 Primary care provider: Berhane Mccloud MD Objective Labs Result Diagrams: 05/28/20 16:55 05/28/20 16:55
== END 2020-05-30 09:37 | disposition expired | DRG 304 ==
LOC: ED 19:13 → ICU 20:54
PROVIDERS: Emergency Medicine; Admitting Provider Family Medicine; Emergency Provider Emergency Medicine; PCP Family Medicine; Referring Provider Emergency Medicine; Visit Provider Family Medicine
DX: I16.9 Hypertensive crisis, unspecified (principal); G93.41 Metabolic encephalopathy; E43 Unspecified severe protein-calorie malnutrition; R40.2222 Coma scale, best verbal response, incomprehensible words, at arrival to emergency department; Z68.1 Body mass index [BMI] 19.9 or less, adult; R62.7 Adult failure to thrive; F32.9 Major depressive disorder, single episode, unspecified; R40.2352 Coma scale, best motor response, localizes pain, at arrival to emergency department; R40.2142 Coma scale, eyes open, spontaneous, at arrival to emergency department; E78.5 Hyperlipidemia, unspecified; E86.0 Dehydration; G25.81 Restless legs syndrome; F41.9 Anxiety disorder, unspecified; D64.9 Anemia, unspecified; R09.02 Hypoxemia; I48.91 Unspecified atrial fibrillation; Z51.5 Encounter for palliative care; Z11.59 Encounter for screening for other viral diseases; E03.9 Hypothyroidism, unspecified; M10.9 Gout, unspecified
CPT/HCPCS: 36415; 70450; 71045; 80048; 80053; 81001; 82533; 83735; 84100; 84443; 84550; 85025; 86850; 86900; 86901; 87040; 87150; 87205; 87635; 93005; 93306; 96365; 96366; 99285; A9270; J0295; J1650; J2060; J2270